=== PATIENT | female | born 1940 | race Caucasian/White ===

== ENCOUNTER 2016-08-03 22:06 | Emergency (ER) | payer MEDICARE, BC ==
--- NOTE | 2016-08-04 00:02 | ER Document Report ---
ED Medical Screen (RME) - General Stated Complaint: ABDOMINAL PAIN Time seen by provider: 23:57 Mode of Arrival: Ambulatory Information source: Patient Notes: 75-year-old female presents to ED for abdominal pain today is no nausea or vomiting or diarrhea. She last bowel movement was yesterday. States she had a "blocked colon "at one time. Patient states she has a history of low blood pressure but her pressure is 174/90 in the emergency room pulse is 76. Recheck on blood pressure was 157/84. Temp was 100.4 when they first at the vital signs now it is 99.4. Pulse ox 96 and pulse 114 I have greeted and performed a rapid initial assessment of this patient. A comprehensive ED assessment and evaluation of the patient, analysis of test results and completion of medical decision making process will be conducted by an additional ED providers. TRAVEL OUTSIDE OF THE [place] IN LAST 30 DAYS: No - Related Data Allergies/Adverse Reactions: ibuprofen [Ibuprofen] Allergy (Verified 09/10/13 14:50) ITCHING naproxen sodium [From Aleve] Allergy (Verified 09/10/13 14:50) ITCHING, PASSES OUT, SHOCK Penicillins Allergy (Verified 09/10/13 14:50) Hives theophylline anhydrous [From Theophyl] Allergy (Verified 09/10/13 14:50) Hives adhesive tape [Adhesive Tape] Adverse Reaction (Mild, Verified 09/10/13 14:50) rash Past Medical History Pulmonary Medical History: Reports: Hx Asthma, Hx COPD, Hx Pneumonia - 2009 Musculoskeltal Medical History: Reports Hx Arthritis - Hands and Spine Psychiatric Medical History: Denies: Hx Depression Past Surgical History: Reports: Hx Appendectomy, Hx Bowel Surgery, Hx Tubal Ligation - Immunizations Hx Diphtheria, Pertussis, Tetanus Vaccination: Yes Physical Exam - Vital signs Vitals: Temp Pulse Resp BP Pulse Ox 100.4 F 56 L 20 174/90 H 85 L 08/03/16 22:59 08/03/16 22:59 08/03/16 22:59 08/03/16 22:59 08/03/16 22:59 Course - Vital Signs Vital signs: Temp Pulse Resp BP Pulse Ox 100.4 F 56 L 20 174/90 H 85 L 08/03/16 22:59 08/03/16 22:59 08/03/16 22:59 08/03/16 22:59 08/03/16 22:59
[2016-08-04 01:10] LABS: HEMATOCRIT 47.3 % (36.0-47.0); HEMOGLOBIN 16.2 g/dL (12.0-15.5); HGB HCT DIFFERENCE 1.3; MEAN CORPUSCULAR HEMOGLOBIN 30.9 pg (27.0-33.4); MEAN CORPUSCULAR HGB CONC 34.2 g/dL (32.0-36.0); MEAN CORPUSCULAR VOLUME 90 fl (80-97); RED BLOOD COUNT 5.24 10^6/uL (3.72-5.28); RED CELL DISTRIBUTION WIDTH 12.9 % (11.5-14.0); WHITE BLOOD COUNT 15.3 10^3/uL (4.0-10.5)
[2016-08-04 01:12] LABS: APPEARANCE,URINE SLIGHTLY-CLOUDY; BILIRUBIN,URINE NEGATIVE (NEGATIVE); GLUCOSE, URINE NEGATIVE (NEGATIVE); KETONES,URINE 80 mg/dL (NEGATIVE); LEUKOCYTE ESTERASE,URINE TRACE (NEGATIVE); NITRITE,URINE NEGATIVE (NEGATIVE); PROTEIN,URINE NEGATIVE (NEGATIVE); URINE SPECIFIC GRAVITY 1.013; UROBILINOGEN,URINE NEGATIVE mg/dL (<2.0)
[2016-08-04 01:32] LABS: BAND NEUTROPHILS % (MANUAL) 3 % (3-5); BASOPHILS % (MANUAL) 0 % (0-2); EOSINOPHILS % (MANUAL) 0 % (0-6); LYMPHOCYTES % (MANUAL) 5 % (13-45); TOTAL CELLS COUNTED 100
[2016-08-04 01:33] LABS: OVALOCYTES 1+; POIKILOCYTOSIS 2+; STOMATOCYTES 1+; TEAR DROP CELLS 1+; TOXIC GRANULATION 1+; TOXIC VACUOLATION PRESENT
[2016-08-04 02:17] LABS: ALANINE AMINOTRANSFERASE 32 U/L (9-52); ALBUMIN 3.6 g/dL (3.5-5.0); ALKALINE PHOSPHATASE 83 U/L (38-126); ANION GAP 6 (5-19); ASPARTATE AMINO TRANSFERASE 29 U/L (14-36); BILIRUBIN,TOTAL 0.9 mg/dL (0.2-1.3); BLOOD UREA NITROGEN 8 mg/dL (7-20); CALCIUM 9.1 mg/dL (8.4-10.2); CARBON DIOXIDE 27 mmol/L (22-30); CHLORIDE 92 mmol/L (98-107); CREATININE RESULT 0.52 mg/dL (0.52-1.25); GLUCOSE 119 mg/dL (75-110); LIPASE 13.4 U/L (23-300); POTASSIUM 4.5 mmol/L (3.6-5.0); TOTAL PROTEIN 6.1 g/dL (6.3-8.2)
[2016-08-04] MEDS ORDERED: NORMAL SALINE 1000 ML 500 ML IV ONE (02:25)
--- NOTE | 2016-08-04 02:28 | ER Document Report ---
ED General - General Chief Complaint: Abdominal Pain >50 Stated Complaint: ABDOMINAL PAIN Mode of Arrival: Ambulatory Notes: Patient is a 75-year-old female presents with complaint of abdominal pain. Some nausea. No vomiting. No fevers. No diarrhea. Last bowel movement was yesterday. She has passed some gas today. She is a history of multiple abdominal surgeries including appendectomy, distract me, and removal of adhesions due to bowel obstruction. No runny nose cough or congestion. No other complaints at this time. TRAVEL OUTSIDE OF THE [place] IN LAST 30 DAYS: No - Related Data Allergies/Adverse Reactions: ibuprofen [Ibuprofen] Allergy (Verified 08/03/16 23:57) ITCHING naproxen sodium [From Aleve] Allergy (Verified 08/03/16 23:57) ITCHING, PASSES OUT, SHOCK Penicillins Allergy (Verified 08/03/16 23:57) Hives theophylline anhydrous [From Theophyl] Allergy (Verified 08/03/16 23:57) Hives adhesive tape [Adhesive Tape] Adverse Reaction (Mild, Verified 08/03/16 23:57) rash Past Medical History - General Information source: Patient - Social History Smoking Status: Former Smoker Chew tobacco use (# tins/day): No Frequency of alcohol use: None Drug Abuse: None Family History: Reviewed & Not Pertinent Patient has suicidal ideation: No Patient has homicidal ideation: No Pulmonary Medical History: Reports: Hx Asthma, Hx COPD, Hx Pneumonia - 2009 Renal/ Medical History: Denies: Hx Peritoneal Dialysis Musculoskeltal Medical History: Reports Hx Arthritis - Hands and Spine Psychiatric Medical History: Denies: Hx Depression Past Surgical History: Reports: Hx Appendectomy, Hx Bowel Surgery, Hx Tubal Ligation - Immunizations Hx Diphtheria, Pertussis, Tetanus Vaccination: Yes Hx Pneumococcal Vaccination: 06/15/10 Review of Systems - Review of Systems Notes: My Normal Review Basic REVIEW OF SYSTEMS: CONSTITUTIONAL : Denies fever, chills, or sweats. Denies recent illness. EENT: Denies eye, ear, throat, or mouth pain or symptoms. Denies nasal or sinus congestion. CARDIOVASCULAR: Denies chest pain. RESPIRATORY: Denies cough, cold, or chest congestion. Denies shortness of breath, difficulty breathing, or wheezing. GASTROINTESTINAL: Abdominal pain GENITOURINARY: Denies difficulty urinating, painful urination, burning, frequency, or blood in urine. MUSCULOSKELETAL: Denies neck or back pain or joint pain or swelling. SKIN: Denies rash or skin lesions. NEUROLOGICAL: Denies altered mental status or loss of consciousness. Denies headache. Denies weakness or paralysis or loss of use of either side. Denies problems with gait or speech. Denies sensory or motor loss. ALL OTHER SYSTEMS REVIEWED AND NEGATIVE. Physical Exam - Vital signs Vitals: Temp Resp BP 100.4 F 20 174/90 H 08/03/16 22:59 08/03/16 22:59 08/03/16 22:59 - Notes Notes: General Appearance: Well nourished, alert, cooperative, no acute distress, moderate obvious discomfort. Vitals: reviewed, See vital signs table. Head: no swelling or tenderness to the head Eyes: PERRL, EOMI, Conjuctiva clear Mouth: No decreasd moisture Neck: Supple, no neck tenderness, No thyromegaly Lungs: No wheezing, No rales, No rhonci, No accessory muscle use, good air exchange bilaterally. Heart: Normal rate, Regular rythm, No murmur, no rub Abdomen: Normal BS, soft, No rigidity, mild to moderate right lower quadrant abdominal tenderness to palpation, No guarding, no rebound, no abdominal masses , no organomegaly Extremities: strength 5/5 in all extremities, good pulses in all extremities, no swelling or tenderness in the extremities, no edema. Skin: warm, dry, appropriate color, no rash Neuro: speech clear, oriented x 3, normal affect, responds appropriately to questions. Course - Vital Signs Vital signs: Temp Pulse Resp BP Pulse Ox 99.5 F 62 20 164/86 H 95 08/04/16 04:05 08/04/16 04:05 08/04/16 04:05 08/04/16 04:05 08/04/16 04:05 - Laboratory Result Diagrams: 08/04/16 00:35 08/04/16 05:51 Laboratory results interpreted by me: 08/04/16 08/04/16 08/04/16 00:35 00:35 01:46 WBC 15.3 H Hgb 16.2 H Hct 47.3 H Seg Neuts % (Manual) 83 H Lymphocytes % (Manual) 5 L Abs Neuts (Manual) 13.2 H Sodium 125.0 L Chloride 92 L Creatinine Glucose 119 H Calcium Total Protein 6.1 L Lipase 13.4 L Urine Ketones 80 H Ur Leukocyte Esterase TRACE H 08/04/16 05:51 WBC Hgb Hct Seg Neuts % (Manual) Lymphocytes % (Manual) Abs Neuts (Manual) Sodium 125.7 L Chloride 95 L Creatinine 0.39 L Glucose 115 H Calcium 7.9 L Total Protein Lipase Urine Ketones Ur Leukocyte Esterase - Transfer of Care Notes: 08/04/16 06:55 The exact cause of the patient's symptoms are unclear. CT scan was negative. Urinalysis is negative. I'm concerned with patient's current state. She is hyponatremic. She's not confused from this. She's awake and alert very much with it and able answer all my questions appropriately. My concern is that she is also become tachycardic and tachypneic. Her lung iqbal are clear. I discussed with her and her that I feel that she should stay in hospital. My concern is that she could becoming septic. I'm concerned her hyponatremia could get worse. Patient refuses to stay. I explained to her that she will probably get more sick and become severely ill which could potentially to . Patient and understand this and she still refuses to stay. I informed patient if she does decide to go home that she must follow up with her doctor or us within the next 1-2 days to be rechecked. I informed her that I strongly encourage her to return to the ER at anytime so that we can reevaluate her and treat her. I informed her that we are not mad at her for leaving and that we just want the right thing done for her and that we strongly wish her to stay. I also reiterated this to the patient a second time after I typed up the discharge paperwork as she requested. Patient still refuses to stay again. We'll place her on Levaquin due to the low-grade fever and onset of difficulty breathing. I do not know if this will s help her because I do not know the exact cause of the fever that she had when she came in and why her breathing is starting to become abnormal and she started to come tachycardic. I again strongly encourage patient to stay. She again refuses. Her agrees that she will come back immediately if her symptoms worsen. Patient is awake and alert and oriented. She's neurologically appropriate. I cannot hold her against her will. I will discharge her against medical advice as she requests. Dictation of this chart was performed using voice recognition software; therefore, there may be some unintended grammatical errors. Discharge - Discharge Clinical Impression: Hyponatremia Abdominal pain Qualifiers: Abdominal location: unspecified location Qualified Code(s): R10.9 - Unspecified abdominal pain Condition: Stable Disposition: AGAINST MEDICAL ADVICE Additional Instructions: The exact cause of your abdominal pain is not clear. Your sodium level is considerably low. You now appear short of breath. I really feel that you should stay in the hospital. It is ultimately your choice and we respect your your right to make the choice that you want to leave against medical office representative. My concern is that your sodium could become even lower which could make you very sick and potentially could cause you to become very confused, very weak, and can sometimes lead to . We strongly encourage your to return to the ER at anytime for reevaluation and for further treatment. Please follow up with your doctor as soon as possible if you do not want to come back to the ER. Please eat salt containing foods. Return to the ER immediately if you have fevers, feel more weak, have vomiting, or feel that you are worsening. Prescriptions: Levofloxacin [Levaquin 750 mg Tablet] 750 mg PO DAILY #10 tablet Referrals: JANEEN CARLOS MD [Primary Care Provider] - (Follow up as soon as possible.)
[2016-08-04 04:06] VITALS: BP 164/86
[2016-08-04 06:27] LABS: ANION GAP 8 (5-19); BLOOD UREA NITROGEN 7 mg/dL (7-20); CALCIUM 7.9 mg/dL (8.4-10.2); CARBON DIOXIDE 23 mmol/L (22-30); CHLORIDE 95 mmol/L (98-107); CREATININE RESULT 0.39 mg/dL (0.52-1.25); GLUCOSE 115 mg/dL (75-110); POTASSIUM 3.8 mmol/L (3.6-5.0); SODIUM 125.7 mmol/L (137-145)
[2016-08-04] MEDS ORDERED: LEVOFLOXACIN 750 MG TABLET PO ONE (06:50)
== END 2016-08-04 07:07 | disposition left against medical advice (07) ==
LOC: ER 22:06
DX: E87.1 Hypo-osmolality and hyponatremia (principal); R10.9 Unspecified abdominal pain; R11.0 Nausea
CPT/HCPCS: 99285; 36415; 83690; 85025; 80048; 80053; 81001; 74022; 74177; A9270

== ENCOUNTER 2016-08-04 07:23 | Observation (INO) | payer MEDICARE, BC ==
--- NOTE | 2016-08-04 07:54 | ER Document Report ---
ED General - General Mode of Arrival: Wheelchair Information source: Patient TRAVEL OUTSIDE OF THE [place] IN LAST 30 DAYS: No - HPI Patient complains to provider of: diarrhea Onset: Just prior to arrival Onset/Duration: Sudden Associated symptoms: Shortness of breath, Weakness Recently seen / treated by doctor: Yes - Dr. Izquierdo 08/04/2016 <ASHLEIGH LEE - Last Filed: 08/04/16 08:09> <ANTHONY EDDY - Last Filed: 08/04/16 12:16> - General Chief Complaint: Diarrhea Stated Complaint: WEAKNESS Notes: Patient is a 75-year-old female presenting to the emergency department after just leaving AGAINST MEDICAL ADVICE. Patient returned because when she got in her car in the parking lot, she began to have watery diarrhea and felt very weak. Patient was seen by Dr. Izquierdo last night for right lower quadrant abdominal pain that began yesterday afternoon. Patient states her abdominal pain has resolved since she had her bout of diarrhea. Dr. Izquierdo attempted to admit the patient because she became tachycardic, tachypneic, and she was hyponatremic with a raised white blood cell count, but the patient refused to stay. Patient states that she regularly has difficulty breathing, and this is not abnormal for her. Patient is not on oxygen at home. (ASHLEIGH LEE) - Related Data Allergies/Adverse Reactions: ibuprofen [Ibuprofen] Allergy (Verified 08/03/16 23:57) ITCHING naproxen sodium [From Aleve] Allergy (Verified 08/03/16 23:57) ITCHING, PASSES OUT, SHOCK Penicillins Allergy (Verified 08/03/16 23:57) Hives theophylline anhydrous [From Theophyl] Allergy (Verified 08/03/16 23:57) Hives adhesive tape [Adhesive Tape] Adverse Reaction (Mild, Verified 08/03/16 23:57) rash Home Medications: Current Home Medications Albuterol Sulfate [Albuterol Sulfate 2.5mg/3 mL] 1 vial IH Q6H 08/04/16 [History ] Albuterol Sulfate [Proair HFA Inhalation Aerosol 8.5 gm MDI] 2 puff IH QID 08/04 [History] Fluticasone/Salmeterol [Advair 250-50 Diskus 28 dose] 1 puff IH Q12 08/04/16 [ History] Multivitamin [Multivitamins] 1 cap PO DAILY 08/04/16 [History] Olopatadine HCl [Pataday] 1 drop OU DAILY 08/04/16 [History] Tiotropium [place] [Spiriva Respimat] 2 puff IH QAM 08/04/16 [History] Past Medical History - General Information source: Patient - Social History Smoking Status: Former Smoker Lives with: Spouse/Significant other Family History: Reviewed & Not Pertinent Pulmonary Medical History: Reports: Hx Asthma, Hx COPD, Hx Pneumonia - 2009 Renal/ Medical History: Denies: Hx Peritoneal Dialysis Musculoskeltal Medical History: Reports Hx Arthritis - Hands and Spine Psychiatric Medical History: Denies: Hx Depression Past Surgical History: Reports: Hx Appendectomy, Hx Bowel Surgery, Hx Tubal Ligation - Immunizations Hx Diphtheria, Pertussis, Tetanus Vaccination: Yes Hx Pneumococcal Vaccination: 06/15/10 <ASHLEIGH LEE - Last Filed: 08/04/16 08:09> Review of Systems - Review of Systems Constitutional: See HPI, Weakness EENT: No symptoms reported Cardiovascular: No symptoms reported Respiratory: See HPI, Short of breath Gastrointestinal: See HPI, Diarrhea Genitourinary: No symptoms reported Female Genitourinary: No symptoms reported Musculoskeletal: No symptoms reported Skin: No symptoms reported Hematologic/Lymphatic: No symptoms reported Neurological/Psychological: No symptoms reported <ASHLEIGH LEE - Last Filed: 08/04/16 08:09> Physical Exam - General General appearance: Alert - HEENT Head: Normocephalic, Atraumatic Eyes: Normal Pupils: PERRL - Respiratory Respiratory status: Pursed lip breathing - Patient states this is normal for her., Tachypnea Chest status: Nontender - Cardiovascular Rhythm: Regular Heart sounds: Normal auscultation Murmur: No - Abdominal Inspection: Normal - Soft Distension: No distension Bowel sounds: Normal Tenderness: Nontender Organomegaly: No organomegaly - Back Back: Normal, Nontender - Extremities General upper extremity: Nontender, Normal color, Normal temperature General lower extremity: Nontender, Normal color, Normal temperature - Neurological Neuro grossly intact: Yes Cognition: Normal Orientation: AAOx4 [place] Coma Scale Eye Opening: Spontaneous [place] Coma Scale Verbal: Oriented [place] Coma Scale Motor: Obeys Commands [place] Coma Scale Total: 15 Speech: Normal - Psychological Associated symptoms: Normal affect, Normal mood - Skin Skin Temperature: Warm Skin Moisture: Dry Skin Color: Normal <JESUSERINASHLEIGH - Last Filed: 08/04/16 08:09> Course - Laboratory Result Diagrams: 08/04/16 07:58 08/04/16 07:58 - EKG Interpretation by Sd EKG shows normal: Sinus rhythm, Intervals, QRS Complexes, ST-T Waves. abnormal : [place] Rate: Tachycardia - 115 [place]/QRS: Right axis deviation When compared to previous EKG there are: No significant change - Consults Dr. Cunningham Time consulted: 11:00 Consulted provider: will come to ER <ANTHONY EDDY - Last Filed: 08/04/16 12:16> - Vital Signs Vital signs: Temp Pulse Resp BP Pulse Ox 97.8 F 105 H 15 129/84 H 94 08/04/16 11:20 08/04/16 11:20 08/04/16 11:20 08/04/16 11:20 08/04/16 11:20 (ANTHONY EDDY) - Laboratory Laboratory results interpreted by me: 08/04/16 08/04/16 08/04/16 07:58 07:58 07:58 WBC 18.3 H Seg Neuts % (Manual) 79 H Band Neutrophils % 10 H D Lymphocytes % (Manual) 3 L Abs Neuts (Manual) 16.3 H Sodium 126.0 L Chloride 91 L Glucose 136 H Lactic Acid Creatine Kinase 195 H Total Protein 6.1 L Urine Ketones Stool for White Cells RARE H 08/04/16 08/04/16 09:18 10:00 WBC Seg Neuts % (Manual) Band Neutrophils % Lymphocytes % (Manual) Abs Neuts (Manual) Sodium Chloride Glucose Lactic Acid 2.4 H Creatine Kinase Total Protein Urine Ketones 20 H Stool for White Cells (ANTHONY EDDY) Discharge <ASHLEIGH LEE - Last Filed: 08/04/16 08:09> - Discharge Admitting Provider: Hospitalist Unit Admitted: Medical Floor <ANTHONY EDDY - Last Filed: 08/04/16 12:16> - Discharge Clinical Impression: Diarrhea Qualifiers: Diarrhea type: unspecified type Qualified Code(s): R19.7 - Diarrhea, unspecified Leukocytosis Qualifiers: Leukocytosis type: bandemia Qualified Code(s): D72.825 - Bandemia COPD (chronic obstructive pulmonary disease) Qualifiers: COPD type: chronic bronchitis Chronic bronchitis type: unspecified Qualified Code(s): J42 - Unspecified chronic bronchitis Condition: Good Disposition: ADMITTED OBSERVATION Scribe Attestation: 08/04/16 11:48 I personally performed the services described in the documentation, reviewed and edited the documentation which was dictated to the scribe in my presence, and it accurately records my words and actions. (ANTHONY EDDY) Scribe Documentation - Scribe Written by Doug:: Ashleigh Lee 08/04/2016 [id number] acting as scribe for :: Franklin <ASHLEIGH LEE - Last Filed: 08/04/16 08:09>
[2016-08-04] MEDS ORDERED: NORMAL SALINE 1000 ML 1,000 ML IV ONE (07:55)
[2016-08-04 08:22] LABS: HEMATOCRIT 46.6 % (36.0-47.0); HEMOGLOBIN 15.5 g/dL (12.0-15.5); HGB HCT DIFFERENCE -0.1; MEAN CORPUSCULAR HEMOGLOBIN 30.4 pg (27.0-33.4); MEAN CORPUSCULAR HGB CONC 33.3 g/dL (32.0-36.0); MEAN CORPUSCULAR VOLUME 91 fl (80-97); RED CELL DISTRIBUTION WIDTH 13.2 % (11.5-14.0); WHITE BLOOD COUNT 18.3 10^3/uL (4.0-10.5)
[2016-08-04 08:40] LABS: ALANINE AMINOTRANSFERASE 29 U/L (9-52); ALBUMIN 3.5 g/dL (3.5-5.0); ALKALINE PHOSPHATASE 77 U/L (38-126); ANION GAP 10 (5-19); ASPARTATE AMINO TRANSFERASE 30 U/L (14-36); BILIRUBIN,TOTAL 1.2 mg/dL (0.2-1.3); BLOOD UREA NITROGEN 7 mg/dL (7-20); CALCIUM 8.8 mg/dL (8.4-10.2); CARBON DIOXIDE 25 mmol/L (22-30); CHLORIDE 91 mmol/L (98-107); CREATINE KINASE 195 U/L (30-135); CREATININE RESULT 0.59 mg/dL (0.52-1.25); GLUCOSE 136 mg/dL (75-110); POTASSIUM 4.3 mmol/L (3.6-5.0); TOTAL PROTEIN 6.1 g/dL (6.3-8.2)
[2016-08-04 08:43] LABS: BAND NEUTROPHILS % (MANUAL) 10 % (3-5); BASOPHILS % (MANUAL) 0 % (0-2); EOSINOPHILS % (MANUAL) 0 % (0-6); LYMPHOCYTES % (MANUAL) 3 % (13-45); TOTAL CELLS COUNTED 100
[2016-08-04 08:44] LABS: RBC MORPHOLOGY COMMENT NORMO-CYTIC/CHROMIC; TOXIC GRANULATION 1+
[2016-08-04 08:53] LABS: CREATINE KINASE MB 2.59 ng/mL (<4.55)
[2016-08-04 08:55] LABS: TROPONIN I < 0.012 ng/mL
[2016-08-04] MEDS ORDERED: METRONIDAZOLE 500 MG/NS RTU 100 ML IV ONE (09:43)
[2016-08-04 10:18] LABS: APPEARANCE,URINE CLEAR; BILIRUBIN,URINE NEGATIVE (NEGATIVE); GLUCOSE, URINE NEGATIVE (NEGATIVE); KETONES,URINE 20 mg/dL (NEGATIVE); LEUKOCYTE ESTERASE,URINE NEGATIVE (NEGATIVE); NITRITE,URINE NEGATIVE (NEGATIVE); PROTEIN,URINE NEGATIVE (NEGATIVE); URINE SPECIFIC GRAVITY 1.014; UROBILINOGEN,URINE NEGATIVE mg/dL (<2.0)
[2016-08-04] MEDS ORDERED: ALBUTEROL SULFATE 0.083% NEB 2.5 MG/3 ML AMPUL NEB PRN (12:00)
[2016-08-04] MEDS ORDERED: NORMAL SALINE 1000 ML 1,000 ML IV PRN (12:00)
[2016-08-04] MEDS ORDERED: ACETAMINOPHEN 325 MG TABLET PO PRN (12:00)
--- NOTE | 2016-08-04 12:29 | PDOC H&P ---
History of Present Illness Admission Date/PCP: 08/04/16 11:49 JANEEN CARLOS MD Patient complains of: Abdominal pain History of Present Illness: AXEL NORMAN is a 75 year old female with a long history of COPD who quit smoking 2 days ago presents with abdominal pain. The patient reports she's had right lower quadrant pain for the last 2 days and presented to emergency room yesterday evening. She had a CT done which showed no obvious abnormalities however given her leukocytosis it was recommended that she come in as an inpatient. Patient refused to come in and went out to her car. She then had explosive diarrhea after having gotten oral contrast for CT scan. Patient presented back to emergency room and agreed for admission. The patient has a history of diverticulitis in the past. She also has had problems with a very narrow caliber twisted colon according to her anaesthetic technician. He had to use a pediatric scope to do her colonoscopy the last time. The patient at the time of my exam reports that her abdominal pain has completely resolved. She denies having any fevers or chills but did have the elevated white blood cell count. She denies any radiation of the pain when she had it and she reports that the pain was relieved after she had her bowel movement. Patient will be admitted as observation for overnight monitoring to make certain her pain has indeed resolved. She is started on Cipro and Flagyl for presumed diverticulitis. Past Medical History Pulmonary Medical History: Reports: Asthma, Chronic Obstructive Pulmonary Disease (COPD), Pneumonia - 2009 Neurological Medical History: Reports: None Endocrine Medical History: Reports: None Renal/ Medical History: Reports: None Malignancy Medical History: Reports: None GI Medical History: Reports: Diverticulitis Musculoskeltal Medical History: Reports: Arthritis - Hands and Spine Skin Medical History: Reports: None Psychiatric Medical History: Reports: General Anxiety Disorder Denies: Depression Traumatic Medical History: Reports: None Hematology: Denies: Anemia, Sickle Cell Disease Infectious Medical History: Reports: None Past Surgical History Past Surgical History: Reports: Appendectomy, Tubal Ligation Denies: Amputation Social History Information Source: Patient Lives with: Spouse/Significant other Smoking Status: Current Every Day Smoker Cigarettes Packs Per Day: 0.5 Frequency of Alcohol Use: Occasional Hx Recreational Drug Use: No Drugs: None Hx Prescription Drug Abuse: No - Advance Directive Resuscitation Status: Do Not Resuscitate Surrogate healthcare decision maker:: Her Family History Family History: Father at age 62 with an aneurysm. Mother at age 82 with coronary artery disease. Parental Family History Reviewed: Yes Children Family History Reviewed: No Sibling(s) Family History Reviewed.: No Medication/Allergy Home Medications: Albuterol Sulfate [Albuterol Sulfate 2.5mg/3 mL] 1 vial IH Q6H 08/04/16 Albuterol Sulfate [Proair HFA Inhalation Aerosol 8.5 gm MDI] 2 puff IH QID 08/04 Fluticasone/Salmeterol [Advair 250-50 Diskus 28 dose] 1 puff IH Q12 08/04/16 Multivitamin [Multivitamins] 1 cap PO DAILY 08/04/16 Olopatadine HCl [Pataday] 1 drop OU DAILY 08/04/16 Tiotropium [place] [Spiriva Respimat] 2 puff IH QAM 08/04/16 Allergies/Adverse Reactions: ibuprofen [Ibuprofen] Allergy (Verified 08/03/16 23:57) ITCHING naproxen sodium [From Aleve] Allergy (Verified 08/03/16 23:57) ITCHING, PASSES OUT, SHOCK Penicillins Allergy (Verified 08/03/16 23:57) Hives theophylline anhydrous [From Theophyl] Allergy (Verified 08/03/16 23:57) Hives adhesive tape [Adhesive Tape] Adverse Reaction (Mild, Verified 08/03/16 23:57) rash Review of Systems Constitutional: ABSENT: chills, fever(s), headache(s), weight gain, weight loss Eyes: ABSENT: visual disturbances Ears: ABSENT: hearing changes Cardiovascular: ABSENT: chest pain, dyspnea on exertion, edema, orthropnea, palpitations Respiratory: ABSENT: cough, hemoptysis Gastrointestinal: PRESENT: as per HPI Genitourinary: ABSENT: dysuria, hematuria Musculoskeletal: ABSENT: joint swelling Integumentary: ABSENT: rash, wounds Neurological: ABSENT: abnormal gait, abnormal speech, confusion, dizziness, focal weakness, syncope Psychiatric: ABSENT: anxiety, depression Endocrine: ABSENT: cold intolerance, heat intolerance, polydipsia, polyuria Hematologic/Lymphatic: ABSENT: easy bleeding, easy bruising Physical Exam Vital Signs: Temp Pulse Resp BP Pulse Ox 97.8 F 105 H 15 129/84 H 94 08/04/16 11:20 08/04/16 11:20 08/04/16 11:20 08/04/16 11:20 08/04/16 11:20 General appearance: PRESENT: no acute distress, thin Head exam: PRESENT: atraumatic, normocephalic Eye exam: PRESENT: conjunctiva pink, EOMI, PERRLA. ABSENT: scleral icterus Ear exam: PRESENT: normal external ear exam Mouth exam: PRESENT: moist, tongue midline Neck exam: ABSENT: carotid bruit, JVD, lymphadenopathy, thyromegaly Respiratory exam: PRESENT: clear to auscultation henri. ABSENT: rales, rhonchi, wheezes Cardiovascular exam: PRESENT: RRR. ABSENT: diastolic murmur, rubs, systolic murmur Pulses: PRESENT: normal dorsalis pedis pul GI/Abdominal exam: PRESENT: normal bowel sounds, soft. ABSENT: distended, guarding, mass, organolmegaly, rebound, tenderness Rectal exam: PRESENT: deferred Extremities exam: ABSENT: calf tenderness, clubbing, pedal edema Neurological exam: PRESENT: alert, awake, oriented to person, oriented to place , oriented to time, oriented to situation, CN II-XII grossly intact. ABSENT: motor sensory deficit Psychiatric exam: PRESENT: appropriate affect, normal mood Skin exam: PRESENT: dry, intact, warm. ABSENT: cyanosis, rash Assessment & Plan - Diagnosis (1) Abdominal pain Qualifiers: Abdominal location: unspecified location Qualified Code(s): R10.9 - Unspecified abdominal pain Is this a current diagnosis for this admission?: YesPlan: Pain most likely secondary to diverticulitis. (2) Diverticulitis Is this a current diagnosis for this admission?: YesPlan: Patient has dry lower quadrant pain that has resolved after a large bowel movement. She does have a history of a narrow stricture:. There may be a component of partial obstruction to this. Patient does not have any evidence for obstruction at this time and the CAT scan showed no evidence for acute inflammation. We'll treat presumptively for diverticulitis with Cipro and Flagyl. If Her white count decreases overnight she can hopefully be discharged home tomorrow. (3) Tobacco dependency Is this a current diagnosis for this admission?: YesPlan: Patient told me that she quit smoking however when asked she quit 2 days ago she started with symptoms. Patient is encouraged to quit smoking (4) Anxiety Is this a current diagnosis for this admission?: Yes (5) Hyponatremia Is this a current diagnosis for this admission?: YesPlan: We'll give IV fluids and monitor. (6) COPD (chronic obstructive pulmonary disease) Qualifiers: COPD type: chronic bronchitis Chronic bronchitis type: unspecified Qualified Code(s): J42 - Unspecified chronic bronchitis Is this a current diagnosis for this admission?: YesPlan: Patient reports that she is at her baseline respiratory status now. - Time Time Spent: 50 to 70 Minutes - Inpatient Certification Medical Necessity: Need for IV Antibiotics - Plan Summary Plan Summary: Patient will be made an observation as I anticipate his require less than two midnight hospital stay
[2016-08-04] MEDS: METRONIDAZOLE 500 MG/NS RTU 100 ML IV SCH ×2 (15:52→22:36)
[2016-08-04] MEDS: CIPROFLOXACIN 400 MG/D5W RTU 400 MG/200 ML RTUPB IV SCH (17:29)
[2016-08-04] MEDS: ALBUTEROL SULFATE HFA (90 MCG/PUFF) 200 PUFF/8.5 GM MDI IH SCH ×2 (18:27→21:28)
--- NOTE | 2016-08-04 20:08 | EKG REPORT ---
SEVERITY:- OTHERWISE NORMAL ECG - SINUS TACHYCARDIA BORDERLINE RIGHT AXIS DEVIATION : Confirmed by: Brandie Erickson 04-Aug-2016 20:07:24
[2016-08-04] MEDS ORDERED: TRAZODONE HCL 50 MG TABLET PO ONE (20:45)
[2016-08-04] MEDS: FAMOTIDINE 20 MG TABLET PO SCH (21:25)
[2016-08-04] MEDS: FLUTICASONE/SALMETEROL DISKUS 250-50 MCG/DOSE IH SCH (21:27)
[2016-08-05] MEDS: METRONIDAZOLE 500 MG/NS RTU 100 ML IV SCH ×2 (03:01→09:29)
[2016-08-05] MEDS: CIPROFLOXACIN 400 MG/D5W RTU 400 MG/200 ML RTUPB IV SCH (05:48)
[2016-08-05 07:07] LABS: HEMATOCRIT 40.5 % (36.0-47.0); HEMOGLOBIN 13.8 g/dL (12.0-15.5); HGB HCT DIFFERENCE 0.9; MEAN CORPUSCULAR HEMOGLOBIN 30.8 pg (27.0-33.4); MEAN CORPUSCULAR HGB CONC 34.2 g/dL (32.0-36.0); MEAN CORPUSCULAR VOLUME 90 fl (80-97); RED CELL DISTRIBUTION WIDTH 13.2 % (11.5-14.0)
[2016-08-05 07:23] LABS: ANION GAP 6 (5-19); BLOOD UREA NITROGEN 8 mg/dL (7-20); CALCIUM 8.5 mg/dL (8.4-10.2); CARBON DIOXIDE 25 mmol/L (22-30); CHLORIDE 102 mmol/L (98-107); CREATININE RESULT 0.42 mg/dL (0.52-1.25); GLUCOSE 125 mg/dL (75-110); POTASSIUM 3.9 mmol/L (3.6-5.0); SODIUM 132.8 mmol/L (137-145)
[2016-08-05] MEDS: FAMOTIDINE 20 MG TABLET PO SCH (09:29)
[2016-08-05] MEDS: ALBUTEROL SULFATE HFA (90 MCG/PUFF) 200 PUFF/8.5 GM MDI IH SCH ×2 (09:30→13:53)
[2016-08-05] MEDS: FLUTICASONE/SALMETEROL DISKUS 250-50 MCG/DOSE IH SCH (09:30)
--- NOTE | 2016-08-05 09:50 | Physician Advisory Note ---
Physician Advisor ProgressNote .: Pursuant to the plan for [facility], I have reviewed the medical record for this patient. Physician Advisor Statement: Possible documentation opportunities if attending agrees: 1. "SIRS, likely due to ____[noninfectious cause], present on arrival" - vs. "[employer] [place] 5Bd possible sepsis due to diverticulitis, POA, ruled out/in" - tachycardia, leukocytosis, high lactate level, ... 2. ? - new dx of "chronic hypoxemic Respiratory Failure needing ___L O2" ? 3. "Acute Hyponatremia, likely due to ____" (?intravascular volume depletion? - need to give cause) 4. Status points in bold below - may be approp to make Inpt today, with documentation of reasons. Feel free to use points below w/which you agree. 5. "underweight with protein-calorie malnutrition [state mild, mod, or severe] with BMI 17.3, ____[?wt loss, ?appetite loss, ]" [if possible, give specifics on intake, wt loss, loss of SQ fat & muscle mass, diminished hand service administrator strength, & clinical importance such as (A) nutritional assessment ordered, (B) modified diet or supplements ordered, (C) additional labs ordered, (D) prolonged wound healing time, (E) delayed infxn clearance] - - - Auditors are strict about the dx of malnutrition - needs to be explicitly spelled out. As always, if concerned about any unstable VS or abnormal labs, please comment on them & note what doing about them, & please document each day the potential clinical problems you are concerned could occur if pt not kept in hospital for tx at this time. Discussion: 75yo female w/ chronic co-morbidities including COPD, asthma, tobacco abuse she reports she quit 2 days ago when sx began, diverticulitis, "very narrow caliber twisted colon" insufficient to allow passage of usual adult scope, who was just seen overnight in ED for RLQ pain & was advised admission due to tachypnea/ tachycardia/leukocytosis/hyponatremia but left AMA (after CT with po contrast), - presented 2/20 AM to ED w/diarrhea & feeling very weak. She reported her pursed lip breathing, difficulty breathing is baseline for her & she doesn't use O2 at home. RLQ pain resolved after the diarrhea. (+) HR 105, RR15, BP 129/84, WBC 18.3 w/Lt shift/bandemia, Na 126, glc 136, fecal leukocytes (+) tho'rare, lactate level 2.4, ur ketones 20, recent CT on was neg for acute findings. BMI 17.3. Attending ordered Status: Elderly pt with underlying severe lung dz & unusually narrow caliber colon came in with RLQ pain that then resolved after developing diarrhea (?due to contrast) . Most concerning = the accompanying vital sign instability & leukocytosis with bandemia, SIRS vs sepsis, severe acute hyponatremia. Appropriately kept as Outpt Obs overnight. After 1 MN this visit so far, WBC down to 11.0 (still not WNL, though), she has developed new thrombocytopenia (which could be a delayed result of initial sepsis, or a new development itself, but is a prominent drop from 210 to 130). Na is up to 132.8 but is still not back to her baseline of mid 130s. She remains persistently tachycardic recurrently tachypneic. Sats as low as 93% on 2L O2 (gives P/F ratio of 243, which is equivalent to a pO2 of 51 - or sat 86 % - on RA), indicative of either acute or chronic hypoxemic resp failure. If on re-assessment of pt today, attending determines, as this reviewer suspects , that this pt is not yet clinically stable enough for safe d/c today but that continued eval/monitoring/tx in inpatient hospital setting medically reasonable & necessary to protect pt's health, safety, & medical condition, please document concerns/issues & consider change to Inpt status. Thanks for your help with documentation accuracy/specificity improvement! Naima Schmitz MD [facility] Physician Advisor, Fellow of Hospital Medicine
[2016-08-05] MEDS ORDERED: (PENDING PHARMACY ID) (Multivitamin [Multivitamins] 1 CAP) PO SCH (10:00)
[2016-08-05] MEDS ORDERED: (PENDING PHARMACY ID) (Tiotropium Bromide [Spiriva Respimat] 2 PUFF) IH SCH (10:00)
[2016-08-05] MEDS ORDERED: MULTIVITAMIN TABLET PO SCH (10:00)
--- NOTE | 2016-08-05 14:11 | PDOC DISCHARGE SUMMARY ---
General - Admit/Disc Date/PCP Admission Date/Primary Care Provider: 08/04/16 12:00 JANEEN CARLOS MD Discharge Date: 08/05/16 - Discharge Diagnosis (1) Diverticulitis Is this a current diagnosis for this admission?: Yes (2) COPD (chronic obstructive pulmonary disease) Is this a current diagnosis for this admission?: Yes (3) Anxiety Is this a current diagnosis for this admission?: Yes - Additional Information Resuscitation Status: Do Not Resuscitate Discharge Diet: Regular Discharge Activity: Activity As Tolerated, Balance Activity w/Rest Home Medications: Albuterol Sulfate [Albuterol Sulfate 2.5mg/3 mL] 1 vial IH Q6H 08/04/16 Albuterol Sulfate [Proair HFA Inhalation Aerosol 8.5 gm MDI] 2 puff IH QID 08/04 Fluticasone/Salmeterol [Advair 250-50 Diskus 28 dose] 1 puff IH Q12 08/04/16 Multivitamin [Multivitamins] 1 cap PO DAILY 08/04/16 Olopatadine HCl [Pataday] 1 drop OU DAILY 08/04/16 Tiotropium Paguate [Spiriva Respimat] 2 puff IH QAM 08/04/16 Ciprofloxacin HCl [Cipro 500 mg Tablet] 500 mg PO BID #18 tablet 08/05/16 Metronidazole [Flagyl 500 mg Tablet] 500 mg PO Q6A #36 tablet 08/05/16 Additional Information: 1. Increase oral fluid intake 2. Follow-up final result of stool and blood culture as outpatient with primary care physician History of Present Illness Patient complains of: Abdominal pain History of Present Illness: AXEL NORMAN is a 75 year old female, with history of COPD, came to the emergency room with abdominal pain where she had a CT of the abdomen and pelvis done yesterday showing no acute abnormality or obstruction but with elevated WBC. The patient was wanting to go home and leave the hospital AGAINST MEDICAL ADVICE however she developed diarrhea in the parking lot and therefore came back to the hospital and referred for admission. For details please refer to history and physical examination performed by the admitting physician. Hospital Course Hospital Course: The patient was admitted to telemetry. The patient was hydrated with intravenous fluids. Ciprofloxacin and Flagyl was started for an empiric diagnosis of possible diverticulitis. WBC was monitored and it has significantly improved. Lactic acid level was mildly elevated initially and it has normalized. The patient improved after 24 hours. Patient denies any abdominal pain nausea or vomiting. Patient likewise denies any discomfort with resolution of diarrhea without any abdominal pain. She was tolerating her oral intake. Patient prefers to go home and wants to continue treatment outpatient jacobs. The rest of the hospital stay was unremarkable. Physical Exam Vital Signs: Temp Pulse Resp BP Pulse Ox 98.5 F 103 H 20 124/64 92 08/05/16 11:14 08/05/16 12:05 08/05/16 12:05 08/05/16 11:14 08/05/16 12:05 Intake & Output 08/04/16 08/05/16 08/06/16 06:59 06:59 06:59 Intake Total 640 Balance 640 Weight 44.4 kg General appearance: PRESENT: no acute distress, cooperative, thin Head exam: PRESENT: normocephalic Eye exam: PRESENT: EOMI Mouth exam: PRESENT: moist, neck supple Neck exam: ABSENT: JVD Respiratory exam: PRESENT: clear to auscultation henri. ABSENT: rhonchi, wheezes Cardiovascular exam: PRESENT: RRR GI/Abdominal exam: PRESENT: hyperactive bowel sounds, soft. ABSENT: distended, tenderness Extremities exam: ABSENT: pedal edema Neurological exam: PRESENT: alert, awake, oriented to person, oriented to place , oriented to time, oriented to situation Skin exam: PRESENT: erythema, warm. ABSENT: dry Results Laboratory Results: 08/05/16 06:58 08/05/16 06:58 08/04/16 08/05/16 08/05/16 13:57 06:58 06:58 WBC 11.0 H RBC 4.50 Hgb 13.8 Hct 40.5 MCV 90 MCH 30.8 MCHC 34.2 RDW 13.2 Plt Count 130 L Sodium 132.8 L Potassium 3.9 Chloride 102 Carbon Dioxide 25 Anion Gap 6 BUN 8 Creatinine 0.42 L Est GFR ( Amer) > 60 Est GFR (Non-Af Amer) > 60 Glucose 125 H Lactic Acid 1.5 Calcium 8.5 Qualifiers PATEINT BEING DISCHARGED WITH ANY OF THE FOLLOWING DIAGNOSIS?: No Plan Discharge Plan: Follow-up with primary care physician in one week. Complete antibiotic treatment for diverticulitis for total of 10 days Time Spent: Less than 30 Minutes
[2016-08-05 14:37] VITALS: BP 131/67
[2016-08-05] MEDS ORDERED: METRONIDAZOLE 500 MG TABLET PO SCH (15:00)
== END 2016-08-05 15:03 | disposition home or self-care (01) ==
LOC: ER 07:23 → UNDOADMOB 11:49 → EH 11:49 → 2N 14:29
PROVIDERS: ADMIT Internal Medicine; ATTEND Internal Medicine
PROC: 3E033GC Introduction of Other Therapeutic Substance into Peripheral Vein, Percutaneous Approach (ICD-10-PCS; principal; 2016-08-04)
DX: K57.92 Diverticulitis of intestine, part unspecified, without perforation or abscess without bleeding (principal); J44.9 Chronic obstructive pulmonary disease, unspecified; F41.9 Anxiety disorder, unspecified; Z66 Do not resuscitate; J45.909 Unspecified asthma, uncomplicated; F17.210 Nicotine dependence, cigarettes, uncomplicated; E87.1 Hypo-osmolality and hyponatremia
CPT/HCPCS: 93005; 99285 ×2; 96365; 36415 ×3; 87040; 87045; 89055; 87205; 82553; 82550; 83690; 85025 ×2; 85027; 80048 ×2; 80053 ×2; 81001 ×2; 84484; 87493 ×2; 83605; 74022; 74177; 93010; G0378 ×3; A9270 ×5; J3490 ×4; J7030; J0744 ×2

== ENCOUNTER → 2016-08-20 | Outpatient (CLI) | payer MEDICARE, BC | LOC: OD 10:21 | PROVIDERS: ATTEND Obstetrics & Gynecology | DX: E87.5 Hyperkalemia (principal) | CPT/HCPCS: 36415; 84132 ==

== ENCOUNTER 2016-09-24 07:54 | Day surgery (SDC) | payer MEDICARE, BC ==
--- NOTE | 2016-09-18 14:43 | HISTORY AND PHYSICAL E ---
History and Physical NAME: AXEL NORMAN : 1940 AGE: 75Y ADMITTED: 09/24/2016 ROOM: CHIEF COMPLAINT: Diverticulosis, history of polyps. HISTORY OF PRESENT ILLNESS: Patient known to me since the year 1999 when she did have colonoscopy showing diverticulosis. The patient did have ultrasound of the abdomen, it showed a cyst in the right lobe of the liver. The chest x-ray is stable. Ultrasound shows a liver cyst. The patient did have hepatic and right renal cysts. The patient's chest x-ray is negative. The patient did have a colonoscopy. Severe abdominal pain, CT scan showing complete mechanical distal small bowel obstruction secondary to adhesions, underwent surgery, Dr. Schneider 02/12/2004. The patient presented at this time regarding weight loss. Another colonoscopy 2004. The patient did have colonoscopy 2004 showing small rectosigmoid polyp, sigmoid diverticulosis. Another colonoscopy done 2012 showing the patient did have 4 mm polyp in the transverse colon, 2 mm polyp ascending colon, and these polyps were adenomatous polyps. Patient referred to us by Dr. Wray, and she does have COPD, some emphysema, pneumonia. Patient does have bronchial asthma, emphysema, bronchitis, weight loss, anorexia, pulmonary infiltrate. PAST MEDICAL HISTORY: 1. History of asthma. 2. Benign rectal polyps. PAST SURGICAL HISTORY: 1. . 2. Appendectomy. 3. Bowel obstruction. MEDICATIONS: 1. Serevent. 2. Pulmicort. 3. Tylenol. 4. Inhalers. SOCIAL HISTORY: She quit smoking. PHYSICAL EXAMINATION: GENERAL: Pleasant, alert, oriented, in no acute distress. VITAL SIGNS: Blood pressure 120/70, pulse 80, respirations 18, temperature is 98. Weight 105. Afebrile. HEAD, EYES, EARS, NOSE, THROAT: Normal. ABDOMEN: Soft. NEUROLOGIC: Negative. CONCLUSION: 1. Diverticulosis. 2. Colon polyps. PLAN: The patient presented at this time for colon screening. Colonoscopy, she is to be done with baby gastroscope, very redundant colon, adhesions, severe diverticulosis. We will try her colon with baby gastroscope. DICTATING PHYSICIAN: SENA OSORIO M.D. [id number] PHY#: [id number] ID: [id number] JOB#: [id number] ACCT: [id number] cc:DIANA WRAY M.D., MAHMOUD M.D. >
[~2016-09-24 07:54] MED LIST: EPINEPHRINE INJ 1 MG/10 ML DISP.SYRIN ONE; FLUMAZENIL INJ 0.5 MG/5 ML VIAL IV ONE; GLUCAGON,HUMAN RECOMB 1 MG INJ ONE; GLYCOPYRROLATE INJ 0.4 MG/2 ML VIAL ONE; LIDOCAINE 2% JELLY 30 ML TUBE ONE; NALOXONE HCL INJ/PF 0.4 MG/1 ML SDV ONE; ONDANSETRON HCL INJ/PF 4 MG/2 ML SDV ONE
[2016-09-24] MEDS: MIDAZOLAM 2 MG/2 ML INJ ONE ×2 (08:21→08:25)
[2016-09-24] MEDS: FENTANYL CITRATE INJ/PF 100 MCG/2 ML AMPUL ONE ×3 (08:24→08:35)
[2016-09-24 09:59] VITALS: BP 139/76
[2016-09-24 10:02] LABS: ABSOLUTE EOSINOPHILS # (AUTO) 0.2 10^3/uL (0.0-0.6); ABSOLUTE LYMPHOCYTES (AUTO) 0.9 10^3/uL (0.5-4.7); ABSOLUTE MONOCYTES (AUTO) 0.5 10^3/uL (0.1-1.4); ABSOLUTE NEUT (AUTO) 6.1 10^3/uL (1.7-8.2); BASOPHILS % (AUTO) 0.3 % (0-2); EOSINOPHILS % (AUTO) 2.1 % (0-6); HEMATOCRIT 45.1 % (36.0-47.0); HEMOGLOBIN 15.3 g/dL (12.0-15.5); HGB HCT DIFFERENCE 0.8; LYMPHOCYTES % (AUTO) 11.7 % (13-45); MEAN CORPUSCULAR HGB CONC 33.8 g/dL (32.0-36.0); MEAN CORPUSCULAR VOLUME 92 fl (80-97); MONOCYTES % (AUTO) 6.6 % (3-13); RED BLOOD COUNT 4.92 10^6/uL (3.72-5.28); RED CELL DISTRIBUTION WIDTH 13.6 % (11.5-14.0); SEGMENTED NEUTROPHILS % (AUTO) 79.3 % (42-78); WHITE BLOOD COUNT 7.7 10^3/uL (4.0-10.5)
[2016-09-24 10:25] LABS: ALANINE AMINOTRANSFERASE 35 U/L (9-52); ALBUMIN 3.9 g/dL (3.5-5.0); ALKALINE PHOSPHATASE 73 U/L (38-126); ANION GAP 7 (5-19); ASPARTATE AMINO TRANSFERASE 25 U/L (14-36); BILIRUBIN,DIRECT 0.2 mg/dL (0.0-0.4); BILIRUBIN,TOTAL 0.7 mg/dL (0.2-1.3); BLOOD UREA NITROGEN 9 mg/dL (7-20); CALCIUM 9.4 mg/dL (8.4-10.2); CARBON DIOXIDE 30 mmol/L (22-30); CHLORIDE 101 mmol/L (98-107); CREATININE RESULT 0.56 mg/dL (0.52-1.25); GLUCOSE 152 mg/dL (75-110); POTASSIUM 4.2 mmol/L (3.6-5.0); SODIUM 137.9 mmol/L (137-145); TOTAL PROTEIN 6.1 g/dL (6.3-8.2)
--- NOTE | 2016-09-24 13:54 | OPERATIVE REPORT E ---
Operative Report NAME: AXEL NORMAN : 1940 AGE: 75Y DATE OF SURGERY: 09/24/2016 ROOM: PREOPERATIVE DIAGNOSES: 1. Diverticulosis. 2. Weight loss. 3. History of polyp. POSTOPERATIVE DIAGNOSIS: Severe diverticulosis, sigmoid descending colon. PROCEDURE: Incomplete colonoscopy to the mid transverse colon. SURGEON: SENA OSORIO M.D. ANESTHESIA: Versed 2 and fentanyl 50 TISSUE REMOVED OR ALTERED: None. Patient has severe COPD. PROCEDURE: Rectal exam shows lax anal sphincter. Sigmoid descending colon diverticulosis. Transverse colon diverticulosis. I was unable to go through the ascending colon because of redundancy of the colon and moderate amount of stool in the transverse colon. I did not see any polyps or malignancy. CONCLUSION: Severe diverticulosis, sigmoid descending colon. Inadequate prep. Colonoscopy to the mid transverse colon. PLAN: We will keep the patient on clear liquids. We will try to do a contrast barium enema tomorrow. DICTATING PHYSICIAN: SNEA OSORIO M.D. [id number] PHY#: [id number] ID: [id number] JOB#: [id number] ACCT: [id number] cc:DIANA WRAY M.D., MAHMOUD M.D. >
--- NOTE | 2016-09-24 14:04 | DISCHARGE SUMMARY E ---
Discharge Summary NAME: AXEL NORMAN : 1940 AGE: 75Y ADMITTED: 09/24/2016 DISCHARGED: 09/24/2016 09/24/2016 FINAL DIAGNOSES: 1. Diverticulosis. 2. Incomplete colonoscopy. HISTORY: The patient is a 75-year-old female who presented with weight loss. She does have history of small adenoma polyps and diverticulosis. The patient did have colonoscopies in the past. Her last colonoscopy was in 2012. She did have colonoscopy in 2012 showing diverticulosis. She did have a cyst on her liver. She did have colonoscopy in 2012 showing 2- to 4-mm polyps in the ascending colon. DISCHARGE PLAN: 1. Clear liquids. 2. Air contrast barium enema. 3. Lab studies. 4. Patient to see us in the office after the results of the BE. If the BE shows definite abnormalities, she may need to have another trial of colonoscopy to be done in the OR with anesthesia. FINAL DIAGNOSES: 1. Diverticulosis. 2. Weight loss. 3. COPD. DICTATING PHYSICIAN: SENA OSORIO M.D. [id number] PHY#: [id number] ID: [id number] JOB#: [id number] ACCT: [id number] cc:DIANA WRAY M.D., MAHMOUD M.D. >
== END 2016-09-24 09:55 | disposition home or self-care (01) ==
LOC: END 07:54
PROVIDERS: ATTEND Specialist
PROC: 0DJD8ZZ Inspection of Lower Intestinal Tract, Via Natural or Artificial Opening Endoscopic (ICD-10-PCS; principal; 2016-09-24 08:00)
DX: K57.30 Diverticulosis of large intestine without perforation or abscess without bleeding (principal); Z86.010 Personal history of colon polyps; R97.0 Elevated carcinoembryonic antigen [CEA]; J44.9 Chronic obstructive pulmonary disease, unspecified; R63.0 Anorexia; K76.89 Other specified diseases of liver; Z79.51 Long term (current) use of inhaled steroids; Z87.891 Personal history of nicotine dependence
CPT/HCPCS: 45378; 36415; 82378; 85025; 80053; J2250; J3010; J1610; J0171; J2310; J2405; J3490

== ENCOUNTER → 2016-09-25 | Outpatient (CLI) | payer MEDICARE, BC | LOC: RAD 09:40 | PROVIDERS: ATTEND Specialist | DX: K57.90 Diverticulosis of intestine, part unspecified, without perforation or abscess without bleeding (principal); R63.4 Abnormal weight loss | CPT/HCPCS: 74280 ==

== ENCOUNTER → 2016-10-13 | Outpatient (CLI) | payer MEDICARE, BC | LOC: RAD 12:44 | PROVIDERS: ATTEND Internal Medicine Critical Care Medicine | DX: R91.8 Other nonspecific abnormal finding of lung field (principal); J44.9 Chronic obstructive pulmonary disease, unspecified | CPT/HCPCS: 71250 ==

== ENCOUNTER → 2017-03-13 | Outpatient (CLI) | payer MEDICARE, BC ==
--- NOTE | 2017-03-13 16:49 | WOMENS IMAGING REPORT ---
EXAM DESCRIPTION: 3D SCREENING MAMMO BILAT COMPLETED DATE/TIME: 03/13/2017 1:38 pm REASON FOR STUDY: SCREENING MAMMO Z12.31 ENCNTR SCREEN MAMMOGRAM FOR MALIGNANT NEOPLASM OF TYREL COMPARISON: Multiple since 2008 TECHNIQUE: Standard craniocaudal and mediolateral oblique views of each breast recorded using digita l acquisition and breast tomosynthesis. LIMITATIONS: None. FINDINGS: RIGHT BREAST MASSES: No suspicious masses. CALCIFICATIONS: No new or suspicious calcifications. ARCHITECTURAL DISTORTION: None. DEVELOPING DENSITY: None. ASYMMETRY: None noted. OTHER: No other significant findings. LEFT BREAST MASSES: No suspicious masses. CALCIFICATIONS: No new or suspicious calcifications. ARCHITECTURAL DISTORTION: At the left breast 12 to 1 o'clock position, about 5 cm from the nipple the re is a questionable area of architectural distortion which requires further evaluation with compress ion magnification views, left breast 90 mediolateral view, and left breast ultrasound DEVELOPING DENSITY: None. ASYMMETRY: None noted. OTHER: No other significant findings. Read with the assistance of CAD. .[facility] - R2 Cenova Version 1.3 .[facility] - R2 Cenova Version 1.3 .[facility] - R2 Cenova Version 2.4 .[facility] - R2 Cenova Version 2.4 .[facility] - R2 Lift Manager Version 9.2 IMPRESSION: No tomosynthesis evidence of malignancy right breast. Left breast questionable architectural distortion 12 to 1 o'clock position for which additional diagn ostic compression magnification mammograms, left breast 90 mediolateral view and left breast ultraso und recommended BREAST DENSITY: c. The breasts are heterogeneously dense, which may obscure small masses. BIRAD: 0 Incomplete: Needs Additional Imaging Evaluation and/or prior Mammograms for Comparison. RECOMMENDATION: RECOMMENDED FOLLOW-UP: Additional left breast magnification mammograms and ultrasoun d The patient will be contacted for additional imaging. COMMENT: The patient has been notified of the results by letter per SA requirements. Additional no tification policies are in place for contacting patient with suspicious or incomplete findings. Quality ID #225: The [employer] recommends an annual screening mammogram for women aged 40 years or over. This facility utilizes a reminder system to ensure that all patients receive reminder letters, and/or direct phone calls for appointments. This includes reminders for routine scr eening mammograms, diagnostic mammograms, or other Breast Imaging Interventions when appropriate. Th is patient will be placed in the appropriate reminder system. The [employer] (ACR) has developed recommendations for screening MRI of the breast s in certain patient populations, to be used in conjunction with mammography. Breast MRI surveillanc e may be appropriate for women with more than 20% lifetime risk of developing breast cancer as deter mined by genetic testing, significant family history of the disease, or history of mantle radiation f or Hodgkins Disease. ACR Practice Guidelines 2008. DBT Technology DBT is a type of tomographic mammography. With conventional mammography, overlapping breast tissue ma y make lesions difficult to detect, even with good compression. DBT uses an x-ray tube that rotates a round the breast, taking images at different angles. These images are then combined to create thin sl ices of the breast that the radiologist can view as a 3D reconstruction. The edPULSE unit can perform full-field digital mammograms (2D imaging); or DBT (3D imaging); or both, in a combination mode that quickly performs both the mammogram and the tomosynthesis scan while the breast is still compressed. PQRS 6045F: Fluoroscopic imaging is not utilized for breast tomosynthesis. TECHNICAL DOCUMENTATION: FINDING NUMBER: (1) ASSESSMENT: (1) JOB ID: [id number] [employer]- All Rights Reserved
== END ==
LOC: WI 13:18
PROVIDERS: ATTEND Obstetrics & Gynecology
DX: Z12.31 Encounter for screening mammogram for malignant neoplasm of breast (principal)
CPT/HCPCS: 77063; G0202; 77067

== ENCOUNTER → 2017-03-27 | Outpatient (CLI) | payer MEDICARE, BC ==
--- NOTE | 2017-03-27 15:38 | WOMENS IMAGING REPORT ---
EXAM DESCRIPTION: LEFT DIAGNOSTIC MAMMO W/CAD; U/S BREAST UNILAT LIMITED COMPLETED DATE/TIME: 03/27/2017 9:45 am; 03/27/2017 10:36 am REASON FOR STUDY: CALCIFICATIONS ARCHITECTURAL DISTORTION; R92.2; LT BREAST R92.2 R92.2 INCONCLUSIV E MAMMOGRAM COMPARISON: Multiple since 2008 TECHNIQUE: Cone compression craniocaudal and mediolateral oblique images of the breast recorded with digital acquisition. Additional left breast 90 mediolateral view. Left breast ultrasound was also performed by both myself as well as the technologist. LIMITATIONS: None. FINDINGS: BREAST: Left MASSES: In the left breast 1 o'clock position, a mammographic mass with architectural distortion is p resent worrisome for malignancy. This correlates with a hypoechoic solid mass 13 mm [facility] at [facility]. CALCIFICATIONS: No new or suspicious calcifications. ARCHITECTURAL DISTORTION: None. DEVELOPING DENSITY: None. ASYMMETRY: None noted. OTHER: No other significant findings. Read with the assistance of CAD. .[facility] - R2 Cenova Version 1.3 .[facility] - R2 Cenova Version 1.3 .[facility] - R2 Cenova Version 2.4 .[facility] [place]2 Cenova Version 2.4 .[facility] - R2 [employer] Version 9.2 Left breast ultrasound: Ultrasound was performed by both myself as well as the technologist. In the left breast 12 to 1 o'cl ock position, a 13 mm nodule is present, with lobular ill-defined borders and some acoustic absorptio n. This correlates with the mammographic mass with architectural distortion, and is highly suspiciou s for malignancy. Ultrasound of the left axilla demonstrates no pathologically enlarged lymph nodes. Ultrasound-guided core biopsy, and post biopsy clip placement with two-view mammogram was discussed w ith the patient, and she would like me to perform the procedure at [facility]. IMPRESSION: Malignant appearing 13 mm solid nodule left breast 12 to 1 o'clock position BREAST DENSITY: d. The breasts are extremely dense, which lowers the sensitivity of mammography. BIRAD: 5 Highly suggestive of malignancy. Appropriate action should be taken. RECOMMENDATION: RECOMMENDED FOLLOW UP: Left breast ultrasound-guided core biopsy, post biopsy clip p lacement, with immediate follow-up two-view mammogram. SPECIFIC INTERVENTION/IMAGING/CONSULTATION RECOMMENDED:As above COMMUNICATION:The ultrasound images were reviewed with the patient, ultrasound-guided breast biopsy w as discussed with the patient and she agrees to the procedure. Please schedule at [facility]. COMMENT: The patient has been notified of the results by letter per MQSA requirements. Additional no tification policies are in place for contacting patient with suspicious or incomplete findings. Quality ID #[id number]: The [employer] recommends an annual screening mammogram for women aged 40 years or over. This facility utilizes a reminder system to ensure that all patients receive reminder letters, and/or direct phone calls for appointments. This includes reminders for routine scr eening mammograms, diagnostic mammograms, or other Breast Imaging Interventions when appropriate. Th is patient will be placed in the appropriate reminder system. The [employer] (ACR) has developed recommendations for screening MRI of the breast s in certain patient populations, to be used in conjunction with mammography. Breast MRI surveillanc e may be appropriate for women with more than 20% lifetime risk of developing breast cancer as deter mined by genetic testing, significant family history of the disease, or history of mantle radiation f or Hodgkins Disease. ACR Practice Guidelines 2008. TECHNICAL DOCUMENTATION: FINDING NUMBER: (1) ASSESSMENT: (1) JOB ID: [id number] [employer]- All Rights Reserved
--- NOTE | 2017-03-27 15:38 | WOMENS IMAGING REPORT ---
EXAM DESCRIPTION: LEFT DIAGNOSTIC MAMMO W/CAD; U/S BREAST UNILAT LIMITED COMPLETED DATE/TIME: 03/27/2017 9:45 am; 03/27/2017 10:36 am REASON FOR STUDY: CALCIFICATIONS ARCHITECTURAL DISTORTION; R92.2; LT BREAST R92.2 R92.2 INCONCLUSIV E MAMMOGRAM COMPARISON: Multiple since 2008 TECHNIQUE: Cone compression craniocaudal and mediolateral oblique images of the breast recorded with digital acquisition. Additional left breast 90 mediolateral view. Left breast ultrasound was also performed by both myself as well as the technologist. LIMITATIONS: None. FINDINGS: BREAST: Left MASSES: In the left breast 1 o'clock position, a mammographic mass with architectural distortion is p resent worrisome for malignancy. This correlates with a hypoechoic solid mass [facility]. CALCIFICATIONS: No new or suspicious calcifications. ARCHITECTURAL DISTORTION: None. DEVELOPING DENSITY: None. ASYMMETRY: None noted. OTHER: No other significant findings. Read with the assistance of CAD. .[facility] - R2 Cenova Version 1.3 .[facility] - R2 Cenova Version 1.3 .[facility] - R2 Cenova Version 2.4 .[facility] [place] - R2 Cenova Version 2.4 .[facility] - R2 Industrial [employer] Specialist Version 9.2 Left breast ultrasound: Ultrasound was performed by both myself as well as the technologist. In the left breast 12 to 1 o'cl ock position, a 13 mm nodule is present, with lobular ill-defined borders and some acoustic absorptio n. This correlates with the mammographic mass with architectural distortion, and is highly suspiciou s for malignancy. Ultrasound of the left axilla demonstrates no pathologically enlarged lymph nodes. Ultrasound-guided core biopsy, and post biopsy clip placement with two-view mammogram was discussed w ith the patient, and she would like me to perform the procedure at [facility]. IMPRESSION: Malignant appearing 13 mm solid nodule left breast 12 to 1 o'clock position BREAST DENSITY: d. The breasts are extremely dense, which lowers the sensitivity of mammography. BIRAD: 5 Highly suggestive of malignancy. Appropriate action should be taken. RECOMMENDATION: RECOMMENDED FOLLOW UP: Left breast ultrasound-guided core biopsy, post biopsy clip p lacement, with immediate follow-up two-view mammogram. SPECIFIC INTERVENTION/IMAGING/CONSULTATION RECOMMENDED:As above COMMUNICATION:The ultrasound images were reviewed with the patient, ultrasound-guided breast biopsy w as discussed with the patient and she agrees to the procedure. Please schedule at [facility]. COMMENT: The patient has been notified of the results by letter per MQSA requirements. Additional no tification policies are in place for contacting patient with suspicious or incomplete findings. Quality ID #[id number]: The [employer] recommends an annual screening mammogram for women aged 40 years or over. This facility utilizes a reminder system to ensure that all patients receive reminder letters, and/or direct phone calls for appointments. This includes reminders for routine scr eening mammograms, diagnostic mammograms, or other Breast Imaging Interventions when appropriate. Th is patient will be placed in the appropriate reminder system. The [employer] (ACR) has developed recommendations for screening MRI of the breast s in certain patient populations, to be used in conjunction with mammography. Breast MRI surveillanc e may be appropriate for women with more than 20% lifetime risk of developing breast cancer as deter mined by genetic testing, significant family history of the disease, or history of mantle radiation f or Hodgkins Disease. ACR Practice Guidelines 2008. TECHNICAL DOCUMENTATION: FINDING NUMBER: (1) ASSESSMENT: (1) JOB ID: [id number] [employer]™- All Rights Reserved
== END ==
LOC: WI 11:03
PROVIDERS: ATTEND Obstetrics & Gynecology
DX: R92.2 Inconclusive mammogram (principal)
CPT/HCPCS: 76642; G0206

== ENCOUNTER → 2017-04-17 | Day surgery (SDC) | payer MEDICARE, BC ==
[~2017-04-17] MED LIST changes: -EPINEPHRINE INJ 1 MG/10 ML DISP.SYRIN ONE; -FLUMAZENIL INJ 0.5 MG/5 ML VIAL IV ONE; -GLUCAGON,HUMAN RECOMB 1 MG INJ ONE; -GLYCOPYRROLATE INJ 0.4 MG/2 ML VIAL ONE; +LIDOCAINE 2% INJ (20 MG/ML) 20 ML MDV ONE; -LIDOCAINE 2% JELLY 30 ML TUBE ONE; -NALOXONE HCL INJ/PF 0.4 MG/1 ML SDV ONE; -ONDANSETRON HCL INJ/PF 4 MG/2 ML SDV ONE
--- NOTE | 2017-04-20 18:47 | WOMENS IMAGING REPORT ---
EXAM DESCRIPTION: U/S BREAST BX; LEFT DIG DX MAMMO NO CHG COMPLETED DATE/TIME: 04/17/2017 12:35 pm; 04/17/2017 11:40 am REASON FOR STUDY: LEFT BREAST LUMP; N63.22 S/P US BX LEFT BREAST FOR CLIP PLACEMENT N63.22 UNSPECIF IED LUMP IN THE LEFT BREAST, UPPER INNER QUAD COMPARISON: Previous mammograms and ultrasound 03/27/2017 TECHNIQUE: The procedure was discussed with the patient and the patient agreed to proceed. The patient was scanned and the area of interest in the 12-1 o'clock position 5 cm from the nipple of the left breast was localized. This correlates with the area of concern on prior imaging studies. T his area was targeted for ultrasound-guided core biopsy. After sterile skin prep and 3 mL local lidocaine 1% for skin and deep tissue anesthesia, a 14 gauge c oaxial core biopsy needle was used to obtain several cores of tissue from the lesion. Under ultrasou nd guidance, a ribbon clip was placed in the areas sampled. There were no immediate post-procedure c omplications. MAMMOGRAM: Post-procedure two view mammogram was acquired in the digital mammogram suite. The clip wa s in the expected location. No significant hematoma. 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 Pathology is concordant. LIMITATIONS: None. FINDINGS: Ultrasound guided breast biopsy as described above. POST PROCEDURE MAMMOGRAMS FOR MARKER PLACEMENT: Yes IMPRESSION: ULTRASOUND-GUIDED CORE BIOPSY OF THE LEFT BREAST YIELDS A DIAGNOSIS OF MALIGNANCY BI-RADS 6 Known biopsy-proven malignancy. Appropriate action should be taken. COMMENT: COMMUNICATION: THIS RESULT WAS CALLED TO THE PATIENT'S AND DISCUSSED WITH DR. CARLOS, 04/20/20 17, 1400 HOURS Patient medication list reviewed: Yes- Quality ID# [id number]:Eligible professional attests to documenting i n the medical record they obtained, updated, or reviewed the patient's current medications. TECHNICAL DOCUMENTATION: JOB ID: [id number] [employer]- All Rights Reserved
== END ==
LOC: WI 10:23
PROVIDERS: ATTEND Obstetrics & Gynecology
PROC: 0HBU3ZX Excision of Left Breast, Percutaneous Approach, Diagnostic (ICD-10-PCS; principal; 2017-04-17)
DX: C50.212 Malignant neoplasm of upper-inner quadrant of left female breast (principal); Z17.0 Estrogen receptor positive status [ER+]
CPT/HCPCS: 88342 ×2; 88341 ×2; 88305 ×2; 19083; J3490

== ENCOUNTER 2017-05-27 08:57 | Day surgery (SDC) | payer MEDICARE, BC ==
[2017-05-15 09:51] LABS: HEMATOCRIT 48.9 % (36.0-47.0); HEMOGLOBIN 16.9 g/dL (12.0-15.5); HGB HCT DIFFERENCE 1.8; MEAN CORPUSCULAR HEMOGLOBIN 31.5 pg (27.0-33.4); MEAN CORPUSCULAR HGB CONC 34.5 g/dL (32.0-36.0); MEAN CORPUSCULAR VOLUME 91 fl (80-97); RED BLOOD COUNT 5.35 10^6/uL (3.72-5.28); RED CELL DISTRIBUTION WIDTH 13.5 % (11.5-14.0); WHITE BLOOD COUNT 4.4 10^3/uL (4.0-10.5)
[2017-05-15 10:22] LABS: ANION GAP 10 (5-19); BLOOD UREA NITROGEN 11 mg/dL (7-20); CARBON DIOXIDE 29 mmol/L (22-30); CHLORIDE 98 mmol/L (98-107); CREATININE RESULT 0.57 mg/dL (0.52-1.25); GLUCOSE 96 mg/dL (75-110); POTASSIUM 4.7 mmol/L (3.6-5.0); SODIUM 137.4 mmol/L (137-145)
--- NOTE | 2017-05-15 13:15 | EKG REPORT ---
SEVERITY:- ABNORMAL ECG - SINUS RHYTHM VENTRICULAR PREMATURE COMPLEX AMERICO, CONSIDER BIATRIAL ABNORMALITIES PROBABLE LEFT VENTRICULAR HYPERTROPHY ANTERIOR ST ELEVATION, PROBABLY DUE TO LVH : Confirmed by: Babar Rodriguez MD 15-May-2017 13:14:16
[~2017-05-27 08:57] MED LIST changes: +CIPROFLOXACIN 400 MG/D5W RTU 400 MG/200 ML RTUPB IV PRN; +DEXAMETHASONE SOD PHOSPHATE INJ 4 MG/1 ML VIAL ONE; +LACTATED RINGERS 1000 ML IV PRN; +LIDOCAINE 0.5% INJ-PF (5 MG/ML) 50 ML SDV SUBCUT PRN; -LIDOCAINE 2% INJ (20 MG/ML) 20 ML MDV ONE; +LIDOCAINE 2% INJ-PF (20 MG/ML) 2 ML AMPUL ONE; +LIDOCAINE 4% TRANSPARENT DRESSING 5 GM KIT TP PRN; +ONDANSETRON HCL INJ/PF 4 MG/2 ML SDV ONE; +SUCCINYLCHOLINE CHLORIDE INJ 200 MG/10 ML VIAL ONE
[2017-05-27] MEDS ORDERED: ALBUTEROL SULFATE 0.083% NEB 2.5 MG/3 ML AMPUL NEB ONE (12:16)
[2017-05-27] MEDS ORDERED: RINGERS SOLUTION,LACTATED 1,000 ML IV PRN ×2 (12:23→15:08)
[2017-05-27] MEDS ORDERED: RINGERS SOLUTION,LACTATED 500 ML IV ONE (12:30)
--- NOTE | 2017-05-27 12:43 | RADIOLOGY REPORT (SQ) ---
EXAM DESCRIPTION: CHEST SINGLE VIEW COMPLETED DATE/TIME: 05/27/2017 12:33 pm REASON FOR STUDY: PREOP COMPARISON: CT 10/13/2016 chest x-ray 11/03/2015 EXAM PARAMETERS: NUMBER OF VIEWS: One view. TECHNIQUE: Single frontal radiographic view of the chest acquired. RADIATION DOSE: NA LIMITATIONS: None. FINDINGS: LUNGS AND PLEURA: The lungs are hyperexpanded. There are no infiltrates or effusions. Th ere is no mass. MEDIASTINUM AND HILAR STRUCTURES: No masses. Contour normal. HEART AND VASCULAR STRUCTURES: Heart size normal. There is tortuosity of the descending aorta. BONES: No acute findings. HARDWARE: None in the chest. OTHER: No other significant finding. IMPRESSION: Chronic lung changes with no acute cardiopulmonary disease. TECHNICAL DOCUMENTATION: JOB ID: [id number] [employer]- All Rights Reserved
[2017-05-27] MEDS ORDERED: FENTANYL CITRATE INJ/PF 100 MCG/2 ML AMPUL ONE ×2 (13:04)
[2017-05-27] MEDS ORDERED: MIDAZOLAM 2 MG/2 ML INJ ONE (13:04)
[2017-05-27] MEDS ORDERED: PROPOFOL INJ 200 MG/20 ML VIAL IV ONE (13:05)
[2017-05-27] MEDS ORDERED: MORPHINE SULFATE 10 MG/ML INJ ONE (13:05)
[2017-05-27] MEDS ORDERED: MICROFIBRILLAR COLLAGEN 1 GM PACK ONE (13:19)
[2017-05-27] MEDS ORDERED: METHYLENE BLUE 50 MG/10 ML AMPULE ONE (13:19)
[2017-05-27] MEDS ORDERED: LIDOCAINE 1%/EPINEPHRINE INJ 20 ML VIAL ONE (13:20)
--- NOTE | 2017-05-27 13:35 | RADIOLOGY REPORT (SQ) ---
EXAM DESCRIPTION: NM LYMPHATICS/LYMPH GLANDS COMPLETED DATE/TIME: 05/27/2017 12:09 pm REASON FOR STUDY: lt breast CA C50.912 MALIGNANT NEOPLASM OF UNSPECIFIED SITE OF LEFT FEMAL COMPARISON: ULTRASOUND-GUIDED BREAST BIOPSY 04/17/2017 RADIONUCLIDE AND DOSE: 542 microcuries TC-99m tilmanocept - Lymphoseek. The route of agent administration: Subcutaneous in the skin. TECHNIQUE: The skin of the left breast was prepped in sterile fashion. The radiopharmaceutical was administered in equally divided doses in the periareolar breast. LIMITATIONS: None. FINDINGS: Images demonstrate activity at the injection site. IMPRESSION: ADMINISTRATION OF RADIOPHARMACEUTICAL FOR SENTINEL LYMPH NODE EVALUATION. TECHNICAL DOCUMENTATION: JOB ID: [id number] [employer]- All Rights Reserved
[2017-05-27] MEDS ORDERED: MEPERIDINE HCL/PF INJ 25 MG/1 ML DISP.SYRIN IV PRN (14:33)
[2017-05-27] MEDS ORDERED: MORPHINE SULFATE 10 MG/ML INJ IV PRN ×2 (14:33→15:08)
[2017-05-27] MEDS ORDERED: FENTANYL CITRATE INJ/PF 100 MCG/2 ML AMPUL IV PRN (14:33)
[2017-05-27] MEDS ORDERED: DIPHENHYDRAMINE HCL 50 MG/ML VIAL IV PRN (14:33)
[2017-05-27] MEDS ORDERED: PROMETHAZINE HCL INJ 25 MG/1 ML VIAL IV PRN (14:33)
--- NOTE | 2017-05-27 15:07 | Operative Report ---
Operative Report DATE OF SURGERY: 05/27/17 PREOPERATIVE DIAGNOSIS: Invasive ductal breast carcinoma left breast POSTOPERATIVE DIAGNOSIS: Same OPERATION: 1. [place] lymph node biopsy 2 left axilla. 2. Left mastectomy with drain placement SURGEON: HUY WHITE COLLEGE OR UNIVERSITY REGISTRAR: JASON JULIEN ANESTHESIA: GA TISSUE REMOVED OR ALTERED: [place] lymph nodes left axilla 2; left breast COMPLICATIONS: None ESTIMATED BLOOD LOSS: Minimal INTRAOPERATIVE FINDINGS: See below PROCEDURE: The patient was seen in the preop holding area after undergoing lymphoscintigraphy of the left axilla. Using the neoprobe at bedside, the patient had increased uptake in the low left axilla. Subsequently took the patient to the operating room where she underwent general anesthesia without difficulty. Left arm was abducted, and the left breast exposed prep with alcohol and using a 25-gauge needle approximately 1-1/2 cc of full-strength methylene blue was injected into the left breast intradermally at the 2 o'clock position. Left breast was massaged in the left breast chest wall and axilla wall prepped and draped in sterile fashion. Surgical plan and surgical timeout were conducted. Markings were made on the skin for a standard left mastectomy. Of note the tumor was at the 12 o'clock position of the left breast approximately 5-6 cm from the nipple. Therefore a wide elliptical incision was made over the breast, and superior and inferior skin flaps were raised of the appropriate thickness. Rest was taken directly off the pectoralis major muscle. This was an extremely small breast due to the patient's cachexia. The breast was taken inferiorly off of the serratus anterior muscle and in the tail of Ramirez region was mobilized as well. At this point we conducted the sentinel lymph node biopsy. 2 sentinel lymph nodes were identified the first but not blue low axilla level 1 with an in vivo count of 4380 and an ex vivo count of 2393. A second lymph node likely a combination of 2 lymph nodes was subsequently identified also Level One low axilla with an in vivo count of 1496 and an ex vivo count of 13,000 992. Background counts were negligible and the sentinel node portion of the procedure was felt to be executed. The breast was marked with a short suture in the superior position and a long suture in the lateral position. The specimen was sent for permanent analysis as where the sentinel lymph nodes. We returned to the mastectomy wound, skin flaps elevated a little bit further, large Anthony drain placed in the inferior mammary fold secured to the skin with 2 -0 Prolene suture and the wound approximated with multiple 2-0 and 3-0 Vicryl sutures. Skin was approximated with Dermabond glue. Patient tolerated procedure well, extubated and taken recovery in stable condition., The physician sales operations assistant, Ms. Be, provided assistance during this case by: Assisting , retracting tissue, instillation of local anesthesia and closure of skin incisions.
[2017-05-27] MEDS ORDERED: ONDANSETRON HCL INJ/PF 4 MG/2 ML SDV IV PRN ×3 (15:08→15:19)
[2017-05-27] MEDS ORDERED: KETOROLAC TROMETHAMINE 10 MG TABLET PO PRN (15:09)
[2017-05-27] MEDS ORDERED: OXYCODONE-ACETAMINOPHEN 5-325 MG TABLET PO PRN ×2 (15:13→15:19)
[2017-05-27] MEDS ORDERED: DEXTROSE 5%-LACTATED RINGERS 1,000 ML IV PRN (15:13)
[2017-05-27] MEDS ORDERED: NALOXONE HCL INJ/PF 0.4 MG/1 ML SDV ONE (15:30)
[2017-05-27] MEDS ORDERED: ACETAMINOPHEN 100 ML IV ONE (16:03)
[2017-05-27] MEDS ORDERED: OXYCODONE-ACETAMINOPHEN 5-325 MG TABLET ONE (16:39)
[2017-05-27] MEDS: ACETAMINOPHEN INJ/PF 1000 MG/100 ML SDV IV SCH (18:37)
[2017-05-27] MEDS: DOCUSATE SODIUM 100 MG CAPSULE PO SCH (18:38)
[2017-05-28] MEDS: ACETAMINOPHEN INJ/PF 1000 MG/100 ML SDV IV SCH ×2 (00:02→05:28)
[2017-05-28 09:15] VITALS: BP 117/61
[2017-05-28] MEDS ORDERED: MAG HYDROX/AL HYDROX/SIMETH SUSP 30 ML UDCUP PO ONE (09:30)
--- NOTE | 2017-05-28 10:25 | DISCHARGE SUMMARY E ---
Discharge Summary NAME: AXEL NORMAN : 1940 AGE: 76Y ADMITTED: 05/27/2017 DISCHARGED: 05/28/2017 REASON FOR ADMISSION: Base of left breast carcinoma. SUMMARY OF HOSPITALIZATION: The patient is a 76-year-old white female with a history of invasive ductal carcinoma, left breast. She is brought to ambulatory surgery for same-day surgery. On the afternoon of 05/27/2017, she underwent left mastectomy with sentinel node biopsy and drain placement by Dr. Danielle. She tolerated the procedure well. Postoperatively, she did well, had no complications, and by the following morning, was ready for discharge home. FINAL DIAGNOSIS: Invasive left breast carcinoma status post left mastectomy with sentinel node biopsy, left axilla, and drain placement by Dr. Danielle. DISPOSITION: The patient will be discharged home in the care of her family. Follow up with Dr. Danielle, [facility], in 1 week. Shower, empty drain, and take her preoperative medications as tolerated. Prescription for Percocet provided. DICTATING PHYSICIAN: HUY DANIELLE M.D. [id number] PHY#: [id number] ID: [id number] JOB#: [id number] ACCT: [id number] cc:HUY DANIELLE M.D. >
[2017-05-28] MEDS: DOCUSATE SODIUM 100 MG CAPSULE PO SCH (10:31)
== END 2017-05-28 10:51 | disposition home or self-care (01) ==
LOC: OROUT 08:57 → 5 17:23 → OROUT 05-28 10:51
PROVIDERS: ATTEND Surgery
PROC: 07B60ZX Excision of Left Axillary Lymphatic, Open Approach, Diagnostic (ICD-10-PCS; 2017-05-27)
PROC: 0HTU0ZZ Resection of Left Breast, Open Approach (ICD-10-PCS; principal; 2017-05-27 13:00)
DX: C50.812 Malignant neoplasm of overlapping sites of left female breast (principal); J44.9 Chronic obstructive pulmonary disease, unspecified; Z87.891 Personal history of nicotine dependence; Z88.6 Allergy status to analgesic agent; Z79.51 Long term (current) use of inhaled steroids; Z99.81 Dependence on supplemental oxygen
CPT/HCPCS: 93005; 36415; 85027; 80048; 88342 ×2; 88307 ×2; 71010; 78195; 93010; 94640; 19307; A9520; J2250; J1100; A9270 ×3; J3010; J2270; J2310; J3490 ×2; J0330; J2405; J2704; J0744; J0131 ×2; Q9968; 1610

== ENCOUNTER → 2017-06-29 | Outpatient (CLI) | payer MEDICARE, BC ==
--- NOTE | 2017-06-29 13:29 | WOMENS IMAGING REPORT ---
EXAM DESCRIPTION: BONE DENSITY HIP/SPINE COMPLETED DATE/TIME: 06/29/2017 9:50 am REASON FOR STUDY: AGE-RELATED OSTEOPROSIS; M81.0 M81.0 AGE-RELATED OSTEOPOROSIS W/O CURRENT PATHOLO SAL[facility] COMPARISON: 02/04/2011 TECHNIQUE: Dual-Energy X-ray Absorptiometry (DEXA) of the AP Spine and Hip. LIMITATIONS: None. FINDINGS: LUMBAR SPINE: The bone mineral density (BMD) measured from L1-L4 in the AP projection correlates with a T-score of 0.7, which is normal as defined by the World Health Organization. HIP: The bone mineral density (BMD) measured in the left hip correlates with a T-score of -1.8, previously -1.6, which is osteopenia as defined by the World Health Organization. IMPRESSION: 1. LUMBAR SPINE: NORMAL. 2. HIP: OSTEOPENIA. COMMENT: The World Health Organization defines low BMD as follows: T-score: Normal: Greater than -1.0 Osteopenia: Between -1.0 and -2.5 Osteoporosis: Less than -2.5 without fractures Established osteoporosis: Less than -2.5 with fractures In general, you may wish to consider: Diagnosis Treatment Follow-up DEXA Normal BMD Prevention 2-3 years Osteopenia Prevention/Therapy 1-2 years Osteoporosis Therapy Yearly TECHNICAL DOCUMENTATION: JOB ID: [id number]- All Rights Reserved
== END ==
LOC: WI 09:31
PROVIDERS: ATTEND Internal Medicine Hematology & Oncology
DX: M81.0 Age-related osteoporosis without current pathological fracture (principal)
CPT/HCPCS: 77080

== ENCOUNTER 2017-10-23 07:44 | Inpatient (IN) | payer MEDICARE, BC ==
[2017-10-23 08:13] LABS: ABSOLUTE LYMPHOCYTES (AUTO) 1.7 10^3/uL (0.5-4.7); ABSOLUTE MONOCYTES (AUTO) 0.6 10^3/uL (0.1-1.4); ABSOLUTE NEUT (AUTO) 3.7 10^3/uL (1.7-8.2); BASOPHILS % (AUTO) 0.2 % (0-2); EOSINOPHILS % (AUTO) 0.8 % (0-6); HEMATOCRIT 46.1 % (36.0-47.0); HEMOGLOBIN 15.8 g/dL (12.0-15.5); MEAN CORPUSCULAR HEMOGLOBIN 31.1 pg (27.0-33.4); MEAN CORPUSCULAR HGB CONC 34.3 g/dL (32.0-36.0); MEAN CORPUSCULAR VOLUME 91 fl (80-97); MONOCYTES % (AUTO) 9.8 % (3-13); PLATELET COUNT 220 10^3/uL (150-450); RED BLOOD COUNT 5.08 10^6/uL (3.72-5.28); RED CELL DISTRIBUTION WIDTH 13.9 % (11.5-14.0); SEGMENTED NEUTROPHILS % (AUTO) 61.2 % (42-78); TOTAL CELLS COUNTED % (AUTO) 100 %
--- NOTE | 2017-10-23 08:18 | ER Document Report ---
ED General - General Stated Complaint: DIFFICULTY BREATHING Time Seen by Provider: 10/23/17 08:02 TRAVEL OUTSIDE OF THE [place] IN LAST 30 DAYS: No - HPI Notes: Patient is a 76-year-old female with a history of COPD, not on oxygen at home, and breast cancer in remission who presents to the ED complaining of shortness of breath and trouble breathing that began about 4 hours ago. Patient was evaluated in September and was found to have a pneumothorax on her right lung and chest tube was placed at that time. Patient states that she has otherwise been eating and drinking without difficulties. She has been urinating normally and having normal bowel movements. She denies any other recent illness. She does not have any leg pains, hormone use, recent prolonged distance travel, recent immobilization, previous DVT/PE. She has no other significant cardiac history. Denies any headache, fever, neck pain, URI, sore throat, chest pain, palpitations, syncope, cough, abdominal pain, nausea/vomiting/diarrhea, urinary retention, dysuria, hematuria, or rash. - Related Data Allergies/Adverse Reactions: ibuprofen [Ibuprofen] Allergy (Verified 05/27/17 09:20) ITCHING naproxen sodium [From Aleve] Allergy (Verified 05/27/17 09:20) ITCHING, PASSES OUT, SHOCK Penicillins Allergy (Verified 05/27/17 09:20) Hives theophylline anhydrous [From Theophyl] Allergy (Verified 05/27/17 09:20) Hives adhesive tape [Adhesive Tape] Adverse Reaction (Mild, Verified 05/27/17 09:20) rash, tears skin Past Medical History - Social History Smoking Status: Current Every Day Smoker Family History: Reviewed & Not Pertinent - Past Medical History Cardiac Medical History: Denies: Hx Coronary Artery Disease, Hx Heart Attack, Hx Hypertension Pulmonary Medical History: Reports: Hx Asthma, Hx COPD, Hx Pneumonia - 2009 Denies: Hx Bronchitis Neurological Medical History: Denies: Hx Cerebrovascular Accident, Hx Seizures Renal/ Medical History: Denies: Hx Peritoneal Dialysis GI Medical History: Reports: Hx Diverticulitis Musculoskeltal Medical History: Reports Hx Arthritis Psychiatric Medical History: Denies: Hx Depression Past Surgical History: Reports: Hx Appendectomy, Hx Bowel Surgery, Hx Mastectomy , Hx Tubal Ligation. Denies: Hx Hysterectomy - Immunizations Hx Diphtheria, Pertussis, Tetanus Vaccination: Yes Hx Pneumococcal Vaccination: 06/15/10 Review of Systems - Review of Systems -: Yes All other systems reviewed and negative Physical Exam - Vital signs Vitals: Resp BP Pulse Ox 24 H 166/107 H 96 10/23/17 07:55 10/23/17 07:55 10/23/17 07:55 - Notes Notes: PHYSICAL EXAMINATION: GENERAL: Well-appearing, well-nourished and in mild-moderate respiratory distress. HEAD: Atraumatic, normocephalic. EYES: Pupils equal round and reactive to light, extraocular movements intact, sclera anicteric, conjunctiva are normal. ENT: Nares patent and without discharge. oropharynx clear without exudates. No tonsilar hypertrophy or erythema. Moist mucous membranes. NECK: Normal range of motion, supple without lymphadenopathy LUNGS: dec breath sounds b/l more so on the right. using accessory muscles. HEART: Regular rate and rhythm without murmurs, rubs, gallops. ABDOMEN: Soft, nontender, nondistended abdomen. No guarding, no rebound. No masses appreciated. Normal bowel sounds present. No CVA tenderness bilaterally. Musculoskeletal: FROM to passive/active. Strength 5+/5. Denise neg b/l. Extremities: No cyanosis, clubbing, or edema b/l. Peripheral pulses 2+. Capillary refill less than 3 seconds. NEUROLOGICAL: Normal speech, normal gait. Normal sensory, motor exams PSYCH: Normal mood, normal affect. SKIN: Warm, Dry, normal turgor, no rashes or lesions noted. Course - Re-evaluation Re-evalutation: 10/23/17 08:17 EMS arrived on scene and provided her with Solu-Medrol, 2 breathing treatments, and 2 g of magnesium. She was originally not going to come to the hospital, but when they ambulated her her oxygen saturation dropped and she started feeling symptoms again so they brought her in for evaluation. Patient is currently 97% on 4 L nasal cannula and HR of 105. RR 20. 10/23/17 09:30 Spont Pneumo on CXR Consulted with general soler who will come place a chest tube Pt moved to Trauma 1 10/23/17 10:56 Dr. Ortiz placed chest tube. O2 now 99% on 4L NC RR 17, HR [address] Ventura accepted admit. - Vital Signs Vital signs: Temp Pulse Resp BP Pulse Ox 24 H 152/91 H 97 10/23/17 09:45 10/23/17 09:45 10/23/17 09:45 - Laboratory Result Diagrams: 10/23/17 08:02 10/23/17 08:02 Laboratory results interpreted by me: 10/23/17 10/23/17 08:02 08:02 Hgb 15.8 H Creatinine 0.46 L Glucose 128 H Discharge - Discharge Clinical Impression: Spontaneous pneumothorax Condition: Fair Disposition: ADMITTED INPATIENT Admitting Provider: Hospitalist - Dr. Ventura Unit Admitted: [facility]
[2017-10-23 08:38] LABS: ALANINE AMINOTRANSFERASE 31 U/L (9-52); ALKALINE PHOSPHATASE 74 U/L (38-126); ANION GAP 10 (5-19); ASPARTATE AMINO TRANSFERASE 26 U/L (14-36); BILIRUBIN,DIRECT 0.3 mg/dL (0.0-0.4); BILIRUBIN,TOTAL 0.6 mg/dL (0.2-1.3); BLOOD UREA NITROGEN 9 mg/dL (7-20); CALCIUM 9.1 mg/dL (8.4-10.2); CARBON DIOXIDE 28 mmol/L (22-30); CHLORIDE 102 mmol/L (98-107); CREATINE KINASE 107 U/L (30-135); GLUCOSE 128 mg/dL (75-110); POTASSIUM 4.3 mmol/L (3.6-5.0); SODIUM 139.5 mmol/L (137-145); TOTAL PROTEIN 6.4 g/dL (6.3-8.2)
--- NOTE | 2017-10-23 08:45 | RADIOLOGY REPORT (SQ) ---
EXAM DESCRIPTION: CHEST SINGLE VIEW COMPLETED DATE/TIME: 10/23/2017 8:17 am REASON FOR STUDY: dyspnea COMPARISON: 09/23/2017 EXAM PARAMETERS: NUMBER OF VIEWS: One view. TECHNIQUE: Single frontal radiographic view of the chest acquired. RADIATION DOSE: NA LIMITATIONS: None. FINDINGS: LUNGS AND PLEURA: Right pneumothorax estimated 50%. MEDIASTINUM AND HILAR STRUCTURES: No mediastinal shift. HEART AND VASCULAR STRUCTURES: Heart normal in size. Normal vasculature. BONES: No acute findings. HARDWARE: None in the chest. OTHER: No other significant finding. IMPRESSION: Spontaneous right pneumothorax. TECHNICAL DOCUMENTATION: JOB ID: [id number] [employer]- All Rights Reserved Reading location - IP/workstation name: Unknown
[2017-10-23 08:54] LABS: CREATINE KINASE MB 2.58 ng/mL (<4.55); TROPONIN I < 0.012 ng/mL
[2017-10-23] MEDS ORDERED: FENTANYL CITRATE INJ/PF 100 MCG/2 ML AMPUL IV ONE (10:03)
[2017-10-23] MEDS ORDERED: MIDAZOLAM 2 MG/2 ML INJ IV ONE (10:03)
[2017-10-23] MEDS ORDERED: LIDOCAINE 1% INJ-PF (10 MG/ML) 30 ML SDV ONE (10:10)
[2017-10-23] MEDS ORDERED: ALBUTEROL SULFATE 0.083% NEB 2.5 MG/3 ML AMPUL NEB PRN (13:32)
[2017-10-23] MEDS ORDERED: OLOPATADINE HCL 0.1% OPH SOLN 5 ML OU PRN (13:32)
[2017-10-23] MEDS ORDERED: MORPHINE SULFATE 10 MG/ML INJ ONE (13:42)
[2017-10-23] MEDS: MORPHINE SULFATE 10 MG/ML INJ IV PRN ×3 (13:43→23:21)
--- NOTE | 2017-10-23 13:44 | EKG REPORT ---
SEVERITY:- ABNORMAL ECG - SINUS TACHYCARDIA BIATRIAL ABNORMALITIES BORDERLINE RIGHT AXIS DEVIATION CONSIDER LEFT VENTRICULAR HYPERTROPHY : Confirmed by: Babar Rodirguez MD 23-Oct-2017 13:43:26
[2017-10-23] MEDS ORDERED: ACETAMINOPHEN 325 MG TABLET PO PRN (14:54)
--- NOTE | 2017-10-23 15:26 | PDOC H&P ---
History of Present Illness Admission Date/PCP: 10/23/17 11:17 JANEEN CARLOS MD Patient complains of: Short of breath History of Present Illness: AXEL NORMAN is a 76 year old female with a history of spontaneous pneumothorax discharged 09/23. Apparently she came into the ER short of breath and was found to have a pneumothorax. A chest tube was placed by surgery and they have written orders for management. We were asked to admit for her medical issues. When I saw her she was sedate and unable to provide any history. What history I have comes from her and the chart. Past Medical History Cardiac Medical History: Denies: Coronary Artery Disease, Myocardial Infarction, Hypertension Pulmonary Medical History: Reports: Asthma, Chronic Obstructive Pulmonary Disease (COPD), Pneumonia - 2010, Other - Recent pneumothorax with chest tube Denies: Bronchitis Neurological Medical History: Denies: Seizures GI Medical History: Reports: Diverticulitis Musculoskeltal Medical History: Reports: Arthritis Psychiatric Medical History: Denies: Depression Hematology: Denies: Anemia, Sickle Cell Disease Past Surgical History Past Surgical History: Reports: Appendectomy, Mastectomy, Tubal Ligation Denies: Amputation, Hysterectomy Social History Information Source: Relative, [facility] Lives with: Family Smoking Status: Current Every Day Smoker Frequency of Alcohol Use: Occasional Hx Recreational Drug Use: No Drugs: None Hx Prescription Drug Abuse: No - Advance Directive Resuscitation Status: Full Code Surrogate healthcare decision maker:: Diego Family History Family History: CAD - Other, Malignancy - Sister with breast cancer Parental Family History Reviewed: Yes Children Family History Reviewed: No Sibling(s) Family History Reviewed.: Yes Medication/Allergy Home Medications: Albuterol Sulfate [Proair HFA] 1 puff IH Q4HP PRN 09/21/17 Albuterol Sulfate [Ventolin 0.083% Neb 2.5 mg/3 mL Ampul] 3 ml NEB RTQ4HP PRN Anastrozole [Arimidex 1 mg Tablet] 1 mg PO DAILY 09/21/17 Calcium Carbonate [Calcium] 600 mg PO DAILY 09/21/17 Cholecalciferol (Vitamin D3) [Vitamin D3 400 Unit Tablet] 400 unit PO DAILY 03/02 Denosumab [Prolia 60 mg/ml Syr 1 ml] 60 mg PO .[id number] 09/21/17 Fluticasone/Salmeterol [Advair 250-50 Diskus 28 dose] 1 puff IH Q12 09/21/17 Montelukast Sodium [Singulair 10 mg Tablet] 10 mg PO QPM 09/21/17 Multivitamin [Multiple Vitamins] 1 tab PO DAILY 09/21/17 Olopatadine HCl [Patanol] 1 drop OU Q12HP PRN 09/21/17 Tiotropium [place] [Spiriva Respimat] 2 puff IH QAM 09/21/17 Allergies/Adverse Reactions: ibuprofen [Ibuprofen] Allergy (Verified 05/27/17 09:20) ITCHING naproxen sodium [From Aleve] Allergy (Verified 05/27/17 09:20) ITCHING, PASSES OUT, SHOCK Penicillins Allergy (Verified 05/27/17 09:20) Hives theophylline anhydrous [From Theophyl] Allergy (Verified 05/27/17 09:20) Hives adhesive tape [Adhesive Tape] Adverse Reaction (Mild, Verified 05/27/17 09:20) rash, tears skin Review of Systems ROS unobtainable: Due to mental status Physical Exam Vital Signs: Temp Pulse Resp BP Pulse Ox 97 18 110/75 98 10/23/17 14:10 10/23/17 14:10 10/23/17 11:03 10/23/17 14:10 Intake & Output 10/22/17 10/23/17 10/24/17 05:59 05:59 05:59 Weight 93 lb 4.089 oz General appearance: PRESENT: no acute distress, other - Sedate, cachectic Respiratory exam: PRESENT: clear to auscultation henri, decreased breath sounds, prolonged expiratory phas Cardiovascular exam: PRESENT: RRR GI/Abdominal exam: PRESENT: soft Extremities exam: ABSENT: other - No edema Neurological exam: PRESENT: other - Moves all 4 extremities Psychiatric exam: PRESENT: other - Sedate Skin exam: PRESENT: warm Results Impressions: Chest X-Ray 10/23/17 08:04 IMPRESSION: Spontaneous right pneumothorax. Assessment & Plan - Diagnosis (1) Spontaneous pneumothorax Is this a current diagnosis for this admission?: Yes Plan: Chest tube management per surgery. I will consult pulmonology for an opinion on whether she needs to be pleurodesed (2) Acute respiratory failure with hypoxia Is this a current diagnosis for this admission?: Yes (3) COPD (chronic obstructive pulmonary disease) Qualifiers: COPD type: chronic bronchitis Chronic bronchitis type: unspecified Qualified Code(s): J42 - Unspecified chronic bronchitis Is this a current diagnosis for this admission?: Yes Plan: Continue nebulizers and pulmonary toilet. I do not see any need for steroids or antibiotics now. (4) Anxiety Is this a current diagnosis for this admission?: Yes Plan: Symptomatic treatment as needed (5) Tobacco dependency Is this a current diagnosis for this admission?: Yes Plan: Nicotine replacement (6) Malnutrition related to chronic disease Is this a current diagnosis for this admission?: Yes
[2017-10-23] MEDS: OXYCODONE-ACETAMINOPHEN 5-325 MG TABLET PO PRN (15:31)
--- NOTE | 2017-10-23 15:32 | RADIOLOGY REPORT (SQ) ---
EXAM DESCRIPTION: CHEST SINGLE VIEW COMPLETED DATE/TIME: 10/23/2017 2:55 pm REASON FOR STUDY: s/p chest tube placement for PTX COMPARISON: 10/23/2017. FINDINGS: AP portable upright single-view chest timed approximately 1448 hr. Hyperinflated. Right chest tube has been placed and extends to the apex. The right lung is generall y reinflated with significant pneumothorax no longer identified. Suspect persistent atelectatic lung in the medial right base. IMPRESSION: Status post chest tube placement with re-expansion of the right lung. Some medial right lung base volume loss likely persists. COPD. TECHNICAL DOCUMENTATION: JOB ID: [id number] Reading location - IP/workstation name: [email or web address]
--- NOTE | 2017-10-23 15:52 | PDOC H&P ---
History of Present Illness Admission Date/PCP: 10/23/17 11:17 JANEEN CARLOS MD Patient complains of: Shortness of breath and cough History of Present Illness: AXEL NORMAN is a 76 year old female with a one-day history of worsening shortness of breath and cough. The patient recently underwent tube thoracostomy for spontaneous pneumothorax 1 month ago. The patient reports that her current symptoms feel similar to her previous pneumothorax. She reports shortness of breath, cough, chest pain in her right lateral/posterior chest. She denies fevers or chills. Nothing makes her shortness of breath better. She is unable to talk in full sentences due to her dyspnea. Past Medical History Cardiac Medical History: Denies: Coronary Artery Disease, Myocardial Infarction, Hypertension Pulmonary Medical History: Reports: Asthma, Chronic Obstructive Pulmonary Disease (COPD), Pneumonia - 2009 Denies: Bronchitis Neurological Medical History: Denies: Seizures GI Medical History: Reports: Diverticulitis Musculoskeltal Medical History: Reports: Arthritis Psychiatric Medical History: Denies: Depression Hematology: Denies: Anemia, Sickle Cell Disease Past Surgical History Past Surgical History: Reports: Appendectomy, Mastectomy, Tubal Ligation Denies: Amputation, Hysterectomy Social History Smoking Status: Former Smoker Frequency of Alcohol Use: Occasional Hx Recreational Drug Use: No Drugs: None Hx Prescription Drug Abuse: No Family History Family History: Reviewed & Not Pertinent Parental Family History Reviewed: Yes Children Family History Reviewed: Yes Sibling(s) Family History Reviewed.: Yes Medication/Allergy Home Medications: Albuterol Sulfate [Proair HFA] 1 puff IH Q4HP PRN 09/21/17 Albuterol Sulfate [Ventolin 0.083% Neb 2.5 mg/3 mL Ampul] 3 ml NEB RTQ4HP PRN Anastrozole [Arimidex 1 mg Tablet] 1 mg PO DAILY 09/21/17 Calcium Carbonate [Calcium] 600 mg PO DAILY 09/21/17 Cholecalciferol (Vitamin D3) [Vitamin D3 400 Unit Tablet] 400 unit PO DAILY 03/02 Denosumab [Prolia 60 mg/ml Syr 1 ml] 60 mg PO .[id number] 09/21/17 Fluticasone/Salmeterol [Advair 250-50 Diskus 28 dose] 1 puff IH Q12 09/21/17 Montelukast Sodium [Singulair 10 mg Tablet] 10 mg PO QPM 09/21/17 Multivitamin [Multiple Vitamins] 1 tab PO DAILY 09/21/17 Olopatadine HCl [Patanol] 1 drop OU Q12HP PRN 09/21/17 Tiotropium [place] [Spiriva Respimat] 2 puff IH QAM 09/21/17 Allergies/Adverse Reactions: ibuprofen [Ibuprofen] Allergy (Verified 05/27/17 09:20) ITCHING naproxen sodium [From Aleve] Allergy (Verified 05/27/17 09:20) ITCHING, PASSES OUT, SHOCK Penicillins Allergy (Verified 05/27/17 09:20) Hives theophylline anhydrous [From Theophyl] Allergy (Verified 05/27/17:20) Hives adhesive tape [Adhesive Tape] Adverse Reaction (Mild, Verified 05/27/17 09:20) rash, tears skin Review of Systems Constitutional: ABSENT: chills, fever(s), headache(s) Eyes: ABSENT: visual disturbances Ears: ABSENT: hearing changes Nose, Mouth, and Throat: ABSENT: sore throat Cardiovascular: PRESENT: chest pain, dyspnea on exertion Respiratory: PRESENT: cough, dyspnea. ABSENT: hemoptysis Gastrointestinal: ABSENT: abdominal pain, bloating, dysphagia, heartburn, hematemesis, hematochezia, melena, nausea, vomiting Genitourinary: ABSENT: dysuria Integumentary: ABSENT: lesions, pruritus, rash Neurological: ABSENT: abnormal movements, abnormal speech, confusion, memory loss Psychiatric: ABSENT: anxiety, depression, hallucinations Endocrine: ABSENT: cold intolerance, heat intolerance Hematologic/Lymphatic: ABSENT: easy bleeding, easy bruising, lymphadenopathy Physical Exam Vital Signs: Temp Pulse Resp BP Pulse Ox 97 18 110/75 98 10/23/17 14:10 10/23/17 14:10 10/23/17 11:03 10/23/17 14:10 Intake & Output 10/22/17 10/23/17 10/24/17 06:59 06:59 06:59 Weight 42.3 kg General appearance: PRESENT: mild distress - Respiratory Head exam: PRESENT: atraumatic, normocephalic Eye exam: PRESENT: EOMI, PERRLA. ABSENT: conjunctival injection, scleral icterus Mouth exam: PRESENT: moist, neck supple Teeth exam: ABSENT: poor dentation Neck exam: ABSENT: lymphadenopathy, meningismus, tenderness, thyromegaly, tracheal deviation Respiratory exam: PRESENT: accessory muscle use, decreased breath sounds - Right side, tachypnea Cardiovascular exam: PRESENT: tachycardia Vascular exam: PRESENT: normal capillary refill. ABSENT: pallor GI/Abdominal exam: PRESENT: normal bowel sounds, soft. ABSENT: distended, guarding, hernia, rigid, tenderness Rectal exam: PRESENT: deferred Extremities exam: ABSENT: tenderness Musculoskeletal exam: ABSENT: tenderness Neurological exam: PRESENT: alert, awake, oriented to person, oriented to place , oriented to time Psychiatric exam: PRESENT: anxious - Mildly. ABSENT: depressed Skin exam: ABSENT: cyanosis, erythema, jaundice Results Impressions: Chest X-Ray 10/23/17 08:04 IMPRESSION: Spontaneous right pneumothorax. 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 Last visit, she required tube thoracostomy for resolution. I have again recommended tube thoracostomy to reexpand the lung and cure her tachypnea and tachycardia. If this is successful, it is reasonable to forego surgical intervention. In the event that her pneumothorax does not completely resolve, surgery would be certainly indicated. I have recommended she consider surgery due to the recurrent nature of this pneumothorax. The patient is unsure if she is interested in surgical intervention. I will discuss this possibility again with her tomorrow. I have personally reviewed her initial chest x-ray showing approximately 50% pneumothorax. I have also reviewed her lab work and previous hospital records.
--- NOTE | 2017-10-23 15:57 | Operative Report ---
Nonrecallable Operative Report DATE OF SURGERY: 10/23/17 PREOPERATIVE DIAGNOSIS: Large right-sided pneumothorax POSTOPERATIVE DIAGNOSIS: Same as above OPERATION: Right tube thoracostomy SURGEON: MICHELLE NAJERA ANESTHESIA: Moderate Sedation - With local TISSUE REMOVED OR ALTERED: None COMPLICATIONS: None apparent ESTIMATED BLOOD LOSS: Minimal PROCEDURE: Drains/implants: 24 [place] chest tube to the right side. After informed consent was obtained, the patient was laid in the supine position in the emergency department. 4 mg of Versed and 100 mcg of fentanyl were administered. Moderate sedation was achieved. 1% lidocaine was infiltrated into the chest wall on the right side. This was done in the mid axillary line. Blunt dissection was used to reach a rib at approximately the fourth interspace. A Sultana clamp was used to bluntly enter the chest. A large lee of air was noted. No fluid was found within the chest. A finger sweep was performed noting no loculations. A 24 Swedish chest tube was inserted and directed posteriorly and superiorly. The chest tube was sutured to the chest wall using 0 silk suture 2. A dressing was fashioned, and the procedure was concluded. The chest tube was attached to 20 cm of water suction. All sponge, instrument, and needle counts were correct 2. Condition: Fair.
[2017-10-23] MEDS ORDERED: NICOTINE 21 MG/24 HR PATCH.TD24 TD ONE (16:00)
[2017-10-23] MEDS ORDERED: ENOXAPARIN SODIUM INJ 40 MG/0.4 ML DISP.SYRIN SUBCUT ONE (16:00)
[2017-10-23] MEDS: IPRATROPIUM/ALBUTEROL 0.5-2.5 MG/3 ML AMPUL NEB SCH ×2 (16:24→20:04)
[2017-10-23] MEDS: MONTELUKAST SODIUM 10 MG TABLET PO SCH (18:20)
[2017-10-23] MEDS: IPRATROPIUM/ALBUTEROL 0.5-2.5 MG/3 ML AMPUL NEB PRN (20:05)
[2017-10-23] MEDS: FAMOTIDINE 20 MG TABLET PO SCH (21:55)
[2017-10-23] MEDS ORDERED: FLUTICASONE/SALMETEROL DISKUS 250-50 MCG/DOSE IH ONE (22:50)
[2017-10-23] MEDS: FLUTICASONE/SALMETEROL DISKUS 250-50 MCG/DOSE IH SCH (23:07)
[2017-10-24] MEDS: OXYCODONE-ACETAMINOPHEN 5-325 MG TABLET PO PRN ×4 (01:43→22:38)
[2017-10-24] MEDS: MORPHINE SULFATE 10 MG/ML INJ IV PRN ×3 (03:33→17:04)
[2017-10-24] MEDS ORDERED: (PENDING PHARMACY ID) (Tiotropium Bromide [Spiriva Respimat] 2 PUFF) IH SCH (08:00)
--- NOTE | 2017-10-24 08:10 | RADIOLOGY REPORT (SQ) ---
EXAM DESCRIPTION: CHEST SINGLE VIEW COMPLETED DATE/TIME: 10/24/2017 7:41 am REASON FOR STUDY: ptx COMPARISON: 10/23/2017 EXAM PARAMETERS: NUMBER OF VIEWS: One view. TECHNIQUE: Single frontal radiographic view of the chest acquired. RADIATION DOSE: NA LIMITATIONS: No pneumothorax. Indwelling right chest tube. Left lung clear. FINDINGS: LUNGS AND PLEURA: No opacities, masses or pneumothorax. No pleural effusion. MEDIASTINUM AND HILAR STRUCTURES: No masses. Contour normal. HEART AND VASCULAR STRUCTURES: Heart normal in size. Normal vasculature. BONES: No acute findings. HARDWARE: None in the chest. OTHER: No other significant finding. IMPRESSION: No recurrent right pneumothorax status post right chest tube placement. TECHNICAL DOCUMENTATION: JOB ID: [id number] [employer]- All Rights Reserved Reading location - IP/workstation name: [email or web address]
[2017-10-24] MEDS: IPRATROPIUM/ALBUTEROL 0.5-2.5 MG/3 ML AMPUL NEB SCH ×4 (08:17→19:49)
[2017-10-24] MEDS: TIOTROPIUM BROMIDE DPI 5 CAP/KIT (18 MCG/CAP) IH SCH (08:18)
[2017-10-24] MEDS ORDERED: (PENDING PHARMACY ID) (Calcium Carbonate [Calcium] 600 MG) PO SCH (10:00)
[2017-10-24] MEDS: NICOTINE 21 MG/24 HR PATCH.TD24 TD SCH (10:01)
[2017-10-24] MEDS: FLUTICASONE/SALMETEROL DISKUS 250-50 MCG/DOSE IH SCH ×2 (10:01→22:33)
[2017-10-24] MEDS: ANASTROZOLE 1 MG TABLET PO SCH (10:02)
[2017-10-24] MEDS: FAMOTIDINE 20 MG TABLET PO SCH ×2 (10:02→22:33)
[2017-10-24] MEDS: ENOXAPARIN SODIUM INJ 40 MG/0.4 ML DISP.SYRIN SUBCUT SCH (10:03)
[2017-10-24] MEDS: CHOLECALCIFEROL (D3) 400 UNIT TABLET PO SCH (10:03)
[2017-10-24] MEDS: MULTIVITAMIN TABLET PO SCH (10:04)
[2017-10-24] MEDS: CALCIUM CARBONATE 500 MG TABLET PO SCH (10:04)
[2017-10-24] MEDS ORDERED: LORAZEPAM 1 MG TABLET PO PRN (11:11)
--- NOTE | 2017-10-24 11:40 | PDOC PROGRESS REPORT ---
Subjective Progress Note for:: 10/24/17 Subjective:: She would like something for her nerves and to help her sleep. States she needs to be on a normal salt diet. Reason For Visit: PNEUMOTHORAX Physical Exam Vital Signs: Temp Pulse Resp BP Pulse Ox 97.9 F 90 18 120/87 H 97 10/24/17 07:43 10/24/17 08:19 10/24/17 08:19 10/24/17 07:43 10/24/17 08:19 Intake & Output 10/23/17 10/24/17 10/25/17 05:59 05:59 05:59 Intake Total 708 10 Balance 708 10 Weight 100 lb 4.965 oz General appearance: PRESENT: no acute distress, other - Cachectic Respiratory exam: PRESENT: clear to auscultation henri, decreased breath sounds, prolonged expiratory phas Cardiovascular exam: PRESENT: RRR GI/Abdominal exam: PRESENT: soft Extremities exam: ABSENT: other - No edema Neurological exam: PRESENT: alert Psychiatric exam: PRESENT: anxious, appropriate affect Skin exam: PRESENT: warm Results Impressions: Chest X-Ray 10/24/17 06:00 IMPRESSION: No recurrent right pneumothorax status post right chest tube placement. Assessment & Plan - Diagnosis (1) Spontaneous pneumothorax Is this a current diagnosis for this admission?: Yes Plan: Chest tube management per surgery. I will consult pulmonology for an opinion on whether she needs to be pleurodesed (2) Acute respiratory failure with hypoxia Is this a current diagnosis for this admission?: Yes (3) COPD (chronic obstructive pulmonary disease) Qualifiers: COPD type: chronic bronchitis Chronic bronchitis type: unspecified Qualified Code(s): J42 - Unspecified chronic bronchitis Is this a current diagnosis for this admission?: Yes Plan: Still smokes. Continue nebulizers and pulmonary toilet. I do not see any need for steroids or antibiotics now. (4) Anxiety Is this a current diagnosis for this admission?: Yes Plan: After discussion with the patient and her I will start some Effexor and continue symptomatic treatment as needed (5) Tobacco dependency Is this a current diagnosis for this admission?: Yes Plan: Nicotine replacement (6) Malnutrition related to chronic disease Is this a current diagnosis for this admission?: Yes Plan: Pulmonary cachexia. Unable to consume enough calories to keep up with her metabolic demand.
[2017-10-24] MEDS ORDERED: VENLAFAXINE HCL 75 MG CAP.SR.24H PO ONE (12:00)
--- NOTE | 2017-10-24 12:39 | PDOC PROGRESS REPORT ---
Subjective Progress Note for:: 10/24/17 Subjective:: This is a 76-year-old female with a recurrent right spontaneous pneumothorax. The patient underwent chest tube insertion yesterday. The patient does complain of pain in the right chest, due to the tube. Her breathing is nonlabored. She does not feel short of breath. She denies fevers, chills, fatigue, malaise, orthostasis, dizziness, blurry vision. Reason For Visit: PNEUMOTHORAX Physical Exam Vital Signs: Temp Pulse Resp BP Pulse Ox 97.9 F 93 18 120/87 H 94 10/24/17 07:43 10/24/17 11:57 10/24/17 11:57 10/24/17 07:43 10/24/17 11:57 Intake & Output 10/23/17 10/24/17 10/25/17 06:59 06:59 06:59 Intake Total 718 400 Output Total 1 Balance 718 399 Weight 45.5 kg General appearance: PRESENT: no acute distress Head exam: PRESENT: atraumatic, normocephalic Eye exam: PRESENT: EOMI, PERRLA. ABSENT: conjunctival injection, scleral icterus Teeth exam: ABSENT: poor dentation Neck exam: ABSENT: lymphadenopathy, meningismus, tenderness, thyromegaly, tracheal deviation Respiratory exam: PRESENT: crackles, other - Right tube thoracostomy in place to 20 cm of water suction. Small air leak present. Minimal serosanguinous drainage. Pulses: PRESENT: normal radial pulses Vascular exam: PRESENT: normal capillary refill. ABSENT: pallor GI/Abdominal exam: PRESENT: normal bowel sounds, soft. ABSENT: distended, hernia, tenderness Rectal exam: PRESENT: deferred Extremities exam: ABSENT: joint swelling Musculoskeletal exam: ABSENT: tenderness Neurological exam: PRESENT: alert, awake, oriented to person, oriented to place , oriented to time, oriented to situation, CN II-XII grossly intact. ABSENT: motor sensory deficit Psychiatric exam: ABSENT: agitated, anxious, depressed Skin exam: ABSENT: cyanosis, erythema, jaundice Results Impressions: Chest X-Ray 10/24/17 06:00 IMPRESSION: No recurrent right pneumothorax status post right chest tube placement. Assessment & Plan - Diagnosis (1) Spontaneous pneumothorax Is this a current diagnosis for this admission?: Yes - Plan Summary Plan Summary: This is a 76-year-old female with a recurrent spontaneous pneumothorax. She is status post right tube thoracostomy. I have reviewed her chest x-ray images personally. Her lung has reexpanded well. Her breathing is nonlabored. I have again discussed the possibility of surgical therapy for her recurrent spontaneous pneumothorax (in the form of VATS). The patient is still reluctant to undergo the procedure. I have offered her transfer to [facility] to see a thoracic surgeon, but she wishes to think on this matter further. There is a small air leak today in the Pleur-evac, although it is much improved from yesterday. Continue suction to the chest tube today. I will reevaluate for her air leak again tomorrow. Will follow.
[2017-10-24] MEDS: MONTELUKAST SODIUM 10 MG TABLET PO SCH (17:04)
[2017-10-25] MEDS: ONDANSETRON HCL INJ/PF 4 MG/2 ML SDV IV PRN ×2 (03:51→10:31)
[2017-10-25] MEDS: MORPHINE SULFATE 10 MG/ML INJ IV PRN (05:24)
[2017-10-25] MEDS: OXYCODONE-ACETAMINOPHEN 5-325 MG TABLET PO PRN ×3 (06:30→21:57)
[2017-10-25] MEDS: IPRATROPIUM/ALBUTEROL 0.5-2.5 MG/3 ML AMPUL NEB SCH ×4 (08:10→20:04)
--- NOTE | 2017-10-25 08:31 | RADIOLOGY REPORT (SQ) ---
EXAM DESCRIPTION: CHEST SINGLE VIEW COMPLETED DATE/TIME: 10/25/2017 8:18 am REASON FOR STUDY: ptx COMPARISON: 10/24/2017 EXAM PARAMETERS: NUMBER OF VIEWS: One view. TECHNIQUE: Single frontal radiographic view of the chest acquired. RADIATION DOSE: NA LIMITATIONS: None. FINDINGS: LUNGS AND PLEURA: No new opacities, masses or pneumothorax. No pleural effusion. MEDIASTINUM AND HILAR STRUCTURES: Stable in size and contour. HEART AND VASCULAR STRUCTURES: Heart stable in size. Normal vasculature. BONES: No acute findings. HARDWARE: Right-sided chest tube. OTHER: No other significant finding. IMPRESSION: STABLE APPEARANCE OF THE CHEST WITH RIGHT-SIDED CHEST TUBE IN PLACE. NO DEFINITE RESIDU AL/ RECURRENT PNEUMOTHORAX. TECHNICAL DOCUMENTATION: JOB ID: [id number] [employer]- All Rights Reserved Reading location - IP/workstation name: [email or web address]
[2017-10-25] MEDS ORDERED: VENLAFAXINE HCL 75 MG CAP.SR.24H PO SCH ×2 (10:00→13:03)
[2017-10-25] MEDS: CHOLECALCIFEROL (D3) 400 UNIT TABLET PO SCH (10:30)
[2017-10-25] MEDS: MULTIVITAMIN TABLET PO SCH (10:31)
[2017-10-25] MEDS: CALCIUM CARBONATE 500 MG TABLET PO SCH (10:31)
[2017-10-25] MEDS: FAMOTIDINE 20 MG TABLET PO SCH ×2 (10:31→21:58)
[2017-10-25] MEDS: TIOTROPIUM BROMIDE DPI 5 CAP/KIT (18 MCG/CAP) IH SCH (10:32)
[2017-10-25] MEDS: ANASTROZOLE 1 MG TABLET PO SCH (10:32)
[2017-10-25] MEDS: FLUTICASONE/SALMETEROL DISKUS 250-50 MCG/DOSE IH SCH ×2 (10:39→21:58)
[2017-10-25] MEDS: NICOTINE 21 MG/24 HR PATCH.TD24 TD SCH (10:51)
[2017-10-25] MEDS: ENOXAPARIN SODIUM INJ 40 MG/0.4 ML DISP.SYRIN SUBCUT SCH (10:51)
--- NOTE | 2017-10-25 13:08 | PDOC PROGRESS REPORT ---
Subjective Progress Note for:: 10/25/17 Subjective:: Having considerable pain today at the chest tube site. Has had some nausea and vomiting possibly related to pain medication, though unclear. Reason For Visit: PNEUMOTHORAX Physical Exam Vital Signs: Temp Pulse Resp BP Pulse Ox 97.8 F 99 12 132/81 H 99 10/25/17 11:41 10/25/17 11:41 10/25/17 11:41 10/25/17 11:41 10/25/17 11:41 Intake & Output 10/24/17 10/25/17 10/26/17 05:59 05:59 05:59 Intake Total 708 1362 10 Output Total 1 25 Balance 708 1361 -15 Weight 100 lb 4.965 oz 96 lb 12.527 oz General appearance: PRESENT: mild distress, other - Cachectic Respiratory exam: PRESENT: clear to auscultation henri, other - Chest tube in place Cardiovascular exam: PRESENT: RRR GI/Abdominal exam: PRESENT: soft Extremities exam: ABSENT: +1 edema Neurological exam: PRESENT: awake Psychiatric exam: PRESENT: appropriate affect Skin exam: PRESENT: warm Results Impressions: Chest X-Ray 10/25/17 06:00 IMPRESSION: STABLE APPEARANCE OF THE CHEST WITH RIGHT-SIDED CHEST TUBE IN PLACE. NO DEFINITE RESIDUAL/ RECURRENT PNEUMOTHORAX. Assessment & Plan - Diagnosis (1) Spontaneous pneumothorax Is this a current diagnosis for this admission?: Yes Plan: Chest tube management per surgery. (2) Acute respiratory failure with hypoxia Is this a current diagnosis for this admission?: Yes (3) COPD (chronic obstructive pulmonary disease) Qualifiers: COPD type: chronic bronchitis Chronic bronchitis type: unspecified Qualified Code(s): J42 - Unspecified chronic bronchitis Is this a current diagnosis for this admission?: Yes Plan: Still smokes. Continue nebulizers and pulmonary toilet. I do not see any need for steroids or antibiotics now. (4) Anxiety Is this a current diagnosis for this admission?: Yes Plan: Since her nausea could be related to Effexor, her to decrease dose tomorrow to see if that improves her symptoms and continue symptomatic treatment as needed (5) Tobacco dependency Is this a current diagnosis for this admission?: Yes Plan: Nicotine replacement (6) Malnutrition related to chronic disease Is this a current diagnosis for this admission?: Yes Plan: Pulmonary cachexia. Unable to consume enough calories to keep up with her metabolic demand.
[2017-10-25] MEDS ORDERED: HYDROMORPHONE HCL INJ/PF 2 MG/ML AMPULE IV PRN ×2 (13:48→13:58)
--- NOTE | 2017-10-25 14:14 | PDOC PROGRESS REPORT ---
Subjective Subjective:: This is a 76-year-old female with a recurrent right spontaneous pneumothorax. The patient underwent chest tube insertion on 10/23/17. The patient does complain of pain in the right chest, due to the tube. Her breathing is nonlabored. She does not feel short of breath. She denies fevers, chills, fatigue, blurry vision. She reports that she is not feeling well today. She attributes it to the "anxiety" medication that she took earlier today. She has had nausea and malaise since early this morning. Reason For Visit: PNEUMOTHORAX Physical Exam Vital Signs: Temp Pulse Resp BP Pulse Ox 97.8 F 99 12 132/81 H 99 10/25/17 11:41 10/25/17 11:41 10/25/17 11:41 10/25/17 11:41 10/25/17 11:41 Intake & Output 10/24/17 10/25/17 10/26/17 06:59 06:59 06:59 Intake Total 718 1362 Output Total 26 Balance 718 1336 Weight 45.5 kg 43.9 kg General appearance: PRESENT: no acute distress Head exam: PRESENT: atraumatic, normocephalic Eye exam: PRESENT: EOMI, PERRLA. ABSENT: scleral icterus Mouth exam: PRESENT: neck supple Neck exam: ABSENT: tenderness, thyromegaly, tracheal deviation Respiratory exam: PRESENT: chest wall tenderness - right side, rales Cardiovascular exam: PRESENT: RRR Pulses: PRESENT: normal radial pulses Vascular exam: PRESENT: normal capillary refill. ABSENT: pallor GI/Abdominal exam: PRESENT: normal bowel sounds, soft. ABSENT: distended, tenderness Rectal exam: PRESENT: deferred Extremities exam: ABSENT: tenderness Musculoskeletal exam: ABSENT: tenderness Neurological exam: PRESENT: CN II-XII grossly intact, other - sleepy, but arouses easily Psychiatric exam: PRESENT: flat affect Skin exam: ABSENT: cyanosis, erythema, jaundice Results Impressions: Chest X-Ray 10/25/17 06:00 IMPRESSION: STABLE APPEARANCE OF THE CHEST WITH RIGHT-SIDED CHEST TUBE IN PLACE. NO DEFINITE RESIDUAL/ RECURRENT PNEUMOTHORAX. Assessment & Plan - Diagnosis (1) Spontaneous pneumothorax Is this a current diagnosis for this admission?: Yes - Plan Summary Plan Summary: This is a 76-year-old female with a recurrent spontaneous pneumothorax. She still exhibits an air leak today on exam. Her chest x-ray does not show any persistent pneumothorax, confirming that the chest tube is functioning adequately. If her air leak does not resolve soon, she may require transfer to a higher level of care for VATS surgery. This has been discussed with the patient and her at length. Continue current treatment for now. I will again discuss the possibility of transfer with the patient and her tomorrow.
[2017-10-25] MEDS: MONTELUKAST SODIUM 10 MG TABLET PO SCH (19:02)
[2017-10-25] MEDS ORDERED: DILTIAZEM HCL INJ 25 MG/5 ML VIAL ONE (22:34)
[2017-10-25] MEDS ORDERED: DILTIAZEM HCL INJ 25 MG/5 ML VIAL IV ONE (22:45)
[2017-10-25] MEDS ORDERED: DILTIAZEM HCL 60 MG TABLET PO ONE (23:00)
[2017-10-25] MEDS ORDERED: DIGOXIN INJ 0.5 MG/2 ML AMPULE IV ONE (23:56)
[2017-10-26] MEDS: IPRATROPIUM/ALBUTEROL 0.5-2.5 MG/3 ML AMPUL NEB PRN (06:01)
[2017-10-26] MEDS: DILTIAZEM HCL 60 MG TABLET PO SCH ×2 (06:25→14:05)
--- NOTE | 2017-10-26 06:58 | RADIOLOGY REPORT (SQ) ---
EXAM DESCRIPTION: XR CHEST 1 VIEW CLINICAL HISTORY: 76 years Female, chest tube COMPARISON: One day prior. NUMBER OF VIEWS/TECHNIQUE: 1/AP FINDINGS: Prominent interstitium, normal cardiac silhouette, atherosclerosis, right-sided chest tube. No pneumothorax. No acute bone defect. IMPRESSION: No significant change.
[2017-10-26] MEDS: IPRATROPIUM/ALBUTEROL 0.5-2.5 MG/3 ML AMPUL NEB SCH ×4 (08:10→19:56)
[2017-10-26 08:58] LABS: ALBUMIN 3.6 g/dL (3.5-5.0); ANION GAP 7 (5-19); BLOOD UREA NITROGEN 12 mg/dL (7-20); CALCIUM 9.3 mg/dL (8.4-10.2); CARBON DIOXIDE 34 mmol/L (22-30); CHLORIDE 88 mmol/L (98-107); GLUCOSE 106 mg/dL (75-110); PHOSPHORUS 3.4 mg/dL (2.5-4.5); POTASSIUM 4.9 mmol/L (3.6-5.0); SODIUM 129.4 mmol/L (137-145)
--- NOTE | 2017-10-26 09:17 | PDOC PROGRESS REPORT ---
Subjective Progress Note for:: 10/26/17 Subjective:: Patient somewhat disoriented last night; has had anxiolytics. Patient is in A. fib with controlled ventricular response. Taking Cardizem p.o. Reason For Visit: PNEUMOTHORAX Physical Exam Vital Signs: Temp Pulse Resp BP Pulse Ox 98.2 F 101 H 24 H 147/92 H 96 10/26/17 03:19 10/26/17 08:10 10/26/17 08:10 10/26/17 03:19 10/26/17 08:26 Intake & Output 10/25/17 10/26/17 10/27/17 06:59 06:59 06:59 Intake Total 1362 15 Output Total 26 18 Balance 1336 -3 Weight 43.9 kg 42.2 kg General appearance: PRESENT: mild distress Respiratory exam: PRESENT: other - Intermittent air leak; moving air bilaterally ; chest tube hooked to suction Results Laboratory Results: 10/26/17 08:10 10/26/17 08:10 Sodium 129.4 L Potassium 4.9 Chloride 88 L Carbon Dioxide 34 H Anion Gap 7 BUN 12 Creatinine 0.46 L Est GFR ( Amer) > 60 Est GFR (Non-Af Amer) > 60 Glucose 106 Calcium 9.3 Phosphorus 3.4 Magnesium 1.7 Albumin 3.6 10/26/17 08:10 NT-Pro-B Natriuret Pep 3540 H Impressions: Chest X-Ray 10/26/17 00:00 IMPRESSION: No significant change. Assessment & Plan - Diagnosis (1) Acute exacerbation of chronic obstructive pulmonary disease (COPD) Is this a current diagnosis for this admission?: Yes Plan: Hospital day 4 for patient with recurrent right pneumothorax, status post thoracostomy to placement with persisting air leak; severe COPD respiratory function stable but tenuous. Atrial fibrillation rate controlled with p.o. medication Recommendations: 1. Patient should undergo VATS procedure; I have spoken with Dr. Stevie Thomas, director of noncardiac thoracic surgery at [facility] is agreed to accept the patient in transfer; paperwork being completed this morning. I did speak to the patient about the plan although not sure she completely understands the details. 2. I spoke with Dr. Haris Ventura, primary care physician about the plans as well. - Time Time Spent with patient: 15-24 minutes Smoking Cessation Education: over 10 minutes
[2017-10-26] MEDS: ENOXAPARIN SODIUM INJ 40 MG/0.4 ML DISP.SYRIN SUBCUT SCH (09:47)
[2017-10-26] MEDS: CALCIUM CARBONATE 500 MG TABLET PO SCH (09:49)
[2017-10-26] MEDS: NICOTINE 21 MG/24 HR PATCH.TD24 TD SCH (09:49)
[2017-10-26] MEDS: FAMOTIDINE 20 MG TABLET PO SCH (09:49)
[2017-10-26] MEDS: MULTIVITAMIN TABLET PO SCH (09:49)
[2017-10-26] MEDS: ANASTROZOLE 1 MG TABLET PO SCH (09:52)
[2017-10-26] MEDS: CHOLECALCIFEROL (D3) 400 UNIT TABLET PO SCH (09:53)
[2017-10-26] MEDS: TIOTROPIUM BROMIDE DPI 5 CAP/KIT (18 MCG/CAP) IH SCH (09:53)
[2017-10-26] MEDS: FLUTICASONE/SALMETEROL DISKUS 250-50 MCG/DOSE IH SCH (09:55)
[2017-10-26] MEDS ORDERED: VENLAFAXINE HCL 37.5 MG CAP.SR.24H PO SCH (10:00)
[2017-10-26 10:35] LABS: ARTERIAL BLOOD BASE EXCESS 2.9 mmol/L; ARTERIAL BLOOD H2CO3 1.41 mmol/L (1.05-1.35); ARTERIAL BLOOD HCO3 28.4 mmol/L (20-26); ARTERIAL BLOOD O2 SATURATION 90.5 % (94-98); ARTERIAL BLOOD PCO2 46.9 mmHg (35-45); ARTERIAL BLOOD PO2 59.2 mmHg (80-100); ARTERIAL BLOOD TOTAL CO2 29.8 mmol/L (21-25)
[2017-10-26 10:36] LABS: ARTERIAL BLOOD FIO2 2L
--- NOTE | 2017-10-26 13:10 | PDOC TRANSFER SUMMARY ---
General Admission Date/PCP: 10/23/17 11:17 JANEEN CARLOS MD Admission Date: 10/23/17 Transfer Date: 10/26/17 Accepting Facility: [facility] Accepting Physician: Dr. Stevie Thomas Resuscitation Status: Full Code - Transfer Diagnosis (1) Spontaneous pneumothorax Is this a current diagnosis for this admission?: Yes Diagnosis Summary: Chest tube was placed in the emergency department surgery. That has been continued. Her second spontaneous pneumothorax in as many weeks. Her surgeon and I both think the best solution here is for her to get a pleurodesis preferably a VATS. Her surgeon has spoken to thoracic surgery at [facility] who agreed to accept her in transfer. (2) Acute respiratory failure with hypoxia Is this a current diagnosis for this admission?: Yes Diagnosis Summary: She has required minimal supplemental oxygen. (3) COPD (chronic obstructive pulmonary disease) Is this a current diagnosis for this admission?: Yes Diagnosis Summary: Relatively stable under the circumstances. Home medications were continued (4) Anxiety Is this a current diagnosis for this admission?: Yes Diagnosis Summary: She has been getting treatment with anxiolytics as well as pain medication. She is fairly confused with waxing and waning course presently. We are trying to balance her pain, anxiety, and sanity. (5) Tobacco dependency Is this a current diagnosis for this admission?: Yes Diagnosis Summary: Still smokes (6) Malnutrition related to chronic disease Is this a current diagnosis for this admission?: Yes Diagnosis Summary: Pulmonary cachexia - Transfer Medications Home Medications: Albuterol Sulfate [Proair HFA] 1 puff IH Q4HP PRN 09/21/17 Albuterol Sulfate [Ventolin 0.083% Neb 2.5 mg/3 mL Ampul] 3 ml NEB RTQ4HP PRN Anastrozole [Arimidex 1 mg Tablet] 1 mg PO DAILY 09/21/17 Calcium Carbonate [Calcium] 600 mg PO DAILY 09/21/17 Cholecalciferol (Vitamin D3) [Vitamin D3 400 Unit Tablet] 400 unit PO DAILY 03/02 Denosumab [Prolia 60 mg/ml Syr 1 ml] 60 mg PO .[id number] 09/21/17 Fluticasone/Salmeterol [Advair 250-50 Diskus 28 dose] 1 puff IH Q12 09/21/17 Montelukast Sodium [Singulair 10 mg Tablet] 10 mg PO QPM 09/21/17 Multivitamin [Multiple Vitamins] 1 tab PO DAILY 09/21/17 Olopatadine HCl [Patanol] 1 drop OU Q12HP PRN 09/21/17 Tiotropium [place] [Spiriva Respimat] 2 puff IH QAM 09/21/17 Transfer Medications: Current Medications Acetaminophen (Tylenol 325 Mg Tablet) 650 mg PO Q4HP PRN PRN Reason: pain 1-2 Stop: 11/22/17 14:53 Albuterol (Ventolin 0.083% Neb 2.5 Mg/3 Ml Ampul) 2.5 mg NEB RTQ4HP PRN PRN Reason: SHORTNESS OF BREATH Stop: 11/22/17 13:31 Albuterol/Ipratropium (Duoneb 3 Ml Ampul) 3 ml NEB [id number] SUDEEP Stop: 11/22/17 15:59 Last Admin: 10/26/17 12:16 Dose: 3 ml Albuterol/Ipratropium (Duoneb 3 Ml Ampul) 3 ml NEB RTQ4HP PRN PRN Reason: SHORTNESS OF BREATH Stop: 11/22/17 14:53 Last Admin: 10/26/17 06:01 Dose: 3 ml Anastrozole (Arimidex 1 Mg Tablet) 1 mg PO DAILY [facility] Stop: 11/23/17 09:59 Last Admin: 10/26/17 09:52 Dose: 1 mg Calcium Carbonate (Os-Aren 500 Mg Tablet (Oyster-Shell)) 500 mg PO DAILY SUDEEP Stop: 11/23/17 09:59 Last Admin: 10/26/17 09:49 Dose: 500 mg Cholecalciferol (Vitamin D3 400 Unit Tablet) 400 unit PO DAILY SUDEEP Stop: 11/23/17 09:59 Last Admin: 10/26/17 09:53 Dose: 400 unit Diltiazem HCl (Cardizem 60 Mg Tablet) 60 mg PO Q8 SUDEEP Stop: 11/25/17 05:59 Last Admin: 10/26/17 06:25 Dose: 60 mg Enoxaparin Sodium (Lovenox Inj 40 Mg/0.4 Ml Disp.Syrin) 40 mg SUBCUT DAILY SUDEEP Stop: 11/23/17 09:59 Last Admin: 10/26/17 09:47 Dose: 40 mg Famotidine (Pepcid 20 Mg Tablet) 20 mg PO Q12 SUDEEP Stop: 11/22/17 21:59 Last Admin: 10/26/17 09:49 Dose: 20 mg Hydromorphone HCl (Dilaudid Inj/Pf 2 Mg/Ml Ampule) 0.5 mg IV Q4HP PRN PRN Reason: SEVERE PAIN Stop: 11/01/17 13:47 Lorazepam (Ativan 1 Mg Tablet) 1 mg PO Q6HP PRN PRN Reason: ANXIETY/AGITATION Stop: 10/31/17 11:10 Last Admin: 10/24/17 22:32 Dose: 1 mg Montelukast Sodium (Singulair 10 Mg Tablet) 10 mg PO QPM SUDEEP Stop: 11/22/17 17:59 Last Admin: 10/25/17 19:02 Dose: 10 mg Multivitamins (Tab-A-Yolanda (Multiple Vitamin) Tablet) 1 tab PO DAILY SUDEEP Stop: 11/23/17 09:59 Last Admin: 10/26/17 09:49 Dose: 1 tab Nicotine (Nicoderm 21 Mg/24 Hr Transderm Patch) 1 each TD DAILY SUDEEP Stop: 11/23/17 09:59 Last Admin: 10/26/17 09:49 Dose: 1 each Olopatadine HCl (Patanol 0.1% Oph Soln 5 Ml) 1 drop OU Q12HP PRN PRN Reason: FOR ALLERGIES Stop: 11/22/17 13:31 Ondansetron HCl (Zofran Inj/Pf 4 Mg/2 Ml Sdv) 4 mg IV Q4HP PRN PRN Reason: FOR NAUSEA/VOMITING Stop: 11/22/17 13:31 Last Admin: 10/25/17 10:31 Dose: 4 mg Oxycodone/Acetaminophen (Percocet 5-325 Mg Tablet) 1 tab PO Q4HP PRN PRN Reason: pain 3-5 Stop: 10/30/17 14:53 Last Admin: 10/25/17 21:57 Dose: 1 tab Fluticasone/Salmeterol (Advair 250-50 Diskus 14 Dose/Diskus) 1 inh IH Q12 SUDEEP Stop: 11/22/17 21:59 Last Admin: 10/26/17 09:55 Dose: 1 inh Sodium Chloride (Saline Flush 2.5 Ml Monoject Prefil Syrin) 2.5 ml IV Q8 SUDEEP Stop: 11/22/17 13:59 Last Admin: 10/26/17 06:25 Dose: 2.5 ml Tiotropium [place] (Spiriva Handihaler 5 Cap/Kit (18 Mcg/Cap)) 1 cap IH QAM [facility] Stop: 11/23/17 07:59 Last Admin: 10/26/17 09:53 Dose: 1 cap - Allergies Allergies/Adverse Reactions: ibuprofen [Ibuprofen] Allergy (Verified 05/27/17 09:20) ITCHING naproxen sodium [From Aleve] Allergy (Verified 05/27/17 09:20) ITCHING, PASSES OUT, SHOCK Penicillins Allergy (Verified 05/27/17 09:20) Hives theophylline anhydrous [From Theophyl] Allergy (Verified 05/27/17 09:20) Hives adhesive tape [Adhesive Tape] Adverse Reaction (Mild, Verified 05/27/17 09:20) rash, tears skin - Diet/Activity Discharge Diet: As Tolerated Discharge Activity: Bedrest Hospital Course Hospital Course: AXEL NORMAN is a 76 year old female with a one-day history of worsening shortness of breath and cough. The patient recently underwent tube thoracostomy for spontaneous pneumothorax 1 month ago. The patient reports that her current symptoms feel similar to her previous pneumothorax. She reports shortness of breath, cough, chest pain in her right lateral/posterior chest. She denies fevers or chills. Nothing makes her shortness of breath better. She is unable to talk in full sentences due to her dyspnea. She had a chest tube placed in the emergency department. She was admitted to an intermediate care bed, chest tube was continued to a pleural VAC. She has had considerable pain and panic attacks that we have been treating with narcotics and anxiolytics. This is resulted in considerable confusion and occasional agitation. We are continuing to try to optimize. Physical Exam Vital Signs: Temp Pulse Resp BP Pulse Ox 98.7 F 101 H 24 H 136/77 H 96 10/26/17 08:00 10/26/17 08:10 10/26/17 08:10 10/26/17 08:00 10/26/17 08:26 Intake & Output 10/25/17 10/26/17 10/27/17 05:59 05:59 05:59 Intake Total 1362 15 10 Output Total 1 43 Balance 1361 -28 10 Weight 96 lb 12.527 oz 93 lb 0.561 oz General appearance: PRESENT: no acute distress, other - Sedate but easily arousable. ABSENT: well-nourished Respiratory exam: PRESENT: clear to auscultation henri, other - Chest tube in place connected to Pleur-evac Cardiovascular exam: PRESENT: RRR GI/Abdominal exam: PRESENT: soft Neurological exam: PRESENT: other - Mildly sedated. Moving all 4 extremities Skin exam: PRESENT: warm Results Laboratory Results: 10/26/17 08:10 10/26/17 10/26/17 08:10 10:15 Carbonic Acid 1.41 H HCO3/H2CO3 Ratio 20:1 ABG pH 7.40 ABG pCO2 46.9 H ABG pO2 59.2 L ABG HCO3 28.4 H ABG O2 Saturation 90.5 L ABG Base Excess 2.9 FiO2 2L Sodium 129.4 L Potassium 4.9 Chloride 88 L Carbon Dioxide 34 H Anion Gap 7 BUN 12 Creatinine 0.46 L Est GFR ( Amer) > 60 Est GFR (Non-Af Amer) > 60 Glucose 106 Calcium 9.3 Phosphorus 3.4 Magnesium 1.7 Albumin 3.6 10/26/17 08:10 NT-Pro-B Natriuret Pep 3540 H Impressions: Chest X-Ray 10/26/17 00:00 IMPRESSION: No significant change. Plan Time Spent: Greater than 30 Minutes
--- NOTE | 2017-10-26 14:10 | RADIOLOGY REPORT (SQ) ---
EXAM DESCRIPTION: CT CHEST WITHOUT COMPLETED DATE/TIME: 10/26/2017 1:19 pm REASON FOR STUDY: recurrent pneumothorax COMPARISON: CT chest 10/13/2016, 06/27/2013 Multiple chest films from 09/21/2017 through 10/27/2017 TECHNIQUE: CT scan performed of the chest without intravenous contrast. Images reviewed with lung, soft tissue and bone windows. Reconstructed coronal and sagittal MPR images reviewed. All images st ored on PACS. All CT scanners at this facility use dose modulation, iterative reconstruction, and/or weight based d osing when appropriate to reduce radiation dose to as low as reasonably achievable (ALARA). [facility]: Dose Right [facility]: CareDose [facility]: Dose Right [facility]: Teradose 4D [facility]: [employer] RADIATION DOSE: 5 mGy. LIMITATIONS: No technical limitations. FINDINGS: LUNGS AND PLEURA: On the right side, a large bore chest tube is present, with the tip at t he apex right hemithorax. There is trace residual apical, medial, and basilar pneumothorax. No pleu ral effusion. No mediastinal shift. There is consolidation at both lower lobes, atelectasis versus pneumonia. There is a stable bulla or bleb in the medial right lower lobe along the as ago esophageal recess axi al image 68. This measures about 3.5 cm in size. No worrisome pulmonary nodules. HILAR AND MEDIASTINAL STRUCTURES: No identified masses or abnormal nodes. No obvious aneurysm. HEART AND VASCULAR STRUCTURES: No aneurysm. No pericardial effusion. Prominent main pulmonary arter y likely from pulmonary hypertension. Calcified aortic valve and coronary arteries UPPER ABDOMEN: No significant findings. Limited exam. THYROID AND OTHER SOFT TISSUES: Heterogeneous thyroid unchanged BONES: Advanced degenerative disc changes at L1-2 HARDWARE: None in the chest. OTHER: No other significant findings. IMPRESSION: Large for right chest tube present in good positioning. Minimal residual right pneumoth orax. Bulla or bleb along the medial right lower lobe, at along the as ago esophageal recess region Bilateral lower lobe dependent consolidation likely atelectasis. Pneumonia could not be excluded. TECHNICAL DOCUMENTATION: JOB ID: [id number] Quality ID # [id number]: Final reports with documentation of one or more dose reduction techniques (e.g., Au tomated exposure control, adjustment of the mA and/or kV according to patient size, use of iterative reconstruction technique) 2010 [employer]- All Rights Reserved Reading location - IP/workstation name: [email or web address]
--- NOTE | 2017-10-26 14:36 | PDOC CONSULTATION ---
Consultation Consult Date: 10/23/17 Attending physician:: KIMBERLY FRANKEL Consult reason:: r pneumothorax History of Present Illness Admission Date/PCP: 10/23/17 11:17 JANEEN CARLOS MD History of Present Illness: AXEL NORMAN is a 76 year old female 120 py hx has 2 R pneumothorax awoke,SOB, since patient has had prior pneumthorax she was sure that this process was a re- occurence of her R sided pnemothorax;no fever,chills,nausea, Past Medical History Cardiac Medical History: Denies: Coronary Artery Disease, Myocardial Infarction, Hypertension Pulmonary Medical History: Reports: Asthma, Chronic Obstructive Pulmonary Disease (COPD), Pneumonia - 2009, Other - Recent pneumothorax with chest tube Denies: Bronchitis Neurological Medical History: Denies: Seizures GI Medical History: Reports: Diverticulitis Musculoskeltal Medical History: Reports: Arthritis Psychiatric Medical History: Denies: Depression Hematology: Denies: Anemia, Sickle Cell Disease Past Surgical History Past Surgical History: Reports: Appendectomy, Mastectomy, Tubal Ligation Denies: Amputation, Hysterectomy Social History Lives with: Family Smoking Status: Former Smoker Cigarettes Packs Per Day: 2 Number of Years Smokin Last Time Smoked: 1 months Passive smoke exposure as: Both Frequency of Alcohol Use: Occasional Hx Recreational Drug Use: No Drugs: None Hx Prescription Drug Abuse: No Do you have pets?: Yes Have you had any respiratory illnesses as a child?: No Have you been exposed to any sick contacts recently?: No Have you had any recent respiratory illnesses?: No Have you travelled outside of [place] in the past 12 months?: No - Advance Directive Resuscitation Status: Full Code Family History Family History: CAD, COPD, Hypertension Parental Family History Reviewed: Yes Children Family History Reviewed: Yes Sibling(s) Family History Reviewed.: Yes Medication/Allergy Home Medications: Albuterol Sulfate [Proair HFA] 1 puff IH Q4HP PRN 09/21/17 Albuterol Sulfate [Ventolin 0.083% Neb 2.5 mg/3 mL Ampul] 3 ml NEB RTQ4HP PRN Anastrozole [Arimidex 1 mg Tablet] 1 mg PO DAILY 09/21/17 Calcium Carbonate [Calcium] 600 mg PO DAILY 09/21/17 Cholecalciferol (Vitamin D3) [Vitamin D3 400 Unit Tablet] 400 unit PO DAILY 03/02 Denosumab [Prolia 60 mg/ml Syr 1 ml] 60 mg PO .[id number] 09/21/17 Fluticasone/Salmeterol [Advair 250-50 Diskus 28 dose] 1 puff IH Q12 09/21/17 Montelukast Sodium [Singulair 10 mg Tablet] 10 mg PO QPM 09/21/17 Multivitamin [Multiple Vitamins] 1 tab PO DAILY 09/21/17 Olopatadine HCl [Patanol] 1 drop OU Q12HP PRN 09/21/17 Tiotropium [place] [Spiriva Respimat] 2 puff IH QAM 09/21/17 Allergies/Adverse Reactions: ibuprofen [Ibuprofen] Allergy (Verified 05/27/17 09:20) ITCHING naproxen sodium [From Aleve] Allergy (Verified 05/27/17 09:20) ITCHING, PASSES OUT, SHOCK Penicillins Allergy (Verified 05/27/17 09:20) Hives theophylline anhydrous [From Theophyl] Allergy (Verified 05/27/17 09:20) Hives adhesive tape [Adhesive Tape] Adverse Reaction (Mild, Verified 05/27/17 09:20) rash, tears skin Review of Systems Constitutional: PRESENT: fatigue, weakness. ABSENT: chills, fever(s), night sweats Eyes: ABSENT: visual disturbances Ears: ABSENT: hearing changes Nose, Mouth, and Throat: ABSENT: mouth pain, sore throat Cardiovascular: PRESENT: dyspnea on exertion. ABSENT: orthropnea, palpitations Respiratory: PRESENT: cough, dyspnea. ABSENT: hemoptysis Gastrointestinal: ABSENT: abdominal pain, bloating, coffee ground emesis, diarrhea, dysphagia, heartburn, hematemesis, hematochezia, melena Genitourinary: ABSENT: dysuria, hematuria Musculoskeletal: ABSENT: deformity, joint swelling Neurological: ABSENT: abnormal gait, abnormal movements, abnormal speech, confusion, convulsions, focal weakness, frequent falls, lack of coordination, memory loss, numbness Psychiatric: ABSENT: hallucinations, homidical ideation, suicidal ideation Endocrine: ABSENT: cold intolerance, heat intolerance, polydipsia, polyuria Hematologic/Lymphatic: PRESENT: easy bruising Physical Exam Vital Signs: Temp Pulse Resp BP Pulse Ox 97.9 F 93 18 120/87 H 94 10/24/17 07:43 10/24/17 11:57 10/24/17 11:57 10/24/17 07:43 10/24/17 11:57 Intake & Output 10/23/17 10/24/17 10/25/17 06:59 06:59 06:59 Intake Total 718 Balance 718 Weight 45.5 kg General appearance: PRESENT: no acute distress, cooperative, disheveled, thin Head exam: PRESENT: atraumatic, normocephalic Eye exam: PRESENT: conjunctiva pale, EOMI. ABSENT: nystagmus, periorbital swelling, scleral icterus Mouth exam: PRESENT: dry mucosa, neck supple, tongue midline Teeth exam: PRESENT: poor dentation Neck exam: ABSENT: carotid bruit, JVD, lymphadenopathy, thyromegaly, tracheal deviation, tracheostomy Respiratory exam: PRESENT: decreased breath sounds, prolonged expiratory phas, rhonchi, unlabored, wheezes. ABSENT: retraction, stridor, tachypnea Cardiovascular exam: PRESENT: RRR, +S1, +S2 Pulses: PRESENT: normal radial pulses GI/Abdominal exam: PRESENT: diminished bowel sounds, soft Extremities exam: ABSENT: calf tenderness, clubbing, joint swelling Musculoskeletal exam: PRESENT: ambulatory. ABSENT: deformity, dislocation Neurological exam: PRESENT: alert, awake Psychiatric exam: PRESENT: normal mood Skin exam: PRESENT: dry, warm Results Impressions: Chest X-Ray 10/24/17 06:00 IMPRESSION: No recurrent right pneumothorax status post right chest tube placement. Assessment & Plan - Diagnosis (1) COPD (chronic obstructive pulmonary disease) Qualifiers: COPD type: chronic bronchitis Chronic bronchitis type: unspecified Qualified Code(s): J42 - Unspecified chronic bronchitis Is this a current diagnosis for this admission?: Yes Plan: Generic Name Dose Route Start Last Admin Trade Name Freq PRN Reason Stop Dose Admin Fluticasone/Salmeterol 1 inh 10/23/17 22:00 10/25/17 10:39 Advair 250-50 Diskus 14 Dose/Diskus IH 11/22/17 21:59 1 inh Q12 SUDEEP Albuterol/Ipratropium 3 ml 10/23/17 14:54 10/23/17 20:05 Duoneb 3 Ml Ampul NEB 11/22/17 14:53 3 ml RTQ4HP PRN SHORTNESS OF BREATH Tiotropium [place] 1 cap 10/24/17 08:00 10/25/17 10:32 Spiriva Handihaler 5 Cap/Kit (18 Mcg/Cap) IH 11/23/17 07:59 1 cap QAM SUDEEP Albuterol 2.5 mg 10/23/17 13:32 Ventolin 0.083% Neb 2.5 Mg/3 Ml Ampul NEB 11/22/17 13:31 RTQ4HP PRN SHORTNESS OF BREATH Albuterol/Ipratropium 3 ml 10/23/17 16:00 10/25/17 08:10 Duoneb 3 Ml Ampul NEB 11/22/17 15:59 3 ml [id number] SUDEEP (2) Spontaneous pneumothorax Is this a current diagnosis for this admission?: Yes Plan: 2nd pneumothorax,Will require CT scan,Will eventually need to see thoracic surgery to oversew blebs resulting in pneumothoraces question as to transfer to thoracic surgery or to wait patient is healed and thoracostomy tube has been removed
[2017-10-26] MEDS ORDERED: SODIUM CHLORIDE 1 GM TABLET PO SCH (18:00)
[2017-10-26] MEDS: MONTELUKAST SODIUM 10 MG TABLET PO SCH (18:32)
[2017-10-26] MEDS ORDERED: ALPRAZOLAM 0.25 MG TABLET PO ONE (19:00)
[2017-10-26 19:04] VITALS: BP 116/60
== END 2017-10-26 20:24 | disposition short-term general hospital (02) | DRG 199 ==
LOC: ER 07:44 → EH 11:17 → 3S 13:03
PROVIDERS: ADMIT Internal Medicine; ATTEND Internal Medicine
PROC: 0W9900Z Drainage of Right Pleural Cavity with Drainage Device, Open Approach (ICD-10-PCS; principal; 2017-10-23)
PROC: 3E0F73Z Introduction of Anti-inflammatory into Respiratory Tract, Via Natural or Artificial Opening (ICD-10-PCS; 2017-10-23)
DX: J93.83 Other pneumothorax (principal); J96.01 Acute respiratory failure with hypoxia; R64 Cachexia; Z68.1 Body mass index [BMI] 19.9 or less, adult; J44.9 Chronic obstructive pulmonary disease, unspecified; F41.9 Anxiety disorder, unspecified; M19.90 Unspecified osteoarthritis, unspecified site; I48.91 Unspecified atrial fibrillation; Z85.3 Personal history of malignant neoplasm of breast; Z79.899 Other long term (current) drug therapy; Z88.6 Allergy status to analgesic agent; Z88.0 Allergy status to penicillin; Z88.8 Allergy status to other drugs, medicaments and biological substances; Z90.10 Acquired absence of unspecified breast and nipple; Z87.891 Personal history of nicotine dependence; Z82.49 Family history of ischemic heart disease and other diseases of the circulatory system; Z83.6 Family history of other diseases of the respiratory system; Z80.3 Family history of malignant neoplasm of breast
CPT/HCPCS: 36415; 71045; 71250; 80053; 80069; 82550; 82553; 82803; 83735; 83880; 84484; 85025; 93005; 93010; 94640; 96374; 99285; J1160; J1650; J2250; J2270; J2405; J3010; J3490; J7620

== ENCOUNTER → 2018-03-15 | Outpatient (CLI) | payer MEDICARE, BC ==
--- NOTE | 2018-03-18 11:05 | WOMENS IMAGING REPORT ---
EXAM DESCRIPTION: 3D DX MAMMO RIGHT UNILAT; U/S BREAST UNILAT LIMITED COMPLETED DATE/TIME: 03/15/2018 11:50 am; 03/15/2018 1:10 pm REASON FOR STUDY: N63.13 RIGHT PHYSICIAN PALP LOQ; HX BREAST CANCER Z12.31 ENCNTR SCREEN MAMMOGRAM FOR MALIGNANT NEOPLASM OF TYREL COMPARISON: Multiple since 2008 TECHNIQUE: Standard craniocaudal, 90 mediolateral and mediolateral oblique images of the breast rec orded using digital acquisition and breast tomosynthesis. Right breast ultrasound was also performed. LIMITATIONS: None. FINDINGS: BREAST: Right MASSES: No suspicious masses. CALCIFICATIONS: No new or suspicious calcifications. ARCHITECTURAL DISTORTION: None. DEVELOPING DENSITY: None. ASYMMETRY: None noted. OTHER: No other significant findings. Read with the assistance of CAD. .[facility] - R2 Cenova Version 1.3 .[facility] - R2 Cenova Version 1.3 .[facility] - R2 Cenova Version 2.4 .[facility] [place] - R2 Cenova Version 2.4 .[facility] - R2 Surgery Center Administrator Version 9.2 Right breast ultrasound: Patient indicates a palpable abnormality in the right breast lower outer quadrant. Ultrasound of the lower outer quadrant right breast demonstrates no discrete cystic or solid lesions. No dilated duct s. No worrisome acoustic absorption. IMPRESSION: No mammographic or sonographic evidence for malignancy right breast. BREAST DENSITY: d. The breasts are extremely dense, which lowers the sensitivity of mammography. BIRAD: 1 Negative. RECOMMENDATION: RECOMMENDED FOLLOW UP: Please continue yearly tomosynthesis in March 2019 SPECIFIC INTERVENTION/IMAGING/CONSULTATION RECOMMENDED:No additional intervention/ imaging/consultati on needed at this time. COMMUNICATION:The negative/benign results were communicated to the patient. COMMENT: The patient has been notified of the results by letter per SA requirements. Additional no tification policies are in place for contacting patient with suspicious or incomplete findings. Quality ID #[id number]: The [employer] recommends an annual screening mammogram for women aged 40 years or over. This facility utilizes a reminder system to ensure that all patients receive reminder letters, and/or direct phone calls for appointments. This includes reminders for routine scr eening mammograms, diagnostic mammograms, or other Breast Imaging Interventions when appropriate. Th is patient will be placed in the appropriate reminder system. The [employer] (ACR) has developed recommendations for screening MRI of the breast s in certain patient populations, to be used in conjunction with mammography. Breast MRI surveillanc e may be appropriate for women with more than 20% lifetime risk of developing breast cancer as deter mined by genetic testing, significant family history of the disease, or history of mantle radiation f or Hodgkins Disease. ACR Practice Guidelines 2008. DBT Technology DBT is a type of tomographic mammography. With conventional mammography, overlapping breast tissue ma y make lesions difficult to detect, even with good compression. DBT uses an x-ray tube that rotates a round the breast, taking images at different angles. These images are then combined to create thin sl ices of the breast that the radiologist can view as a 3D reconstruction. The Qubulus unit can perform full-field digital mammograms (2D imaging); or DBT (3D imaging); or both, in a combination mode that quickly performs both the mammogram and the tomosynthesis scan while the breast is still compressed. RS 6045F: Fluoroscopic imaging is not utilized for breast tomosynthesis. TECHNICAL DOCUMENTATION: FINDING NUMBER: (1) ASSESSMENT: (1) JOB ID: [id number] [employer]- All Rights Reserved Reading location - IP/workstation name: [email or web address]
--- NOTE | 2018-03-18 11:05 | WOMENS IMAGING REPORT ---
EXAM DESCRIPTION: 3D DX MAMMO RIGHT UNILAT; U/S BREAST UNILAT LIMITED COMPLETED DATE/TIME: 03/15/2018 11:50 am; 03/15/2018 1:10 pm REASON FOR STUDY: N63.13 RIGHT PHYSICIAN PALP LOQ; HX BREAST CANCER Z12.31 ENCNTR SCREEN MAMMOGRAM FOR MALIGNANT NEOPLASM OF TYREL COMPARISON: Multiple since 2008 TECHNIQUE: Standard craniocaudal, 90 mediolateral and mediolateral oblique images of the breast rec orded using digital acquisition and breast tomosynthesis. Right breast ultrasound was also performed. LIMITATIONS: None. FINDINGS: BREAST: Right MASSES: No suspicious masses. CALCIFICATIONS: No new or suspicious calcifications. ARCHITECTURAL DISTORTION: None. DEVELOPING DENSITY: None. ASYMMETRY: None noted. OTHER: No other significant findings. Read with the assistance of CAD. .[facility] - R2 Cenova Version 1.3 .[facility] Imaging - R2 Cenova Version 1.3 .[facility] - R2 Cenova Version 2.4 .[facility] [place]2 Cenova Version 2.4 .[facility] - R2 Clerical Proofreader Version 9.2 Right breast ultrasound: Patient indicates a palpable abnormality in the right breast lower outer quadrant. Ultrasound of the lower outer quadrant right breast demonstrates no discrete cystic or solid lesions. No dilated duct s. No worrisome acoustic absorption. IMPRESSION: No mammographic or sonographic evidence for malignancy right breast. BREAST DENSITY: d. The breasts are extremely dense, which lowers the sensitivity of mammography. BIRAD: 1 Negative. RECOMMENDATION: RECOMMENDED FOLLOW UP: Please continue yearly tomosynthesis in March 2019 SPECIFIC INTERVENTION/IMAGING/CONSULTATION RECOMMENDED:No additional intervention/ imaging/consultati on needed at this time. COMMUNICATION:The negative/benign results were communicated to the patient. COMMENT: The patient has been notified of the results by letter per SA requirements. Additional no tification policies are in place for contacting patient with suspicious or incomplete findings. Quality ID #[id number]: The [employer] recommends an annual screening mammogram for women aged 40 years or over. This facility utilizes a reminder system to ensure that all patients receive reminder letters, and/or direct phone calls for appointments. This includes reminders for routine scr eening mammograms, diagnostic mammograms, or other Breast Imaging Interventions when appropriate. Th is patient will be placed in the appropriate reminder system. The [employer] (ACR) has developed recommendations for screening MRI of the breast s in certain patient populations, to be used in conjunction with mammography. Breast MRI surveillanc e may be appropriate for women with more than 20% lifetime risk of developing breast cancer as deter mined by genetic testing, significant family history of the disease, or history of mantle radiation f or Hodgkins Disease. ACR Practice Guidelines 2008. DBT Technology DBT is a type of tomographic mammography. With conventional mammography, overlapping breast tissue ma y make lesions difficult to detect, even with good compression. DBT uses an x-ray tube that rotates a round the breast, taking images at different angles. These images are then combined to create thin sl ices of the breast that the radiologist can view as a 3D reconstruction. The Upplication unit can perform full-field digital mammograms (2D imaging); or DBT (3D imaging); or both, in a combination mode that quickly performs both the mammogram and the tomosynthesis scan while the breast is still compressed. RS 6045F: Fluoroscopic imaging is not utilized for breast tomosynthesis. TECHNICAL DOCUMENTATION: FINDING NUMBER: (1) ASSESSMENT: (1) JOB ID: [id number] [employer]- All Rights Reserved Reading location - IP/workstation name: [email or web address]
== END ==
LOC: WI 11:11
PROVIDERS: ATTEND Internal Medicine Hematology & Oncology
DX: N63.13 Unspecified lump in the right breast, lower outer quadrant (principal)
CPT/HCPCS: 76642; 77065; G0279

== ENCOUNTER → 2019-03-15 | Outpatient (CLI) | payer MEDICARE, BC ==
--- NOTE | 2019-03-15 13:30 | WOMENS IMAGING REPORT ---
EXAM DESCRIPTION: 3D DX MAMMO RIGHT UNILAT COMPLETED DATE/TIME: 03/15/2019 10:45 am REASON FOR STUDY: N63.0 UNSPECIFIED LUMP IN UNSPECIFIED BREAST N63.0 UNSPECIFIED LUMP IN UNSPECIFIE D BREAST COMPARISON: Digital tomosynthesis diagnostic right breast mammogram dated 03/15/2018, digital bilater al screening mammogram dated 03/06/2016 and 02/13/2015. EXAM PARAMETERS: Standard craniocaudal and mediolateral oblique images of the breast recorded using digital acquisition and breast tomosynthesis. Read with the assistance of CAD. .[facility] - [place] Sanitation Manager Version 9.2 LIMITATIONS: None. FINDINGS: BREAST LATERALITY: RIGHT MASSES: No suspicious masses. CALCIFICATIONS: No new or suspicious calcifications. ARCHITECTURAL DISTORTION: None. DEVELOPING DENSITY: None. ASYMMETRY: None noted. OTHER: No other significant findings. RIGHT AXILLA: TECHNIQUE: Static and dynamic grayscale images acquired of the right axilla in the specific areas of clinical/mammographic concern. Selected color Doppler images recorded. ELASTOGRAPHY PERFORMED: No. LIMITATIONS: None. FINDINGS: MASS: No mass identified. There are lymph nodes identified with the two largest measuring 1.0 x 1.7 x 0.3 cm and 1.1 x 0.3 x 0.8 cm which contain a hilus of fat, likely on a benign reactive basis. ELASTOGRAPHY CHARACTERISTICS: Not applicable. OTHER: No other significant finding. IMPRESSION: 1. Stable examination. No mammographic evidence of malignancy. BREAST DENSITY: c. The breast is heterogeneously dense, which may obscure small masses. BIRAD: ASSESSMENT: 2 Benign findings. RECOMMENDATION: 1. Clinical correlation and patient advised to follow-up with her provider. 2. Routine screening mammogram. COMMUNICATION:The negative/benign results were communicated to the patient. COMMENT: The patient has been notified of the results by letter per MQSA requirements. Additional no tification policies are in place for contacting patient with suspicious or incomplete findings. Quality ID #[id number]: The [employer] recommends an annual screening mammogram for women aged 40 years or over. This facility utilizes a reminder system to ensure that all patients receive reminder letters, and/or direct phone calls for appointments. This includes reminders for routine scr eening mammograms, diagnostic mammograms, or other Breast Imaging Interventions when appropriate. Th is patient will be placed in the appropriate reminder system. TECHNICAL DOCUMENTATION: FINDING NUMBER: (1) ASSESSMENT: (1) JOB ID: [id number]- All Rights Reserved Reading location - IP/workstation name: [email or web address]
--- NOTE | 2019-03-15 16:33 | WOMENS IMAGING REPORT ---
EXAM DESCRIPTION: U/S BREAST UNILAT LIMITED COMPLETE DATE/TIME: 03/15/2019 11:05 am REASON FOR STUDY: RT BREAST LUMP N63.0 UNSPECIFIED LUMP IN UNSPECIFIED BREAST Palpable abnormality right axilla FINDINGS: Please see combined report for performance of procedure and radiologic supervision and int erpretation. IMPRESSION: Please see combined report for performance of procedure and radiologic supervision and i nterpretation. COMPARISON Mammograms since 2017 Reading location - IP/workstation name: [email or web address]
== END ==
LOC: WI 10:20
PROVIDERS: ATTEND Physician Assistant Medical
DX: N63.0 Unspecified lump in unspecified breast (principal)
CPT/HCPCS: 76642; 77065; G0279

== ENCOUNTER → 2019-05-09 | Outpatient (CLI) | payer MEDICARE, BC ==
--- NOTE | 2019-05-09 14:33 | RADIOLOGY REPORT (SQ) ---
EXAM DESCRIPTION: CT CHEST WITHOUT COMPLETED DATE/TIME: 05/09/2019 2:08 pm REASON FOR STUDY: OTHER NONSPECIFIC ABNORMAL FINDING OF LUNG FIELD (R91.8), COPD (J44.9) R91.8 OTHE R NONSPECIFIC ABNORMAL FINDING OF LUNG FIELD J44.9 CHRONIC OBSTRUCTIVE PULMONARY DISEASE, UNSPECIFIE D Z85.3 PERSONAL HISTORY OF MALIGNANT NEOPLASM OF BREAST COMPARISON: CT chest 06/27/2013, 10/13/2016, 10/26/2017 TECHNIQUE: CT scan performed of the chest without intravenous contrast. Images reviewed with lung, soft tissue and bone windows. Reconstructed coronal and sagittal MPR images reviewed. All images st ored on PACS. All CT scanners at this facility use dose modulation, iterative reconstruction, and/or weight based d osing when appropriate to reduce radiation dose to as low as reasonably achievable (ALARA). [facility]: Dose Right [facility]: CareDose [facility]: Dose Right [facility]: Teradose 4D [facility]: Smart Technologies RADIATION DOSE: CT Rad equipment meets quality standard of care and radiation dose reduction techniq ues were employed. CTDIvol: 2.8 mGy. DLP: 126 mGy-cm. mGy. LIMITATIONS: No technical limitations. FINDINGS: LUNGS AND PLEURA: Lungs are hyperinflated and hyperlucent from obstructive disease. There is a row of lung parenchymal funmi along the medial right lung apex. An 8 x 4 cm bulla or bleb is present in the medial right lung base, along the azygoesophageal recess axial image 64 and coronal image 55. This is similar compared to multiple previous studies No acute infiltrates. No pleural effusion. Minimal scarring or atelectasis just above the right hem idiaphragm axial image 104. HILAR AND MEDIASTINAL STRUCTURES: No identified masses or abnormal nodes. No obvious aneurysm. HEART AND VASCULAR STRUCTURES: No aneurysm. No pericardial effusion. Heavily calcified coronary art eries. Calcified aortic valve. UPPER ABDOMEN: No significant findings. Limited exam. THYROID AND OTHER SOFT TISSUES: No masses. No adenopathy. BONES: No acute fracture. Lower thoracic/ upper lumbar disc space loss of height with vacuum phenome non HARDWARE: None in the chest. OTHER: No other significant findings. IMPRESSION: Obstructive lung disease. Surgical clips along the medial right lung apex. Persistent bulla or bleb along the medial right lung 8 x 4 cm in size TECHNICAL DOCUMENTATION: JOB ID: [id number] Quality ID # [id number]: Final reports with documentation of one or more dose reduction techniques (e.g., Au tomated exposure control, adjustment of the mA and/or kV according to patient size, use of iterative reconstruction technique) 2010 [employer]- All Rights Reserved Reading location - IP/workstation name: [email or web address]
== END ==
LOC: RAD 13:35
PROVIDERS: ATTEND Internal Medicine Critical Care Medicine
DX: R91.8 Other nonspecific abnormal finding of lung field (principal); J44.9 Chronic obstructive pulmonary disease, unspecified; Z85.3 Personal history of malignant neoplasm of breast
CPT/HCPCS: 71250

== ENCOUNTER 2019-05-12 13:42 | Emergency (ER) | payer MEDICARE, BC ==
--- NOTE | 2019-05-12 14:05 | ER Document Report ---
ED Medical Screen (RME) - General Chief Complaint: Breathing Difficulty Stated Complaint: DIFFICULTY BREATHING Time Seen by Provider: 05/12/19 14:00 Primary Care Provider: DIANA WRAY MD [Primary Care Provider] - Follow up as needed Mode of Arrival: Ambulatory Information source: Patient Notes: 78-year-old female pain presented to ED for severe hypoxia. She states she has a machine that she wears at home and it was not working last night and she is supposed to have 3 spare oxygen tanks at home and she did not have any oxygen left in any of the tanks. She came into the emergency room and her O2 sat was 70. I have placed her on O2 3 L and she has been on that for about 10 minutes and she is up to 93% I have greeted and performed a rapid initial assessment of this patient. A comprehensive ED assessment and evaluation of the patient, analysis of test results and completion of medical decision making process will be conducted by an additional ED providers. TRAVEL OUTSIDE OF THE [place] IN LAST 30 DAYS: No - Related Data Allergies/Adverse Reactions: ibuprofen [Ibuprofen] Allergy (Verified 05/27/17 09:20) ITCHING naproxen sodium [From Aleve] Allergy (Verified 05/27/17 09:20) ITCHING, PASSES OUT, SHOCK Penicillins Allergy (Verified 05/27/17 09:20) Hives theophylline anhydrous [From Theophyl] Allergy (Verified 05/27/17 09:20) Hives adhesive tape [Adhesive Tape] Adverse Reaction (Mild, Verified 05/27/17 09:20) rash, tears skin Past Medical History - Past Medical History Cardiac Medical History: Denies: Hx Coronary Artery Disease, Hx Heart Attack, Hx Hypertension Pulmonary Medical History: Reports: Hx Asthma, Hx COPD, Hx Pneumonia - 2009 Denies: Hx Bronchitis Neurological Medical History: Denies: Hx Cerebrovascular Accident, Hx Seizures Renal/ Medical History: Denies: Hx Peritoneal Dialysis GI Medical History: Reports: Hx Diverticulitis Musculoskeltal Medical History: Reports Hx Arthritis Psychiatric Medical History: Denies: Hx Depression Infectious Medical History: Past Surgical History: Reports: Hx Appendectomy, Hx Bowel Surgery, Hx Mastectomy, Hx Tubal Ligation. Denies: Hx Hysterectomy - Immunizations Hx Diphtheria, Pertussis, Tetanus Vaccination: Yes Doctor's Discharge - Discharge Referrals: DESUYO,DIANA, MD [Primary Care Provider] - Follow up as needed
--- NOTE | 2019-05-12 14:51 | ER Document Report ---
ED General - General Chief Complaint: Shortness Of Breath Stated Complaint: DIFFICULTY BREATHING Time Seen by Provider: 05/12/19 14:00 Primary Care Provider: DIANA WRAY MD [ACTIVE STAFF] - Follow up as needed Mode of Arrival: Ambulatory TRAVEL OUTSIDE OF THE [place] IN LAST 30 DAYS: No - Related Data Allergies/Adverse Reactions: ibuprofen [Ibuprofen] Allergy (Verified 05/27/17 09:20) ITCHING naproxen sodium [From Aleve] Allergy (Verified 05/27/17 09:20) ITCHING, PASSES OUT, SHOCK Penicillins Allergy (Verified 05/27/17 09:20) Hives theophylline anhydrous [From Theophyl] Allergy (Verified 05/27/17 09:20) Hives adhesive tape [Adhesive Tape] Adverse Reaction (Mild, Verified 05/27/17 09:20) rash, tears skin Past Medical History - General Information source: Patient - Social History Smoking Status: Former Smoker Chew tobacco use (# tins/day): No Frequency of alcohol use: wine daily Drug Abuse: None Family History: CAD, COPD, Hypertension Patient has suicidal ideation: No Patient has homicidal ideation: No - Past Medical History Cardiac Medical History: Denies: Hx Coronary Artery Disease, Hx Heart Attack, Hx Hypertension Pulmonary Medical History: Reports: Hx Asthma, Hx COPD, Hx Pneumonia - 2009 Denies: Hx Bronchitis Neurological Medical History: Denies: Hx Cerebrovascular Accident, Hx Seizures Renal/ Medical History: Denies: Hx Peritoneal Dialysis GI Medical History: Reports: Hx Diverticulitis Musculoskeletal Medical History: Reports Hx Arthritis Psychiatric Medical History: Denies: Hx Depression Infectious Medical History: Past Surgical History: Reports: Hx Appendectomy, Hx Bowel Surgery, Hx Mastectomy, Hx Tubal Ligation. Denies: Hx Hysterectomy - Immunizations Hx Diphtheria, Pertussis, Tetanus Vaccination: Yes Hx Pneumococcal Vaccination: 06/15/10 Physical Exam - Vital signs Vitals: Temp Pulse Resp BP Pulse Ox 97.8 F 98 29 H 118/75 70 L 05/12/19 13:46 05/12/19 13:46 05/12/19 13:46 05/12/19 13:46 05/12/19 13:46 - Notes Notes: Presents emergency department planing of shortness of breath for 1 day. She wears oxygen at night. Her machine broke yesterday morning. They contacted the company and they were unable to repair over the phone and recommended the patient use her oxygen bottles. She has been using her oxygen bottles yesterday just to be on the safe side intermittently. She does report that her sats were running 88 to 93% when she took the oxygen off . She presents today because she ran out of oxygen started having some increasing shortness of breath. Despite using her inhalers denies any fevers or cough associated with this and no chest pain nausea or vomiting. On arrival in the emergency department O2 sats reporte dly at 70 went up to 94 on 2 L. She reports that her sats normally run around 88-90 on room air she denies any shortness of breath now Past medical history significant for COPD no diabetes or hypertension Social history smoked but quit 3 weeks ago. Occasional alcohol Review of systems pertinent positives and negatives in HPI otherwise all the systems were reviewed and acutely negative PHYSICIAN EXAM -vital signs are noted triage note and note from triage reviewed GENERAL: Well-appearing, well-nourished and in ___no acute distress_and looks very comfortable_ HEAD: Atraumatic, normocephalic. EYES: Pupils equal round and reactive to light, extraocular movements intact, sclera anicteric, conjunctiva are normal. ENT: nares patent, oropharynx clear without exudates. Moist mucous membranes. NECK: supple without lymphadenopathy LUNGS: Breath sounds decreased throughout she is kyphotic there is no wheezes or respiratory distress HEART: Regular rate and rhythm without murmurs ABDOMEN: Soft, nontender, normoactive bowel sounds. EXTREMITIES: No deformity, no edema. NEUROLOGICAL: No focal neurological deficits. Moves all extremities spontaneously and on command. PSYCH: Normal mood, normal affect. SKIN: Warm, Dry, normal turgor, no rashes or lesions noted. BACK-nontender in the midline Course - Re-evaluation Re-evalutation: 05/12/19 15:51 ED patient is remained stable O2 with sats running 92-93 lungs remain clear she feels better and wants to go home and he says they were contacted by the company in the company will drop off oxygen bottles for her and family will deliver the bottle here Medical decision making patient presents with shortness of breath after running out of her oxygen. Says she uses it intermittently during the day but the family doctor had actually recommended she use it all the time. She has no complaints of shortness of breath right now feels better and wants to go home [employer] has arranged for her to get oxygen at home Dictation was done using voice recognition software. There may be some grammatical errors which are unintentional - Vital Signs Vital signs: Temp Pulse Resp BP Pulse Ox 97.8 F 98 24 H 118/75 94 05/12/19 13:46 05/12/19 13:46 05/12/19 13:55 05/12/19 13:46 05/12/19 13:55 - Diagnostic Test Radiology reviewed: Reports reviewed Discharge - Discharge Clinical Impression: Acute exacerbation of chronic obstructive pulmonary disease (COPD) Disposition: HOME, SELF-CARE Additional Instructions: Return if you get worse or unable to follow-up with your family doctor Please review the discharge instructions. They will tell you about your illness/injury, the normal course and symptoms you need to return to the e mergency department for Use your oxygen all the time Follow-up with your family doctor in 2 to 3 days Referrals: DIANA WRAY MD [ACTIVE STAFF] - Follow up as needed
--- NOTE | 2019-05-12 15:13 | RADIOLOGY REPORT (SQ) ---
EXAM DESCRIPTION: CHEST 2 VIEWS COMPLETED DATE/TIME: 05/12/2019 3:03 pm REASON FOR STUDY: Shortness of breath COMPARISON: CT chest 05/09/2019, 10/26/2017 Chest films 10/26/2017, 11/03/2015 EXAM PARAMETERS: NUMBER OF VIEWS: two views TECHNIQUE: Digital Frontal and Lateral radiographic views of the chest acquired. RADIATION DOSE: NA LIMITATIONS: none FINDINGS: LUNGS AND PLEURA: Lungs are hyperinflated and hyperlucent. No acute infiltrates. No pleural effusion or pneumothorax. MEDIASTINUM AND HILAR STRUCTURES: Stable appearance HEART AND VASCULAR STRUCTURES: No cardiomegaly. Prominent central pulmonary arteries. Tortuous unco iled thoracic aorta BONES: No acute findings. HARDWARE: None in the chest. OTHER: No other significant finding. IMPRESSION: Hyperinflation and hyperlucency from obstructive disease. No acute infiltrates. TECHNICAL DOCUMENTATION: JOB ID: [id number] [employer]- All Rights Reserved Reading location - IP/workstation name: [email or web address]
[2019-05-12 17:18] VITALS: BP 147/93
== END 2019-05-12 17:20 | disposition home or self-care (01) ==
LOC: ER 13:42
DX: J44.9 Chronic obstructive pulmonary disease, unspecified (principal); R06.02 Shortness of breath; Z87.891 Personal history of nicotine dependence
CPT/HCPCS: 71046; 99284

== ENCOUNTER 2019-06-29 11:53 | Inpatient (IN) | payer MEDICARE, BC ==
[2019-06-29] MEDS ORDERED: IPRATROPIUM/ALBUTEROL 0.5-2.5 MG/3 ML AMPUL NEB ONE (12:11)
[2019-06-29] MEDS ORDERED: RINGERS SOLUTION,LACTATED 800 ML IV ONE (12:13)
--- NOTE | 2019-06-29 12:15 | ER Document Report ---
ED Medical Screen (RME) - General Chief Complaint: Dizziness Stated Complaint: DIZZY/DEHYDRATED/BLOOD PRESSURE PROBLEM Time Seen by Provider: 06/29/19 12:05 Primary Care Provider: JE LEHMAN FNP-C [Primary Care Provider] - Follow up as needed Mode of Arrival: Wheelchair Information source: Patient Notes: Patient presents complaining of abdominal pain with exertional shortness of breath. Patient reports having a cough for the past several months. Patient was sent here from her primary doctor's office after they found her to be hypotensive with blood pressure 80s over 50s. Patient denies any fever nausea or vomiting. Patient denies any diarrhea. Patient states that food has no taste therefore she does not like to eat or drink. hx: COPD, anxiety, previous , bowel resection I have greeted and performed a rapid initial assessment of this patient. A comprehensive ED assessment and evaluation of the patient, analysis of test results and completion of the medical decision making process will be conducted by additional ED providers. TRAVEL OUTSIDE OF THE [place] IN LAST 30 DAYS: No - Related Data Allergies/Adverse Reactions: ibuprofen [Ibuprofen] Allergy (Verified 06/29/19 12:05) ITCHING naproxen sodium [From Aleve] Allergy (Verified 06/29/19 12:05) ITCHING, PASSES OUT, SHOCK Penicillins Allergy (Verified 06/29/19 12:05) Hives theophylline anhydrous [From Theophyl] Allergy (Verified 06/29/19 12:05) Hives adhesive tape [Adhesive Tape] Adverse Reaction (Mild, Verified 06/29/19 12:05) rash, tears skin Past Medical History - Past Medical History Cardiac Medical History: Denies: Hx Coronary Artery Disease, Hx Heart Attack, Hx Hypertension Pulmonary Medical History: Reports: Hx Asthma, Hx COPD, Hx Pneumonia - 2009 Denies: Hx Bronchitis Neurological Medical History: Denies: Hx Cerebrovascular Accident, Hx Seizures Renal/ Medical History: Denies: Hx Peritoneal Dialysis GI Medical History: Reports: Hx Diverticulitis Musculoskeltal Medical History: Reports Hx Arthritis Psychiatric Medical History: Denies: Hx Depression Infectious Medical History: Past Surgical History: Reports: Hx Appendectomy, Hx Bowel Surgery, Hx Mastectomy, Hx Tubal Ligation. Denies: Hx Hysterectomy - Immunizations Hx Diphtheria, Pertussis, Tetanus Vaccination: Yes Physical Exam - Vital signs Vitals: Temp Pulse Resp BP Pulse Ox 97.6 F 65 20 135/95 H 86 L 06/29/19 12:07 06/29/19 12:07 06/29/19 12:07 06/29/19 12:07 06/29/19 12:07 - General General appearance: Alert Notes: Lower abdominal tenderness, wheezing bilaterally Course - Vital Signs Vital signs: Temp Pulse Resp BP Pulse Ox 97.6 F 65 20 135/95 H 86 L 06/29/19 12:07 06/29/19 12:07 06/29/19 12:07 06/29/19 12:07 06/29/19 12:07 Doctor's Discharge - Discharge Referrals: JE LEHMAN FNP-C [Primary Care Provider] - Follow up as needed
[2019-06-29] MEDS ORDERED: DILTIAZEM HCL INJ 25 MG/5 ML VIAL IV ONE (12:38)
[2019-06-29] MEDS ORDERED: DILTIAZEM HCL/D5W 125 MG/125 ML RTUINJ IV PRN ×2 (12:38→17:20)
--- NOTE | 2019-06-29 13:13 | RADIOLOGY REPORT (SQ) ---
EXAM DESCRIPTION: ACUTE ABDOMEN SERIES COMPLETED DATE/TIME: 06/29/2019 1:01 pm REASON FOR STUDY: cough, abd pain, sob COMPARISON: 08/04/2016 NUMBER OF VIEWS: Three views. TECHNIQUE: Frontal chest, supine abdomen and upright/decubitus abdomen radiographic images acquired. LIMITATIONS: None. FINDINGS: CHEST: Chronic interstitial changes in the lung bases. FREE AIR: None. No abnormal gas collections. BOWEL GAS PATTERN: Nonobstructive pattern. No dilated loops or air fluid levels. CALCIFICATIONS: No suspicious calcifications. HARDWARE: None in the abdomen. SOFT TISSUES: No gross mass or suggestion of organomegaly. BONES: No acute fracture. No worrisome bone lesions. OTHER: No other significant finding. IMPRESSION: Chronic lung changes. Nonspecific abdomen. TECHNICAL DOCUMENTATION: JOB ID: [id number]- All Rights Reserved Reading location - IP/workstation name: [email or web address]
[2019-06-29 13:20] LABS: ABSOLUTE LYMPHOCYTES (AUTO) 0.5 10^3/uL (0.5-4.7); ABSOLUTE MONOCYTES (AUTO) 1.3 10^3/uL (0.1-1.4); ABSOLUTE NEUT (AUTO) 7.8 10^3/uL (1.7-8.2); BASOPHILS % (AUTO) 0.3 % (0-2); EOSINOPHILS % (AUTO) 0.1 % (0-6); HEMATOCRIT 44.1 % (36.0-47.0); HEMOGLOBIN 14.9 g/dL (12.0-15.5); LYMPHOCYTES % (AUTO) 5.5 % (13-45); MEAN CORPUSCULAR HEMOGLOBIN 30.5 pg (27.0-33.4); MEAN CORPUSCULAR HGB CONC 33.8 g/dL (32.0-36.0); MEAN CORPUSCULAR VOLUME 90 fl (80-97); MONOCYTES % (AUTO) 13.6 % (3-13); PLATELET COUNT 265 10^3/uL (150-450); RED CELL DISTRIBUTION WIDTH 13.9 % (11.5-14.0); SEGMENTED NEUTROPHILS % (AUTO) 80.5 % (42-78); TOTAL CELLS COUNTED % (AUTO) 100 %; WHITE BLOOD COUNT 9.7 10^3/uL (4.0-10.5)
[2019-06-29 13:41] LABS: ALBUMIN 3.6 g/dL (3.5-5.0); ALKALINE PHOSPHATASE 99 U/L (38-126); ANION GAP 8 (5-19); ASPARTATE AMINO TRANSFERASE 39 U/L (14-36); BILIRUBIN,DIRECT 0.5 mg/dL (0.0-0.4); BILIRUBIN,TOTAL 1.1 mg/dL (0.2-1.3); BLOOD UREA NITROGEN 18 mg/dL (7-20); CALCIUM 9.3 mg/dL (8.4-10.2); CARBON DIOXIDE 37 mmol/L (22-30); CHLORIDE 89 mmol/L (98-107); GLUCOSE 108 mg/dL (75-110); POTASSIUM 4.8 mmol/L (3.6-5.0); TOTAL PROTEIN 6.6 g/dL (6.3-8.2)
[2019-06-29 13:42] LABS: ALCOHOL < 10 mg/dL (NONE DETECTED)
[2019-06-29] MEDS ORDERED: NORMAL SALINE 1000 ML 1,000 ML IV ONE (14:24)
--- NOTE | 2019-06-29 14:50 | ER Document Report ---
ED General - General Chief Complaint: Dizziness Stated Complaint: DIZZY/DEHYDRATED/BLOOD PRESSURE PROBLEM Time Seen by Provider: 06/29/19 12:05 Primary Care Provider: JE LEHMAN FNP-C [Primary Care Provider] - Follow up as needed Mode of Arrival: Wheelchair TRAVEL OUTSIDE OF THE [place] IN LAST 30 DAYS: No - HPI Notes: Mrs. Palmer is an 78-year-old female with a chief complaint of loss of appetite and weakness/dizziness. She has a longstanding history of severe COPD with chronic oxygen dependency 3 L/min. She quit smoking within the last month and says as a result of this she has lost all taste for food and has not been eating and drinking well. She reports drinking 1 glass of wine daily. She was seen by her primary care physician Dr. Evelio Mike today and was noted to have orthostatic hypotension dropping to 80/60 with standing. She was sent to the ED. Upon arrival here we note that the patient is in atrial fib and she says she is not aware that she is ever had this previously. She denies any chest pain or syncope. She has had no nausea vomiting. She says her breathing feels "about the same as usual". She is adamantly opposed to hospitalization. Her who accompanies her is however of the opinion that he cannot care for her at home and has encouraged her to remain for hospitalization. - Related Data Allergies/Adverse Reactions: ibuprofen [Ibuprofen] Allergy (Verified 06/29/19 12:05) ITCHING naproxen sodium [From Aleve] Allergy (Verified 06/29/19 12:05) ITCHING, PASSES OUT, SHOCK Penicillins Allergy (Verified 06/29/19 12:05) Hives theophylline anhydrous [From Theophyl] Allergy (Verified 06/29/19 12:05) Hives adhesive tape [Adhesive Tape] Adverse Reaction (Mild, Verified 06/29/19 12:05) rash, tears skin Past Medical History - General Information source: Patient, Relative - Social History Smoking Status: Former Smoker Frequency of alcohol use: Social Drug Abuse: None Lives with: Family Family History: COPD, Hypertension Patient has suicidal ideation: No Patient has homicidal ideation: No - Past Medical History Cardiac Medical History: Denies: Hx Coronary Artery Disease, Hx Heart Attack, Hx Hypertension Pulmonary Medical History: Reports: Hx Asthma, Hx COPD, Hx Pneumonia - 2009 Denies: Hx Bronchitis Neurological Medical History: Denies: Hx Cerebrovascular Accident, Hx Seizures Renal/ Medical History: Denies: Hx Peritoneal Dialysis GI Medical History: Reports: Hx Diverticulitis Musculoskeletal Medical History: Reports Hx Arthritis Psychiatric Medical History: Denies: Hx Depression Infectious Medical History: Past Surgical History: Reports: Hx Appendectomy, Hx Bowel Surgery, Hx Mastectomy, Hx Tubal Ligation. Denies: Hx Hysterectomy - Immunizations Hx Diphtheria, Pertussis, Tetanus Vaccination: Yes Hx Pneumococcal Vaccination: 06/15/10 Review of Systems - Review of Systems Notes: Constitutional: Negative for fever. HENT: Negative for sore throat. Eyes: Negative for visual changes. Cardiovascular: Negative for chest pain. Respiratory: Negative for shortness of breath. Gastrointestinal: Negative for abdominal pain, vomiting or diarrhea. Genitourinary: Negative for dysuria. Musculoskeletal: Negative for back pain. Skin: Negative for rash. Neurological: Negative for headaches, focal weakness or numbness. 10 point ROS negative except as marked above and in HPI. Physical Exam - Vital signs Vitals: Temp Pulse Resp BP Pulse Ox 97.6 F 65 20 135/95 H 86 L 06/29/19 12:07 06/29/19 12:07 06/29/19 12:07 06/29/19 12:07 06/29/19 12:07 - Notes Notes: GENERAL: Frail elderly female who exhibits advanced pulmonary cachexia. SKIN: Good turgor no rashes. Chronic ecchymoses of all extremities. HEAD: Bitemporal wasting. Atraumatic. EYES: PERRLA. EOMI. Conjunctivae and sclerae clear. EARS: CANALS AND TMS CLEAR. NOSE: CLEAR. MOUTH: Moist mucosa. Good dentition. No stridor or edema. No drooling. NECK: Supple. No masses or thyromegaly. No adenopathy. Carotids 2+ without bruits. No JVD. BACK: Mild dorsal kyphosis. Symmetrical without tenderness. CHEST: Respirations unlabored. Breath sounds distant, clear and symmetrical. HEART: Tachycardic irregularly irregular rhythm. No murmur gallop or rub. ABDOMEN: Soft nontender without masses, organomegaly or rebound. Bowel sounds normally active. No bruits. GENITALIA: Deferred. EXTREMITIES: No edema. Advanced degenerative changes of interphalangeal joints of both hands. No calf tenderness. Cap refill less than 1.5 seconds. Dorsalis pedis and posterior tibial pulses 3+ and symmetrical. NEUROLOGICAL: GCS 15. Alert and oriented x3. Fluent speech. Cranial nerves II through XII intact. Sensorimotor and cerebellar normal. Normal tone. PSYCHIATRIC: Appropriate affect. Course - Vital Signs Vital signs: Temp Pulse Resp BP Pulse Ox 97.6 F 65 28 H 134/82 H 100 06/29/19 12:07 06/29/19 12:07 06/29/19 14:01 06/29/19 14:01 06/29/19 14:01 - Laboratory Result Diagrams: 06/29/19 12:55 06/29/19 12:55 Laboratory results interpreted by me: 06/29/19 06/29/19 12:55 12:55 Lymph % (Auto) 5.5 L Ogle % (Auto) 13.6 H Seg Neutrophils % 80.5 H Sodium 134.3 L Chloride 89 L Carbon Dioxide 37 H Creatinine 0.45 L Direct Bilirubin 0.5 H AST 39 H Discharge - Discharge Clinical Impression: Atrial fibrillation with rapid ventricular response, Dehydration COPD (chronic obstructive pulmonary disease) Qualifiers: COPD type: unspecified COPD Qualified Code(s): J44.9 - Chronic obstructive pulmonary disease, unspecified Disposition: ADMITTED INPATIENT Admitting Provider: Ana Cristina (Hospitalist) Unit Admitted: IMCU Referrals: JE LEHMAN FNP-C [Primary Care Provider] - Follow up as needed
[2019-06-29] MEDS ORDERED: OLOPATADINE HCL 0.1% OPH SOLN 5 ML OU PRN (17:21)
[2019-06-29] MEDS ORDERED: IPRATROPIUM/ALBUTEROL 0.5-2.5 MG/3 ML AMPUL NEB PRN (17:22)
[2019-06-29] MEDS ORDERED: NORMAL SALINE 1000 ML 1,000 ML IV PRN (17:25)
[2019-06-29] MEDS ORDERED: MONTELUKAST SODIUM 10 MG TABLET PO SCH (18:00)
--- NOTE | 2019-06-29 18:23 | PDOC H&P ---
History of Present Illness Admission Date/PCP: 06/29/19 15:49 ALEXANDRU MASON-Darcy Patient complains of: poor appetite History of Present Illness: AXEL NORMAN is a 78 year old female with a past medical history of chronic hypoxemic respiratory failure, COPD on 3 L of home O2, history of spontaneous pneumothorax, and anxiety who was sent to the ER by her PCP. Patient and has been she has been having poor appetite in the past few weeks. She says she has not been really eating a lot of drinking a lot. She reported mild vague abdominal discomfort. She was seen by her PCP today and she was told she little dehydrated. She had an orthostatic vital signs done on the PCPs clinic and she was found to be orthostatic. She denies syncope, chest pain or shortness of breath. In the ER, she was noted to be in A. fib with RVR with the highest heart rate in the 120. She denies prior history of A. fib but her says that she had an episode of A. fib before and was seen by a breakfast and room attendant at [place], [place] and was told she does not need any medications or intervention for it. Patient initially refused to be admitted ad after some time reluctantly agreed to her 's bidding to be admitted tonight. Past Medical History Cardiac Medical History: Denies: Coronary Artery Disease, Myocardial Infarction, Hypertension Pulmonary Medical History: Reports: Asthma, Chronic Obstructive Pulmonary Disease (COPD), Pneumonia - 2009 Denies: Bronchitis Neurological Medical History: Denies: Seizures GI Medical History: Reports: Diverticulitis Musculoskeltal Medical History: Reports: Arthritis Psychiatric Medical History: Denies: Depression Hematology: Denies: Anemia, Sickle Cell Disease Past Surgical History Past Surgical History: Reports: Appendectomy, Mastectomy, Tubal Ligation Denies: Amputation, Hysterectomy Social History Lives with: Family Smoking Status: Former Smoker Frequency of Alcohol Use: Occasional Hx Recreational Drug Use: No Drugs: None Hx Prescription Drug Abuse: No Family History Family History: COPD, Hypertension Parental Family History Reviewed: Yes - no premature CAD Children Family History Reviewed: No Sibling(s) Family History Reviewed.: No Medication/Allergy Home Medications: Albuterol Sulfate [Proventil 0.5% Neb 2.5 mg/0.5 ml Vial.neb] 2.5 mg NEB RTBID 06/29/19 Anastrozole [Arimidex 1 mg Tablet] 1 mg PO QAM 06/29/19 Calcium Carbonate/Vitamin D3 [Calcium 500-Vit D3 600 Caplet] 1 each PO DAILY 06/29/19 Clonazepam [Klonopin] 0.5 mg PO QHS 06/29/19 Epinephrine [Epipen 2-Nikolas] 0.3 mg IM ASDIR PRN 06/29/19 Fluticasone/Salmeterol [Advair 250-50 Diskus 14 Dose/Diskus] 1 puff IH Q12 06/29/19 Gabapentin [Neurontin 300 mg Capsule] 300 mg PO Q12 06/29/19 Montelukast Sodium [Singulair 10 mg Tablet] 10 mg PO DAILY 06/29/19 Multivitamin [Daily Multiple Vitamin] 1 each PO DAILY 06/29/19 Olopatadine HCl [Patanol 0.1% Oph Soln 5 Ml Bottle] 1 drop OU DAILYP PRN 06/29/19 Sertraline HCl [Zoloft] 25 mg PO DAILY 06/29/19 Tiotropium [place] [Spiriva Respimat] 2 puff IH QAM 06/29/19 Varenicline Tartrate [Chantix 1 Mg Tablet] 1 mg PO BID 06/29/19 Allergies/Adverse Reactions: ibuprofen [Ibuprofen] Allergy (Verified 06/29/19 12:05) ITCHING naproxen sodium [From Aleve] Allergy (Verified 06/29/19 12:05) ITCHING, PASSES OUT, SHOCK Penicillins Allergy (Verified 06/29/19 12:05) Hives theophylline anhydrous [From Theophyl] Allergy (Verified 06/29/19 12:05) Hives adhesive tape [Adhesive Tape] Adverse Reaction (Mild, Verified 06/29/19 12:05) rash, tears skin Review of Systems All systems: reviewed and no additional remarkable complaints except as stated - as mentioned in HPI Physical Exam Vital Signs: Temp Pulse Resp BP Pulse Ox 97.6 F 65 18 115/77 99 06/29/19 12:07 06/29/19 12:07 06/29/19 16:31 06/29/19 16:31 06/29/19 16:31 Intake & Output 06/28/19 06/29/19 06/30/19 06:59 06:59 06:59 Intake Total 800 Balance 800 Weight 85 lb General appearance: PRESENT: no acute distress, well-developed, well-nourished Head exam: PRESENT: atraumatic, normocephalic Eye exam: PRESENT: conjunctiva pink, EOMI, PERRLA. ABSENT: scleral icterus Ear exam: PRESENT: normal external ear exam Mouth exam: PRESENT: moist, tongue midline Neck exam: ABSENT: carotid bruit, JVD, lymphadenopathy, thyromegaly Respiratory exam: PRESENT: clear to auscultation henri. ABSENT: rales, rhonchi, wheezes Cardiovascular exam: PRESENT: irregular rhythm, tachycardia Pulses: PRESENT: normal dorsalis pedis pul GI/Abdominal exam: PRESENT: normal bowel sounds, soft. ABSENT: distended, guarding, mass, organolmegaly, rebound, tenderness Rectal exam: PRESENT: deferred Extremities exam: PRESENT: full ROM. ABSENT: calf tenderness, clubbing, pedal edema Neurological exam: PRESENT: alert, awake, oriented to person, oriented to place, oriented to time, oriented to situation, CN II-XII grossly intact. ABSENT: motor sensory deficit Results Laboratory Results: 06/29/19 12:55 06/29/19 12:55 06/29/19 06/29/19 06/29/19 12:55 12:55 12:55 WBC 9.7 RBC 4.90 Hgb 14.9 Hct 44.1 MCV 90 MCH 30.5 MCHC 33.8 RDW 13.9 Plt Count 265 Seg Neutrophils % 80.5 H Sodium 134.3 L Potassium 4.8 Chloride 89 L Carbon Dioxide 37 H Anion Gap 8 BUN 18 Creatinine 0.45 L Est GFR ( Amer) > 60 Glucose 108 Calcium 9.3 Magnesium 2.2 Total Bilirubin 1.1 AST 39 H Alkaline Phosphatase 99 Total Protein 6.6 Albumin 3.6 TSH 1.15 06/29/19 12:55 Troponin I < 0.012 Impressions: Acute Abdomen Series 06/29/19 12:12 IMPRESSION: Chronic lung changes. Nonspecific abdomen. Assessment and Plan - Diagnosis (1) Atrial fibrillation with rapid ventricular response Is this a current diagnosis for this admission?: Yes Plan: Currently on Cardizem. Heart rate has been controlled in the high 90s to low 100s. TSH normal. Will check a d-dimer as well. We discussed in length the possible causes of A. fib and options of treatment. Discussed anticoagulation including risk and benefits but patient is undecided at the moment about initiating anticoagulation. (2) Dehydration Is this a current diagnosis for this admission?: Yes Plan: She received a liter of IV fluid bolus. We will continue IV fluids. (3) COPD (chronic obstructive pulmonary disease) Qualifiers: COPD type: unspecified COPD Qualified Code(s): J44.9 - Chronic obstructive pulmonary disease, unspecified Is this a current diagnosis for this admission?: Yes Plan: Not in exacerbation. (4) Anxiety Is this a current diagnosis for this admission?: Yes - Time Time Spent with patient: 25-34 minutes
[2019-06-29 18:27] LABS: APPEARANCE,URINE CLEAR; BILIRUBIN,URINE NEGATIVE (NEGATIVE); COLOR,URINE AMBER; GLUCOSE, URINE 150 mg/dL (NEGATIVE); KETONES,URINE 20 mg/dL (NEGATIVE); LEUKOCYTE ESTERASE,URINE NEGATIVE (NEGATIVE); NITRITE,URINE NEGATIVE (NEGATIVE); PROTEIN,URINE 30 mg/dL (NEGATIVE); URINE SPECIFIC GRAVITY 1.026
--- NOTE | 2019-06-29 19:13 | PDOC CONSULTATION ---
Consultation Consult Date: 06/29/19 Provider Consulted: KONG NEEYL Consult reason:: Atrial fibrillation History of Present Illness Admission Date/PCP: 06/29/19 15:49 HAZEL MASON Patient complains of: Dizziness History of Present Illness: AXEL NORMAN is a 78 year old female with medical history significant for recurrent pneumothorax. She has had chest tube placement in the past. She also has anxiety issues. Lately she appears to have lost considerable amount of weight and looks quite thin. She presented with atrial fibrillation rapid ventricular response. In my conversation with the patient and she has had episodes of atrial fibrillation previously. At least all of these episodes happened when she was undergoing surgical procedures. 1 happened during a VATS procedure in [place]. She has never been cardioverted. There is no report of systemic hypertension, congestive heart failure, prior stroke or diabetes mellitus. There is no report of peripheral vascular disease Patient has smoked cigarettes in the remote past. Presently does not smoke cigarettes. No familial illnesses. Past Medical History Cardiac Medical History: Denies: Coronary Artery Disease, Myocardial Infarction, Hypertension Pulmonary Medical History: Reports: Asthma, Chronic Obstructive Pulmonary Disease (COPD), Pneumonia - 2009 Denies: Bronchitis Neurological Medical History: Denies: Seizures GI Medical History: Reports: Diverticulitis Musculoskeltal Medical History: Reports: Arthritis Psychiatric Medical History: Denies: Depression Hematology: Denies: Anemia, Sickle Cell Disease Past Surgical History Past Surgical History: Reports: Appendectomy, Mastectomy, Tubal Ligation Denies: Amputation, Hysterectomy Social History Lives with: Family Smoking Status: Former Smoker Frequency of Alcohol Use: Occasional Hx Recreational Drug Use: No Drugs: None Hx Prescription Drug Abuse: No Family History Family History: COPD, Hypertension Parental Family History Reviewed: No Children Family History Reviewed: NA Sibling(s) Family History Reviewed.: NA Medication/Allergy Home Medications: Albuterol Sulfate [Proventil 0.5% Neb 2.5 mg/0.5 ml Vial.neb] 2.5 mg NEB RTBID 06/29/19 Anastrozole [Arimidex 1 mg Tablet] 1 mg PO QAM 06/29/19 Calcium Carbonate/Vitamin D3 [Calcium 500-Vit D3 600 Caplet] 1 each PO DAILY 06/29/19 Clonazepam [Klonopin] 0.5 mg PO QHS 06/29/19 Epinephrine [Epipen 2-Nikolas] 0.3 mg IM ASDIR PRN 06/29/19 Fluticasone/Salmeterol [Advair 250-50 Diskus 14 Dose/Diskus] 1 puff IH Q12 06/29/19 Gabapentin [Neurontin 300 mg Capsule] 300 mg PO Q12 06/29/19 Montelukast Sodium [Singulair 10 mg Tablet] 10 mg PO DAILY 06/29/19 Multivitamin [Daily Multiple Vitamin] 1 each PO DAILY 06/29/19 Olopatadine HCl [Patanol 0.1% Oph Soln 5 Ml Bottle] 1 drop OU DAILYP PRN 06/29/19 Sertraline HCl [Zoloft] 25 mg PO DAILY 06/29/19 Tiotropium [place] [Spiriva Respimat] 2 puff IH QAM 06/29/19 Varenicline Tartrate [Chantix 1 Mg Tablet] 1 mg PO BID 06/29/19 Allergies/Adverse Reactions: ibuprofen [Ibuprofen] Allergy (Verified 06/29/19 12:05) ITCHING naproxen sodium [From Aleve] Allergy (Verified 06/29/19 12:05) ITCHING, PASSES OUT, SHOCK Penicillins Allergy (Verified 06/29/19 12:05) Hives theophylline anhydrous [From Theophyl] Allergy (Verified 06/29/19 12:05) Hives adhesive tape [Adhesive Tape] Adverse Reaction (Mild, Verified 06/29/19 12:05) rash, tears skin Review of Systems Constitutional: PRESENT: fatigue, weight loss Neurological: PRESENT: dizziness Physical Exam Vital Signs: Temp Pulse Resp BP Pulse Ox 97.6 F 65 27 H 117/92 H 100 06/29/19 12:07 06/29/19 12:07 06/29/19 18:01 06/29/19 18:01 06/29/19 18:01 Intake & Output 06/28/19 06/29/19 06/30/19 06:59 06:59 06:59 Intake Total 1219 Balance 1219 Weight 38.555 kg General appearance: PRESENT: thin Head exam: PRESENT: atraumatic, normocephalic Eye exam: PRESENT: EOMI Mouth exam: PRESENT: dry mucosa Respiratory exam: PRESENT: decreased breath sounds, unlabored, wheezes Cardiovascular exam: PRESENT: irregular rhythm, +S1, +S2 Pulses: PRESENT: normal radial pulses GI/Abdominal exam: PRESENT: soft Rectal exam: PRESENT: deferred Neurological exam: PRESENT: alert, awake, oriented to person, oriented to place, oriented to time, oriented to situation Psychiatric exam: PRESENT: appropriate affect Skin exam: PRESENT: dry, intact, normal color Results Laboratory Results: 06/29/19 12:55 06/29/19 12:55 06/29/19 06/29/19 06/29/19 12:55 12:55 12:55 WBC 9.7 RBC 4.90 Hgb 14.9 Hct 44.1 MCV 90 MCH 30.5 MCHC 33.8 RDW 13.9 Plt Count 265 Seg Neutrophils % 80.5 H Sodium 134.3 L Potassium 4.8 Chloride 89 L Carbon Dioxide 37 H Anion Gap 8 BUN 18 Creatinine 0.45 L Est GFR ( Amer) > 60 Glucose 108 Calcium 9.3 Magnesium 2.2 Total Bilirubin 1.1 AST 39 H Alkaline Phosphatase 99 Total Protein 6.6 Albumin 3.6 TSH 1.15 Urine Color Urine Appearance Urine pH Ur Specific [place] Urine Protein Urine Glucose (UA) Urine Ketones Urine Blood Urine Nitrite Ur Leukocyte Esterase Urine WBC (Auto) Urine RBC (Auto) 06/29/19 17:30 WBC RBC Hgb Hct MCV MCH MCHC RDW Plt Count Seg Neutrophils % Sodium Potassium Chloride Carbon Dioxide Anion Gap BUN Creatinine Est GFR ( Amer) Glucose Calcium Magnesium Total Bilirubin AST Alkaline Phosphatase Total Protein Albumin TSH Urine Color [place] Urine Appearance CLEAR Urine pH 6.0 Ur Specific [place] 1.026 Urine Protein 30 H Urine Glucose (UA) 150 H Urine Ketones 20 H Urine Blood NEGATIVE Urine Nitrite NEGATIVE Ur Leukocyte Esterase NEGATIVE Urine WBC (Auto) 6 Urine RBC (Auto) 1 06/29/19 12:55 Troponin I < 0.012 EKG Comments: Twelve-lead EKG reviewed independently by me Atrial fibrillation with rapid ventricular response, left ventricular hypertrophy Telemetry shows atrial fibrillation rapid ventricular response. Impressions: Acute Abdomen Series 06/29/19 12:12 IMPRESSION: Chronic lung changes. Nonspecific abdomen. Status: Imported from PACS - Hyperinflated lungs hyperlucency. Emphysema Assessment & Plan - Diagnosis (1) Atrial fibrillation with rapid ventricular response Is this a current diagnosis for this admission?: Yes Plan: Atrial fibrillation rapid ventricular response. Patient is symptomatic Agree with rate control measures. Agree with intravenous diltiazem Probably switch over to oral beta-blockers in the next 24 hours if the rate is controlled Female sex and increased age at 78 years of age. Increased risk of stroke. Given recurrent episodes of atrial fibrillation and in this setting unprovoked would recommend systemic anticoagulation Apixaban 2.5 mg twice daily can be started. If patient continues to be in atrial fibrillation we can pursue transesophageal echocardiogram to exclude left atrial thrombi followed by direct current cardiov ersion. Based on patient preference this can be done during this hospital stay or can be arranged as an outpatient if she is rate controlled at the time of discharge. We will review transthoracic echocardiogram.
[2019-06-29] MEDS: VARENICLINE TARTRATE 1 MG TABLET PO SCH (19:29)
[2019-06-29] MEDS ORDERED: ALBUTEROL SULFATE 5 MG PO SCH (20:00)
[2019-06-29] MEDS ORDERED: ALBUTEROL SULFATE 0.083% NEB 2.5 MG/3 ML AMPUL NEB SCH (20:00)
--- NOTE | 2019-06-29 21:50 | RADIOLOGY REPORT (SQ) ---
EXAM DESCRIPTION: NM LUNG VENTILATION PERFUSION COMPLETED DATE/TME: 06/29/2019 18:13 CLINICAL HISTORY: 78 years, Female, elevated D-dimer COMPARISON: None. RADIONUCLIDE AND DOSE: 32.4 mCi total dose of technetium 99m labeled DTPA radioaerosol. 5.37 mCi of technetium 99m labeled MAA. ADDITIONAL DRUGS AND DOSES: TECHNIQUE: Anterior and posterior imaging only. Patient unable to cooperate with additional imaging due to reported anxiety LIMITATIONS: Anterior and posterior imaging only FINDINGS: Significant clumping on ventilation imaging. Perfusion imaging is homogeneous. No segmental or subsegmental defects. No plain radiography obtained for correlation. IMPRESSION: Examination limited due to patient's inability to cooperate. Best possible images were obtained. Low probability for pulmonary embolus copyright 2011 [employer]- All Rights Reserved
[2019-06-29] MEDS ORDERED: CLONAZEPAM 1 MG TABLET PO SCH (22:00)
[2019-06-29] MEDS ORDERED: (PENDING PHARMACY ID) (Clonazepam [Klonopin] 0.5 MG) PO SCH (22:00)
[2019-06-29] MEDS ORDERED: (PENDING PHARMACY ID) (Fluticasone/Salmeterol 1 PUFF) IH SCH (22:00)
[2019-06-29] MEDS ORDERED: HEPARIN SOD (PORCINE) 5,000 UNIT/ML 1 ML VIAL SUBCUT SCH (22:00)
[2019-06-29] MEDS: METOPROLOL TARTRATE 25 MG TABLET PO SCH (22:56)
[2019-06-29] MEDS: GABAPENTIN 300 MG CAPSULE PO SCH (22:58)
--- NOTE | 2019-06-30 01:01 | EKG REPORT ---
SEVERITY:- ABNORMAL ECG - ATRIAL FIBRILLATION, V-RATE [id number] MULTIFORM VENTRICULAR PREMATURE COMPLEXES PROBABLE LEFT VENTRICULAR HYPERTROPHY : Confirmed by: Alysa Leyva MD 30-Jun-2019 01:01:22
--- NOTE | 2019-06-30 01:01 | EKG REPORT ---
SEVERITY:- ABNORMAL ECG - ATRIAL FIBRILLATION, V-RATE 96-130 PAIRED VENTRICULAR PREMATURE COMPLEXES CONSIDER LEFT VENTRICULAR HYPERTROPHY : Confirmed by: Alysa Leyva MD 30-Jun-2019 01:01:18
[2019-06-30] MEDS ORDERED: UMECLIDINIUM BROMIDE 62.5 MCG/DOSE IH SCH (08:00)
[2019-06-30] MEDS ORDERED: ANASTROZOLE 1 MG TABLET PO SCH (08:00)
[2019-06-30] MEDS ORDERED: (PENDING PHARMACY ID) (Tiotropium Bromide [Spiriva Respimat] 2 PUFF) IH SCH (08:00)
[2019-06-30] MEDS: GABAPENTIN 300 MG CAPSULE PO SCH (09:28)
[2019-06-30] MEDS: METOPROLOL TARTRATE 25 MG TABLET PO SCH (09:29)
[2019-06-30] MEDS: VARENICLINE TARTRATE 1 MG TABLET PO SCH (09:30)
[2019-06-30] MEDS ORDERED: VITAMIN D3 PO SCH (10:00)
[2019-06-30] MEDS ORDERED: CALCIUM CARBONATE PO SCH (10:00)
[2019-06-30] MEDS ORDERED: APIXABAN 2.5 MG TABLET PO SCH (10:00)
[2019-06-30] MEDS ORDERED: ALBUTEROL SULFATE 0.083% NEB 2.5 MG/3 ML AMPUL NEB SCH (10:00)
[2019-06-30] MEDS ORDERED: FLUTICASONE/VILANTEROL 200-25 MCG/DOSE IH SCH (10:00)
[2019-06-30] MEDS ORDERED: MULTIVITAMIN TABLET PO SCH (10:00)
[2019-06-30] MEDS ORDERED: [UNRECOGNIZED DRUG - OTHER] PO SCH (10:00)
[2019-06-30] MEDS ORDERED: SERTRALINE HCL 50 MG TABLET PO SCH (10:00)
[2019-06-30] MEDS ORDERED: (PENDING PHARMACY ID) (Sertraline Hcl [Zoloft] 25 MG) PO SCH (10:00)
[2019-06-30] MEDS ORDERED: CALCIUM CARBONATE 250 MG/VITAMIN D3 125 UNIT TABLET PO SCH (10:00)
[2019-06-30] MEDS ORDERED: ASPIRIN 81 MG TABLET, CHEWABLE PO SCH (10:00)
[2019-06-30] MEDS ORDERED: METOPROLOL TARTRATE 25 MG TABLET PO ONE (11:15)
--- NOTE | 2019-06-30 13:34 | PDOC PROGRESS REPORT ---
Subjective Progress Note for:: 06/30/19 Subjective:: Patient seen and examined. Resting in bed. Admits to feeling better. Telemetry with heart rate in the low 100s. Continues to be in atrial fibrillation. She just had breakfast. Reason For Visit: AFIB W/RVR Physical Exam Vital Signs: Temp Pulse Resp BP Pulse Ox 98.2 F 102 H 18 149/82 H 99 06/30/19 08:52 06/30/19 12:42 06/30/19 09:43 06/30/19 12:42 06/30/19 09:43 Intake & Output 06/29/19 06/30/19 07/01/19 06:59 06:59 06:59 Intake Total 1419 Output Total 1 Balance 1418 Weight 41.3 kg General appearance: PRESENT: no acute distress, cooperative, thin Head exam: PRESENT: atraumatic, normocephalic Eye exam: PRESENT: EOMI Respiratory exam: PRESENT: decreased breath sounds, symmetrical, unlabored - Decreased breath sounds on the right chest base. Cardiovascular exam: PRESENT: irregular rhythm, +S1, +S2 GI/Abdominal exam: PRESENT: soft Rectal exam: PRESENT: deferred Musculoskeletal exam: PRESENT: ambulatory, normal inspection Neurological exam: PRESENT: alert, awake, oriented to person, oriented to place, oriented to time, oriented to situation Psychiatric exam: PRESENT: appropriate affect Skin exam: PRESENT: dry, intact Results Laboratory Results: 06/29/19 12:55 06/29/19 12:55 06/29/19 06/29/19 06/29/19 12:55 12:55 17:30 Sodium 134.3 L Potassium 4.8 Chloride 89 L Carbon Dioxide 37 H Anion Gap 8 BUN 18 Creatinine 0.45 L Est GFR ( Amer) > 60 Glucose 108 Calcium 9.3 Magnesium 2.2 Total Bilirubin 1.1 AST 39 H Alkaline Phosphatase 99 Total Protein 6.6 Albumin 3.6 TSH 1.15 Urine Color [place] Urine Appearance CLEAR Urine pH 6.0 Ur Specific [place] 1.026 Urine Protein 30 H Urine Glucose (UA) 150 H Urine Ketones 20 H Urine Blood NEGATIVE Urine Nitrite NEGATIVE Ur Leukocyte Esterase NEGATIVE Urine WBC (Auto) 6 Urine RBC (Auto) 1 06/29/19 12:55 Troponin I < 0.012 EKG Comments: Shows atrial fibrillation with ventricular rate in the low 100s. Impressions: Acute Abdomen Series 06/29/19 12:12 IMPRESSION: Chronic lung changes. Nonspecific abdomen. Lung Scan-VQ NM 06/29/19 18:13 IMPRESSION: Examination limited due to patient's inability to cooperate. Best possible images were obtained. Low probability for pulmonary embolus copyright 2011 [email or web address]- All Rights Reserved Assessment & Plan - Diagnosis (1) Atrial fibrillation with rapid ventricular response Is this a current diagnosis for this admission?: Yes Plan: Better rate controlled on diltiazem intravenously Recommend oral beta-blockade Continue systemic anticoagulation with apixaban 2.5 mg twice daily Based on patient preference we can proceed with cardioversion. Would recommend cardioversion since this is relatively new onset and other episodes appear to have been provoked. Unfortunately patient ate breakfast today will be difficult to arrange today
[2019-06-30 16:38] VITALS: BP 135/95
--- NOTE | 2019-06-30 18:54 | PDOC DISCHARGE SUMMARY ---
Impression - Admit/DC Date/PCP Admission Date/Primary Care Provider: 06/30/19 13:51 ALEXANDRU MASON-Darcy Discharge Date: 06/30/19 - Discharge Diagnosis (1) Atrial fibrillation with rapid ventricular response Is this a current diagnosis for this admission?: Yes (2) Dehydration Is this a current diagnosis for this admission?: Yes (3) COPD (chronic obstructive pulmonary disease) Is this a current diagnosis for this admission?: Yes (4) Anxiety Is this a current diagnosis for this admission?: Yes - Additional Information Resuscitation Status: Full Code Discharge Activity: Activity As Tolerated, Balance Activity w/Rest, Slowly Increase Activity Referrals: JANEEN CARLOS MD [ACTIVE STAFF] - 07/07/19 10:30 am EMILIANO ISRAEL MD [NO LOCAL MD] - 07/13/19 2:30 pm Prescriptions: Apixaban [Eliquis 2.5 mg Tablet] 2.5 mg PO BID #60 tablet Metoprolol Tartrate [Lopressor 25 mg Tablet] 25 mg PO Q12 #60 tablet Home Medications: Albuterol Sulfate [Proventil 0.5% Neb 2.5 mg/0.5 ml Vial.neb] 2.5 mg NEB RTBID 06/29/19 Anastrozole [Arimidex 1 mg Tablet] 1 mg PO QAM 06/29/19 Calcium Carbonate/Vitamin D3 [Calcium 500-Vit D3 600 Caplet] 1 each PO DAILY 06/29/19 Clonazepam [Klonopin] 0.5 mg PO QHS 06/29/19 Epinephrine [Epipen 2-Nikolas] 0.3 mg IM ASDIR PRN 06/29/19 Fluticasone/Salmeterol [Advair 250-50 Diskus 14 Dose/Diskus] 1 puff IH Q12 06/29 Gabapentin [Neurontin 300 mg Capsule] 300 mg PO Q12 06/29/19 Montelukast Sodium [Singulair 10 mg Tablet] 10 mg PO DAILY 06/29/19 Multivitamin [Daily Multiple Vitamin] 1 each PO DAILY 06/29/19 Olopatadine HCl [Patanol 0.1% Oph Soln 5 ml] 1 drop OU DAILYP PRN 06/29/19 Sertraline HCl [Zoloft] 25 mg PO DAILY 06/29/19 Tiotropium [place] [Spiriva Respimat] 2 puff IH QAM 06/29/19 Varenicline Tartrate [Chantix 1 mg Tablet] 1 mg PO BID 06/29/19 Apixaban [Eliquis 2.5 mg Tablet] 2.5 mg PO BID #60 tablet 06/30/19 Metoprolol Tartrate [Lopressor 25 mg Tablet] 25 mg PO Q12 #60 tablet 06/30/19 History of Present Illiness History of Present Illness: AXEL NORMAN is a 78 year old female with a past medical history of chronic hypoxemic respiratory failure, COPD on 3 L of home O2, history of spontaneous pneumothorax, and anxiety who was sent to the ER by her PCP. Patient and has been she has been having poor appetite in the past few weeks. She says she has not been really eating a lot of drinking a lot. She reported mild vague abdominal discomfort. She was seen by her PCP today and she was told she little dehydrated. She had an orthostatic vital signs done on the PCPs clinic and she was found to be orthostatic. She denies syncope, chest pain or shortness of breath. In the ER, she was noted to be in A. fib with RVR with the highest heart rate in the 120. She denies prior history of A. fib but her says that she had an episode of A. fib before and was seen by a classifying machine operator at [place], a Dr. Sidney Israel and was told she does not need any medications or intervention for it. Patient initially refused to be admitted ad after some time reluctantly agreed to her 's bidding to be admitted [facility]. Hospital Course Hospital Course: Patient was admitted for A. fib with RVR. She was started on Cardizem drip. She was also given IV fluids as she did appear dehydrated. She was also evaluated by cardiology. She reports she has been having poor appetite and weight loss. She has history of breast cancer but is in remission. She says she closely follows up with Dr. Vargas and has an upcoming follow-up with her as well. She was promptly weaned off Cardizem drip. She was started on Lopressor. She was also started on Eliquis after discussing risk and benefits of antico agulation. Her A. fib was rate controlled with p.o. Lopressor. She will closely follow-up with Dr. Graff as outpatient to consider possible DC cardioversion. Physical Exam Vital Signs: Temp Pulse Resp BP Pulse Ox 98.2 F 78 18 135/95 H 99 06/30/19 16:30 06/30/19 16:30 06/30/19 16:30 06/30/19 16:30 06/30/19 16:30 Intake & Output 06/29/19 06/30/19 07/01/19 06:59 06:59 06:59 Intake Total 1419 870 Output Total 1 982 Balance 1418 -112 Weight 91 lb 0.815 oz General appearance: PRESENT: no acute distress, thin Head exam: PRESENT: atraumatic, normocephalic Eye exam: PRESENT: conjunctiva pink, EOMI, PERRLA. ABSENT: scleral icterus Ear exam: PRESENT: normal external ear exam Mouth exam: PRESENT: moist, tongue midline Neck exam: ABSENT: carotid bruit, JVD, lymphadenopathy, thyromegaly Respiratory exam: PRESENT: clear to auscultation henri. ABSENT: rales, rhonchi, wheezes Cardiovascular exam: PRESENT: irregular rhythm. ABSENT: diastolic murmur, rubs, systolic murmur Pulses: PRESENT: normal dorsalis pedis pul GI/Abdominal exam: PRESENT: normal bowel sounds, soft. ABSENT: distended, guarding, mass, organolmegaly, rebound, tenderness Rectal exam: PRESENT: deferred Extremities exam: PRESENT: full ROM. ABSENT: calf tenderness, clubbing, pedal edema Neurological exam: PRESENT: alert, awake, oriented to person, oriented to place, oriented to time, oriented to situation, CN II-XII grossly intact. ABSENT: motor sensory deficit Results Laboratory Results: WBC 9.7 10^3/uL (4.0-10.5) 06/29/19 12:55 RBC 4.90 10^6/uL (3.72-5.28) 06/29/19 12:55 Hgb 14.9 g/dL (12.0-15.5) 06/29/19 12:55 Hct 44.1 % (36.0-47.0) 06/29/19 12:55 MCV 90 fl (80-97) 06/29/19 12:55 MCH 30.5 pg (27.0-33.4) 06/29/19 12:55 MCHC 33.8 g/dL (32.0-36.0) 06/29/19 12:55 RDW 13.9 % (11.5-14.0) 06/29/19 12:55 Plt Count 265 10^3/uL (150-450) 06/29/19 12:55 Lymph % (Auto) 5.5 % (13-45) L 06/29/19 12:55 [place] % (Auto) 13.6 % (3-13) H 06/29/19 12:55 Eos % (Auto) 0.1 % (0-6) 06/29/19 12:55 Baso % (Auto) 0.3 % (0-2) 06/29/19 12:55 Absolute Neuts (auto) 7.8 10^3/uL (1.7-8.2) 06/29/19 12:55 Absolute Lymphs (auto) 0.5 10^3/uL (0.5-4.7) 06/29/19 12:55 Absolute Monos (auto) 1.3 10^3/uL (0.1-1.4) 06/29/19 12:55 Absolute Eos (auto) 0.0 10^3/uL (0.0-0.6) 06/29/19 12:55 Absolute Basos (auto) 0.0 10^3/uL (0.0-0.2) 06/29/19 12:55 Seg Neutrophils % 80.5 % (42-78) H 06/29/19 12:55 D-Dimer 3.39 ug/mL (0.00-0.50) H 06/29/19 12:55 Sodium 134.3 mmol/L (137-145) L 06/29/19 12:55 Potassium 4.8 mmol/L (3.6-5.0) 06/29/19 12:55 Chloride 89 mmol/L (98-107) L 06/29/19 12:55 Carbon Dioxide 37 mmol/L (22-30) H 06/29/19 12:55 Anion Gap 8 (5-19) 06/29/19 12:55 BUN 18 mg/dL (7-20) 06/29/19 12:55 Creatinine 0.45 mg/dL (0.52-1.25) L 06/29/19 12:55 Est GFR ( Amer) > 60 (>60) 06/29/19 12:55 Est GFR (MDRD) Non-Af > 60 (>60) 06/29/19 12:55 Glucose 108 mg/dL (75-110) 06/29/19 12:55 Calcium 9.3 mg/dL (8.4-10.2) 06/29/19 12:55 Magnesium 2.2 mg/dL (1.6-2.3) 06/29/19 12:55 Total Bilirubin 1.1 mg/dL (0.2-1.3) 06/29/19 12:55 Direct Bilirubin 0.5 mg/dL (0.0-0.4) H 06/29/19 12:55 Neonat Total Bilirubin Not Reportable 06/29/19 12:55 Neonat Direct Bilirubin Not Reportable 06/29/19 12:55 Neonat Indirect Bili Not Reportable 06/29/19 12:55 AST 39 U/L (14-36) H 06/29/19 12:55 ALT 26 U/L (<35) 06/29/19 12:55 Alkaline Phosphatase 99 U/L (38-126) 06/29/19 12:55 Troponin I < 0.012 ng/mL 06/29/19 12:55 Total Protein 6.6 g/dL (6.3-8.2) 06/29/19 12:55 Albumin 3.6 g/dL (3.5-5.0) 06/29/19 12:55 TSH 1.15 uIU/mL (0.47-4.68) 06/29/19 12:55 Urine Color SYDNEY 06/29/19 17:30 Urine Appearance CLEAR 06/29/19 17:30 Urine pH 6.0 (5.0-9.0) 06/29/19 17:30 Ur Specific [place] 1.026 06/29/19 17:30 Urine Protein 30 mg/dL (NEGATIVE) H 06/29/19 17:30 Urine Glucose (UA) 150 mg/dL (NEGATIVE) H 06/29/19 17:30 Urine Ketones 20 mg/dL (NEGATIVE) H 06/29/19 17:30 Urine Blood NEGATIVE (NEGATIVE) 06/29/19 17:30 Urine Nitrite NEGATIVE (NEGATIVE) 06/29/19 17:30 Urine Bilirubin NEGATIVE (NEGATIVE) 06/29/19 17:30 Urine Urobilinogen 4.0 mg/dL (<2.0) H 06/29/19 17:30 Ur Leukocyte Esterase NEGATIVE (NEGATIVE) 06/29/19 17:30 Urine WBC (Auto) 6 /HPF 06/29/19 17:30 Urine RBC (Auto) 1 /HPF 06/29/19 17:30 Urine Bacteria (Auto) TRACE /HPF 06/29/19 17:30 Squamous Epi Cells Auto <1 /HPF 06/29/19 17:30 Urine Mucus (Auto) MANY /LPF 06/29/19 17:30 Urine Ascorbic Acid 20 (NEGATIVE) H 06/29/19 17:30 Serum Alcohol < 10 mg/dL (NONE DETECTED) 06/29/19 12:55 Serum Alcohol Cancelled 06/29/19 12:55 06/29/19 12:55 Troponin I < 0.012 Impressions: Acute Abdomen Series 06/29/19 12:12 IMPRESSION: Chronic lung changes. Nonspecific abdomen. Lung Scan-VQ NM 06/29/19 18:13 IMPRESSION: Examination limited due to patient's inability to cooperate. Best possible images were obtained. Low probability for pulmonary embolus copyright 2010 [employer]- All Rights Reserved Stroke Is this a Stroke Patient?: No Acute Heart Failure - Is this a Heart Failure Patient?: No
--- NOTE | 2019-06-30 18:54 | XCELERA REPORT ---
[address] [address] Transthoracic Echocardiogram Report Name: AXEL NORMAN Age: 78 yrs Gender: Female : 1940 Patient Status: Inpatient Patient Location: [place] [address]^A Study Date: 06/29/2019 08:11 PM History: Atrial fibrillation Height: 62 in Weight: 85 lb BSA: 1.3 m2 Procedure: A complete two-dimensional transthoracic echocardiogram was performed (2D, M-mode, spectral and color flow Doppler). The study was technically difficult with many images being suboptimal in quality. Reason For Study: assess LVEF, Dr. Graff pt Previous Evaluation: No previous studies were available. History: Atrial fibrillation. Ordering Physician: TANIKA ROMERO Performed By: Hortencia Barnes Interpretation Summary The study was technically difficult with many images being suboptimal in quality. Left ventricular systolic function is normal. The Ejection Fraction estimate is 55-60% The right ventricle is normal in size and function. There is a mild amount of mitral regurgitation There is no aortic valve stenosis There is a mild to moderate amount of tricuspid regurgitation There is mild to moderate pulmonary hypertension by echo There is no pericardial effusion. MMode/2D Measurements & Calculations RVDd: 2.3 cm LVIDd: 3.7 cm FS: 35.8 % Ao root diam: 2.8 cm IVSd: 0.89 cm LVIDs: 2.4 cm EDV(Teich): Ao root area: LVPWd: 1.0 cm 58.1 ml 6.3 cm2 ESV(Teich): LA dimension: 3.0 cm 19.6 ml EF(Teich): 66.3 % LVLd ap4: 6.1 cm SV(MOD-sp4): EDV(MOD-sp4): 21.0 ml 34.0 ml LVLs ap4: 4.9 cm ESV(MOD-sp4): 13.0 ml EF(MOD-sp4): 61.8 % Doppler Measurements & Calculations MV E max zora: MV P1/2t max zora: Ao V2 max: LV V1 max P.6 cm/sec 95.0 cm/sec 159.3 cm/sec 2.5 mmHg MV P1/2t: 69.0 msec Ao max PG: LV V1 max: MVA(P1/2t): 3.2 cm2 10.1 mmHg 78.5 cm/sec MV dec slope: 403.3 cm/sec2 MV dec time: 0.17 sec PA V2 max: TR max zora: MV P1/2t-pr_phl: 161.5 cm/sec 320.3 cm/sec 69.0 msec PA max PG: TR max P.0 mmHg 10.4 mmHg Left Ventricle The left ventricle is grossly normal size. There is borderline concentric left ventricular hypertrophy. Left ventricular systolic function is normal. The Ejection Fraction estimate is 55-60%. LV diastolic function not assessed. No regional wall motion abnormalities noted. Right Ventricle The right ventricle is normal in size and function. Atria The right atrium is borderline dilated. The left atrial size is normal. Mitral Valve The mitral valve is grossly normal. There is a mild amount of mitral regurgitation. Aortic Valve The aortic valve is sclerotic and shows some degree of functional abnormality. The aortic valve is mildly calcified. There is no aortic valve stenosis. No aortic regurgitation is present. Tricuspid Valve The tricuspid valve is normal in structure and function. There is a mild to moderate amount of tricuspid regurgitation. Right ventricular systolic pressure is estimated to be elevated at 40-50mmHg. There is mild to moderate pulmonary hypertension by echo. Pulmonic Valve The pulmonic valve is not well visualized. There is a trace or physiologic amount of pulmonic regurgitation. Effusions There is no pericardial effusion. : TANIKA ROMERO Anil
[2019-06-30] MEDS ORDERED: METOPROLOL TARTRATE 25 MG TABLET PO SCH (22:00)
== END 2019-06-30 16:55 | disposition home or self-care (01) | DRG 310 ==
LOC: ER 11:53 → EH 15:49 → INTOOBSV 15:49 → 3S 21:23 → OBSVTOIN 06-30 13:51
PROVIDERS: ADMIT Internal Medicine; ATTEND Internal Medicine
DX: I48.91 Unspecified atrial fibrillation (principal); Z99.81 Dependence on supplemental oxygen; E86.0 Dehydration; J44.9 Chronic obstructive pulmonary disease, unspecified; F41.9 Anxiety disorder, unspecified; M19.90 Unspecified osteoarthritis, unspecified site; Z79.01 Long term (current) use of anticoagulants; Z85.3 Personal history of malignant neoplasm of breast; Z87.891 Personal history of nicotine dependence; Z88.0 Allergy status to penicillin; Z88.8 Allergy status to other drugs, medicaments and biological substances; Z91.048 Other nonmedicinal substance allergy status; Z83.6 Family history of other diseases of the respiratory system; Z82.49 Family history of ischemic heart disease and other diseases of the circulatory system
CPT/HCPCS: 36415; 74022; 78582; 80053; 80307; 81001; 83735; 84443; 84484; 85025; 85379; 93005; 93010; 93306; 96365; 96366; 96376; 99285; A9540; A9567; G0378; J1644; J3490; J7030; J7120; Q9969

== ENCOUNTER 2019-07-01 05:40 | Inpatient (IN) | payer MEDICARE, BC ==
--- NOTE | 2019-07-01 06:31 | ER Document Report ---
ED Medical Screen (RME) - General Chief Complaint: Abdominal Pain Stated Complaint: ABDOMINAL PAIN Time Seen by Provider: 07/01/19 05:59 Primary Care Provider: JE LEHMAN FNP-C [Primary Care Provider] - Follow up as needed Mode of Arrival: Wheelchair Information source: Patient Notes: 78-year-old female presented to ED for complaint of abdominal pain. She states she has had this pain for more than a week. She states she was just seen in the hospital a couple days ago for the same thing and was admitted for A. fib. She states she was discharged yesterday and still did not get anything done for abdominal pain. She states she is extremely weak and painful. She states she has not had a bowel movement in at least a week. She states they did do an x-ra y yesterday and sent her home without telling her what the results were. When she was seen several days ago they had to convince her to be admitted she just agreed to stay overnight but was discharged yesterday. At this time her heart rate is going between 101 120 and back again. I have ordered lab work EKG she is on the monitor. Her abdomen is soft very tender with active bowel sounds I have greeted and performed a rapid initial assessment of this patient. A comprehensive ED assessment and evaluation of the patient, analysis of test results and completion of medical decision making process will be conducted by an additional ED providers. TRAVEL OUTSIDE OF THE [place] IN LAST 30 DAYS: No - Related Data Allergies/Adverse Reactions: ibuprofen [Ibuprofen] Allergy (Verified 06/29/19 12:05) ITCHING naproxen sodium [From Aleve] Allergy (Verified 06/29/19 12:05) ITCHING, PASSES OUT, SHOCK Penicillins Allergy (Verified 06/29/19 12:05) Hives theophylline anhydrous [From Theophyl] Allergy (Verified 06/29/19 12:05) Hives adhesive tape [Adhesive Tape] Adverse Reaction (Mild, Verified 06/29/19 12:05) rash, tears skin Home Medications: epi pen. patanol eye drop. advair inhaler. albuterol inhaler. arimidex 1mg tab. calcium 500-vit D 3 600. chantix. klonopin. eiquis. lopressor. multivitamin. gabapentin 300mg. zoloft 25mg. singulair. spiriva Past Medical History - Social History Chew tobacco use (# tins/day): No Frequency of alcohol use: Occasional Drug Abuse: None - Past Medical History Cardiac Medical History: Denies: Hx Coronary Artery Disease, Hx Heart Attack, Hx Hypertension Pulmonary Medical History: Reports: Hx Asthma, Hx COPD - 3L nc home o2., Hx Pneumonia - 2010 Denies: Hx Bronchitis Neurological Medical History: Denies: Hx Cerebrovascular Accident, Hx Seizures Renal/ Medical History: Denies: Hx Peritoneal Dialysis GI Medical History: Reports: Hx Diverticulitis Musculoskeltal Medical History: Reports Hx Arthritis Psychiatric Medical History: Reports: Hx Depression Infectious Medical History: Past Surgical History: Reports: Hx Appendectomy, Hx Bowel Surgery, Hx Mastectomy, Hx Tubal Ligation. Denies: Hx Hysterectomy - Immunizations Hx Diphtheria, Pertussis, Tetanus Vaccination: Yes Physical Exam - Vital signs Vitals: Temp Pulse Resp BP Pulse Ox 98.3 F 109 H 28 H 162/99 H 97 07/01/19 05:40 07/01/19 05:40 07/01/19 05:40 07/01/19 05:40 07/01/19 05:40 Course - Vital Signs Vital signs: Temp Pulse Resp BP Pulse Ox 98.3 F 109 H 28 H 162/99 H 97 07/01/19 05:40 07/01/19 05:40 07/01/19 05:40 07/01/19 05:40 07/01/19 05:40 Doctor's Discharge - Discharge Referrals: JE LEHMAN FNP-C [Primary Care Provider] - Follow up as needed
[2019-07-01 07:13] LABS: HEMOGLOBIN 13.2 g/dL (12.0-15.5); MEAN CORPUSCULAR HEMOGLOBIN 30.1 pg (27.0-33.4); MEAN CORPUSCULAR HGB CONC 33.1 g/dL (32.0-36.0); MEAN CORPUSCULAR VOLUME 91 fl (80-97); PLATELET COUNT 274 10^3/uL (150-450); RED BLOOD COUNT 4.39 10^6/uL (3.72-5.28); RED CELL DISTRIBUTION WIDTH 14.4 % (11.5-14.0); WHITE BLOOD COUNT 11.5 10^3/uL (4.0-10.5)
[2019-07-01] MEDS ORDERED: METOPROLOL TARTRATE 25 MG TABLET PO ONE (07:23)
[2019-07-01] MEDS ORDERED: MINERAL OIL ENEMA 133 ML PR ONE (07:24)
[2019-07-01 07:28] LABS: ALBUMIN 3.1 g/dL (3.5-5.0); ALKALINE PHOSPHATASE 161 U/L (38-126); ANION GAP 6 (5-19); ASPARTATE AMINO TRANSFERASE 129 U/L (14-36); BILIRUBIN,DIRECT 0.4 mg/dL (0.0-0.4); BILIRUBIN,TOTAL 0.6 mg/dL (0.2-1.3); BLOOD UREA NITROGEN 13 mg/dL (7-20); CALCIUM 9.1 mg/dL (8.4-10.2); CARBON DIOXIDE 37 mmol/L (22-30); CHLORIDE 86 mmol/L (98-107); GLUCOSE 116 mg/dL (75-110); POTASSIUM 5.2 mmol/L (3.6-5.0); TOTAL PROTEIN 5.8 g/dL (6.3-8.2)
[2019-07-01 07:43] LABS: ABSOLUTE LYMPHOCYTES# (MANUAL) 1.3 10^3/uL (0.5-4.7); ABSOLUTE MONOCYTES # (MANUAL) 1.4 10^3/uL (0.1-1.4); BASOPHILS % (MANUAL) 0 % (0-2); EOSINOPHILS % (MANUAL) 0 % (0-6); LYMPHOCYTES % (MANUAL) 11 % (13-45); MONOCYTES % (MANUAL) 12 % (3-13); SEGMENTED NEUTROPHILS % (MAN) 77 % (42-78); TOTAL CELLS COUNTED 100
[2019-07-01 07:48] LABS: TOXIC GRANULATION 1+
[2019-07-01 07:49] LABS: ANISOCYTOSIS SLIGHT; OVALOCYTES SLIGHT; PLATELET COMMENT ADEQUATE
--- NOTE | 2019-07-01 08:07 | ER Document Report ---
Entered by ALESIA MELLO SCRIBE 07/01/19 0633 Acting as scribe for:MACHO KEBEDE IV, MD ED General - General Chief Complaint: Abdominal Pain Stated Complaint: ABDOMINAL PAIN Time Seen by Provider: 07/01/19 05:59 Primary Care Provider: JE LEHMAN FNP-C [Primary Care Provider] - Follow up as needed Mode of Arrival: Wheelchair Information source: Patient, Relative Notes: This 78 year old female patient presents to the emergency department today with complaints of abdominal pain for x1 week. Patient states that she has not had a bowel movement in over one week. Patient was just admitted for one day at this facility yesterday (06/30/19) for a-fib with RVR but her constipation was not addressed other than an acute abdominal series. Patient states her last bowel movement was about a week ago. Patient denies any nausea or vomiting. TRAVEL OUTSIDE OF THE [place] IN LAST 30 DAYS: No - Related Data Allergies/Adverse Reactions: ibuprofen [Ibuprofen] Allergy (Verified 06/29/19 12:05) ITCHING naproxen sodium [From Aleve] Allergy (Verified 06/29/19 12:05) ITCHING, PASSES OUT, SHOCK Penicillins Allergy (Verified 06/29/19 12:05) Hives theophylline anhydrous [From Theophyl] Allergy (Verified 06/29/19 12:05) Hives adhesive tape [Adhesive Tape] Adverse Reaction (Mild, Verified 06/29/19 12:05) rash, tears skin Home Medications: epi pen. patanol eye drop. advair inhaler. albuterol inhaler. arimidex 1mg tab. calcium 500-vit D 3 600. chantix. klonopin. eiquis. lopressor. multivitamin. gabapentin 300mg. zoloft 25mg. singulair. spiriva Past Medical History - General Information source: Patient - Social History Smoking Status: Former Smoker Cigarette use (# per day): No Chew tobacco use (# tins/day): No Frequency of alcohol use: Occasional Drug Abuse: None Lives with: Family Family History: Reviewed & Not Pertinent, COPD, Hypertension Patient has suicidal ideation: No Patient has homicidal ideation: No Pulmonary Medical History: Reports: Hx Asthma, Hx COPD - 3L n[place] home o2., Hx Pneumonia - 2010 GI Medical History: Reports: Hx Diverticulitis Musculoskeletal Medical History: Reports Hx Arthritis Psychiatric Medical History: Reports: Hx Depression Infectious Medical History: Past Surgical History: Reports: Hx Appendectomy, Hx Bowel Surgery, Hx Mastectomy, Hx Tubal Ligation. Denies: Hx Hysterectomy - Immunizations Hx Diphtheria, Pertussis, Tetanus Vaccination: Yes Hx Pneumococcal Vaccination: 06/15/10 Review of Systems - Review of Systems Constitutional: No symptoms reported EENT: No symptoms reported Cardiovascular: See HPI, Heart racing Respiratory: No symptoms reported Gastrointestinal: See HPI, Abdominal pain. denies: Nausea, Vomiting Genitourinary: No symptoms reported Female Genitourinary: No symptoms reported Musculoskeletal: No symptoms reported Skin: No symptoms reported Hematologic/Lymphatic: No symptoms reported Neurological/Psychological: No symptoms reported -: Yes All other systems reviewed and negative Physical Exam - Vital signs Vitals: Temp Pulse Resp BP Pulse Ox 98.3 F 109 H 28 H 162/99 H 97 07/01/19 05:40 07/01/19 05:40 07/01/19 05:40 07/01/19 05:40 07/01/19 05:40 Interpretation: Normal - General General appearance: Appears well, Alert - HEENT Head: Normocephalic, Atraumatic Eyes: Normal Pupils: PERRL - Respiratory Respiratory status: No respiratory distress Chest status: Nontender Breath sounds: Normal Chest palpation: Normal - Cardiovascular Rhythm: Irregularly irregular, Tachycardia Heart sounds: Normal auscultation Murmur: No - Abdominal Inspection: Other - No peritoneal signs Distension: No distension Bowel sounds: Hypoactive Tenderness: Nontender Organomegaly: No organomegaly - Back Back: Normal, Nontender - Extremities General upper extremity: Normal inspection. No: Edema General lower extremity: Normal inspection. No: Edema - Neurological Neuro grossly intact: Yes Cognition: Normal Orientation: AAOx4 [place] Coma Scale Eye Opening: Spontaneous [place] Coma Scale Verbal: Oriented [place] Coma Scale Motor: Obeys Commands Shayan Coma Scale Total: 15 Speech: Normal - Psychological Associated symptoms: Normal affect, Normal mood - Skin Skin Temperature: Warm Skin Moisture: Dry Skin Color: Normal Course - Vital Signs Vital signs: Temp Pulse Resp BP Pulse Ox 98.3 F 109 H 25 H 131/84 H 100 07/01/19 05:40 07/01/19 05:40 07/01/19 13:00 07/01/19 14:01 07/01/19 14:01 - Laboratory Result Diagrams: 07/01/19 06:41 07/01/19 06:41 Laboratory results interpreted by me: 07/01/19 07/01/19 07/01/19 06:41 06:41 11:55 WBC 11.5 H RDW 14.4 H Lymphocytes % (Manual) 11 L Abs Neuts (Manual) 8.9 H Sodium 129.4 L Potassium 5.2 H Chloride 86 L Carbon Dioxide 37 H Creatinine 0.28 L Glucose 116 H AST 129 H Alkaline Phosphatase 161 H Total Protein 5.8 L Albumin 3.1 L Urine Protein 30 H Urine Ketones TRACE H Urine Urobilinogen 4.0 H Urine Ascorbic Acid 20 H - Consults dr. carlton Time consulted: 10:08 Reason for consultation: 07/01/19 10:04 [address] per . dr. carlton recommended doing a ct of the head and abd, ua and update him with results Consulted provider: other - results d/w dr. carlton at 1330 hours. he requested t hat a UDS be added to lab work and he will come to ED and evaluate pt and talk to pt's spouse. Discharge - Discharge Clinical Impression: Confusion Condition: Good Disposition: ADMITTED OBSERVATION Admitting Provider: Ana Cristina (Hospitalist) Unit Admitted: Telemetry Referrals: JE LEHMAN FNP-C [Primary Care Provider] - Follow up as needed I personally performed the services described in the documentation, reviewed and edited the documentation which was dictated to the scribe in my presence, and it accurately records my words and actions.
--- NOTE | 2019-07-01 10:12 | EKG REPORT ---
SEVERITY:- ABNORMAL ECG - SINUS TACHYCARDIA PAIRED VENTRICULAR PREMATURE COMPLEXES PROBABLE LEFT ATRIAL ABNORMALITY BORDERLINE RIGHT AXIS DEVIATION CONSIDER LEFT VENTRICULAR HYPERTROPHY : Confirmed by: Alysa Leyva MD 01-Jul-2019 10:12:11
--- NOTE | 2019-07-01 11:36 | RADIOLOGY REPORT (SQ) ---
EXAM DESCRIPTION: CT HEAD WITHOUT COMPLETED DATE/TIME: 07/01/2019 11:12 am REASON FOR STUDY: ams COMPARISON: None. TECHNIQUE: Axial images acquired through the brain without intravenous contrast. Images reviewed wi th bone, brain and subdural windows. Additional sagittal and coronal reconstructions were generated. Images stored on PACS. All CT scanners at this facility use dose modulation, iterative reconstruction, and/or weight based d osing when appropriate to reduce radiation dose to as low as reasonably achievable (ALARA). [facility]: Dose Right [facility]: CareDose [facility]: Dose Right [facility]: Teradose 4D [facility]: [employer] RADIATION DOSE: CT Rad equipment meets quality standard of care and radiation dose reduction techniq ues were employed. CTDIvol: 53.2 mGy. DLP: 1097 mGy-cm. mGy. LIMITATIONS: None. FINDINGS: There is no acute intracranial hemorrhage, vascular territorial infarct, extra-axial fluid collection, mass effect or midline shift. There is no effacement of the cerebral sulci or basal sub arachnoid cisterns. The stephens-white matter differentiation is preserved. The caliber the ventricles is concordant with the degree of sulcation. The left frontal and maxillary sinuses and left ethmoid air cells are opacified. The other paranasal sinuses are clear. The globes are aphakic. The orbits are intact. There is no fracture of the lynette varium. IMPRESSION: 1. No acute intracranial abnormality. 2. Opacification of the left frontal maxillary sinuses and left ethmoid air cells - correlate clinic ally to exclude an acute sinusitis. EVIDENCE OF ACUTE STROKE: NO. COMMENT: Quality ID # [id number]: Final reports with documentation of one or more dose reduction techniques (e.g., Automated exposure control, adjustment of the mA and/or kV according to patient size, use of iterative reconstruction technique) TECHNICAL DOCUMENTATION: JOB ID: [id number] [employer]- All Rights Reserved Reading location - IP/workstation name: [email or web address]
--- NOTE | 2019-07-01 11:48 | RADIOLOGY REPORT (SQ) ---
EXAM DESCRIPTION: CT ABD/PELVIS WITH IV ONLY COMPLETED DATE/TIME: 07/01/2019 11:12 am REASON FOR STUDY: abdominal pain COMPARISON: CT of the chest from 05/09/2019. TECHNIQUE: CT scan of the abdomen and pelvis performed using helical scanning technique with dynamic intravenous contrast injection. No oral contrast. Images reviewed with lung, soft tissue, and bone windows. Reconstructed coronal and sagittal MPR images reviewed. Delayed images for evaluation of the urinary system also acquired. All images stored on PACS. All CT scanners at this facility use dose modulation, iterative reconstruction, and/or weight based d osing when appropriate to reduce radiation dose to as low as reasonably achievable (ALARA). [facility]: Dose Right [facility]: CareDose [facility]: Dose Right [facility]: Teradose 4D [facility]: [employer] CONTRAST TYPE AND DOSE: Contrast/concentration: Isovue 350.00 mg/ml; Total Contrast Delivered: 47.0 ml; Total Saline Delivered: 45.0 ml RENAL FUNCTION: Unspecified. RADIATION DOSE: CT Rad equipment meets quality standard of care and radiation dose reduction techniq ues were employed. CTDIvol: 9.6 - 14.4 mGy. DLP: 1104 mGy-cm.. LIMITATIONS: None. FINDINGS: LOWER CHEST: Patchy areas of consolidation lower lobes and small bilateral pleural effusio ns. The heart is enlarged. There is severe atherosclerotic calcification of the coronary arteries. There is no pericardial effusion. LIVER: There are several hypodense hepatic lesions within segments 2, 3 and 4 of the liver that measu re up to 10 x 9 mm ; these lesions are favored to represent cysts. The portal veins are patent. The calcification in the dome of the liver (image 11 of series 3) is unchanged. SPLEEN: The spleen is normal in size. There is no splenic mass. PANCREAS: No acute abnormality of the pancreas. GALLBLADDER: No abnormality that is apparent on CT. ADRENAL GLANDS: No significant masses or asymmetry. RIGHT KIDNEY AND URETER: There are several cortical based cystic lesions that measure up to 4.6 x 4.5 cm. There is no solid mass, hydronephrosis, nephrolithiasis, hydroureter or ureterolithiasis. LEFT KIDNEY AND URETER: Subcentimeter cortical based cystic lesion in the lower pole of the kidney. There is no solid mass, hydronephrosis, nephrolithiasis, hydroureter or ureterolithiasis. AORTA AND VESSELS: No aneurysm or dissection of the abdominal aorta. The abdominopelvic vasculature is patent. RETROPERITONEUM: No retroperitoneal adenopathy, hemorrhage or mass. BOWEL AND PERITONEAL CAVITY: Hiatal hernia. There is no bowel obstruction, bowel wall thickening, pe ricolonic/perienteric inflammation. There is no mesenteric adenopathy, free intraperitoneal fluid, o r mesenteric/ omental inflammation. APPENDIX: Unable to identify the appendix. PELVIS: The urinary bladder is distended and normal in appearance. The uterus is present. There is no abnormality of the adnexa that is apparent on CT. ABDOMINAL WALL: No masses or hernias. BONES: Dextroconvex scoliotic curvature of the thoracolumbar spine with grade 1 retrolisthesis of L1 relative to L2 and grade 1 anterolisthesis of L4 relative to L5. There is no fracture. OTHER: No other finding. IMPRESSION: 1. Patchy areas of consolidation in the lower lobes suggestive of multifocal pneumonia. 2. No acute intra-abdominal abnormality. 3. Other findings as detailed above. TECHNICAL DOCUMENTATION: JOB ID: [id number] Quality ID # [id number]: Final reports with documentation of one or more dose reduction techniques (e.g., Au tomated exposure control, adjustment of the mA and/or kV according to patient size, use of iterative reconstruction technique) 2010 [employer]- All Rights Reserved Reading location - IP/workstation name: [email or web address]
[2019-07-01 12:22] LABS: APPEARANCE,URINE CLEAR; BILIRUBIN,URINE NEGATIVE (NEGATIVE); COLOR,URINE YELLOW; GLUCOSE, URINE NEGATIVE (NEGATIVE); KETONES,URINE TRACE mg/dL (NEGATIVE); PROTEIN,URINE 30 mg/dL (NEGATIVE)
--- NOTE | 2019-07-01 12:28 | RADIOLOGY REPORT (SQ) ---
EXAM DESCRIPTION: CHEST SINGLE VIEW COMPLETED DATE/TIME: 07/01/2019 12:04 pm REASON FOR STUDY: ? opacifications seen on ct abd/pelvis COMPARISON: None. EXAM PARAMETERS: NUMBER OF VIEWS: One view. TECHNIQUE: An AP view of the chest was obtained. RADIATION DOSE: NA LIMITATIONS: None. FINDINGS: LUNGS AND PLEURA: Acute patchy and asymmetric bibasilar opacities (right greater than left ). The costophrenic sulci are blunted. There is surgical staple lines in the right apex. There is no pneumothorax. MEDIASTINUM AND HILAR STRUCTURES: Hilar fullness. HEART AND VASCULAR STRUCTURES: The cardiac silhouette is within normal limits given the low inspirato ry lung volumes. BONES: No acute findings. HARDWARE: None in the chest. OTHER: No other finding. IMPRESSION: 1. Acute patchy an asymmetric bibasilar opacities (right greater than left) that could r epresent multifocal pneumonia. 2. Small bilateral pleural effusions. TECHNICAL DOCUMENTATION: JOB ID: [id number] [employer]- All Rights Reserved Reading location - IP/workstation name: [email or web address]
[2019-07-01 12:30] LABS: URINE SPECIFIC GRAVITY > 1.060
[2019-07-01 15:21] LABS: URINE AMPHETAMINES SCREEN NEGATIVE; URINE BARBITURATES SCREEN NEGATIVE; URINE BENZODIAZEPINES SCREEN NEGATIVE; URINE COCAINE SCREEN NEGATIVE; URINE MARIJUANA (THC) SCREEN NEGATIVE; URINE METHADONE SCREEN NEGATIVE; URINE PHENCYCLIDINE SCREEN NEGATIVE
--- NOTE | 2019-07-01 16:32 | RADIOLOGY REPORT (SQ) ---
EXAM DESCRIPTION: CT CHEST WITHOUT COMPLETED DATE/TIME: 07/01/2019 3:18 pm REASON FOR STUDY: sob COMPARISON: None. TECHNIQUE: CT scan performed of the chest without intravenous contrast. Images reviewed with lung, soft tissue and bone windows. Reconstructed coronal and sagittal MPR images reviewed. All images st ored on PACS. All CT scanners at this facility use dose modulation, iterative reconstruction, and/or weight based d osing when appropriate to reduce radiation dose to as low as reasonably achievable (ALARA). [facility]: Dose Right [facility]: CareDose [facility]: Dose Right [facility]: Teradose 4D [facility]: [employer] RADIATION DOSE: CT Rad equipment meets quality standard of care and radiation dose reduction techniq ues were employed. CTDIvol: 4.8 mGy. DLP: 187 mGy-cm. LIMITATIONS: No technical limitations. FINDINGS: LUNGS AND PLEURA: The trachea and main bronchi are patent. There is moderate to severe up per lobe predominant centrilobular emphysema. The interlobular septa are thickened. The surgical st aple line in the right apex is unchanged. There are new small bilateral pleural effusions and patchy areas consolidation in both lower lobes. There is no pleural effusion or pneumothorax. HILAR AND MEDIASTINAL STRUCTURES: Evaluation is limited due to the absence of intravenous contrast. There is a hiatal hernia. There is no mediastinal adenopathy. HEART AND VASCULAR STRUCTURES: Evaluation is limited due to the absence of intravenous contrast. The re is no thoracic aortic aneurysm or evidence of intramural hematoma. The heart is enlarged and ther e is severe atherosclerotic calcification of the coronary arteries. There is no pericardial effusion . The pulmonary arteries are dilated - correlate clinically for pulmonary hypertension. UPPER ABDOMEN: Refer to the separate report of the CT of the abdomen. THYROID AND OTHER SOFT TISSUES: The thyroid gland is enlarged and heterogeneous. There is no supracl avicular or axillary adenopathy. BONES: No acute fracture or osseous lesion. HARDWARE: None in the chest. OTHER: No other findings. IMPRESSION: Findings as above are suggestive of multifocal pneumonia (given the patchy areas of cons olidation in the lower lobes), on a background of volume overload (given the bilateral pleural effusi ons, thickening of the interlobular septa, and cardiomegaly). TECHNICAL DOCUMENTATION: JOB ID: [id number] Quality ID # [id number]: Final reports with documentation of one or more dose reduction techniques (e.g., Au tomated exposure control, adjustment of the mA and/or kV according to patient size, use of iterative reconstruction technique) 2010 [employer] [facility] [employer]- All Rights Reserved Reading location - IP/workstation name: [email or web address]
[2019-07-01] MEDS ORDERED: METOPROLOL TARTRATE PF/INJ 5 MG/5 ML SDV IV PRN (17:20)
[2019-07-01] MEDS ORDERED: IPRATROPIUM/ALBUTEROL 0.5-2.5 MG/3 ML AMPUL NEB PRN (17:21)
[2019-07-01] MEDS: LEVOFLOXACIN 750 MG/D5W RTU 750 MG/150 ML RTUPB IV SCH (17:24)
[2019-07-01] MEDS: APIXABAN 2.5 MG TABLET PO SCH (17:43)
--- NOTE | 2019-07-01 18:02 | PDOC H&P ---
History of Present Illness Admission Date/PCP: HAZEL MASON Patient complains of: confusion History of Present Illness: AXEL NORAMN is a 78 year old female with a past medical history of chronic hypoxemic respiratory failure, COPD on 3 L of home O2, history of spontaneous pneumothorax, history of breast CA, and anxiety who was recently admitted and d ischarge yesterday for new onset A. fib with RVR. Patient was started on Cardizem drip initially and was weaned off and transition to oral Lopressor. Her heart rate was rate controlled. She was also started on Eliquis. She was discharged yesterday afternoon and was on her baseline mentation and was AO x4. brought her back to the ER today and reports that she got confused last night after she had a dose of Lopressor at home. He says that she had garbled speech and that she did not know where she was. She also reported on and off abdominal pain. says that he got another dose of Lopressor this morning and she had transient confusion again. In the ER, she was noted to have possible bilateral lower lobe pneumonia, leukocytosis and hyponatremia. Patient does have chronic moderately productive cough from her COPD/bronchitis. Upon encounter, she is oriented to person, place and knows the year. She is able to remember me from yesterday. She does not have focal neurologic deficits on examination. reports that she continues to have poor appetite at home and has not been drinking or eating well at home. Patient says that she has been having poor appetite in the past several months and has lost weight. Past Medical History Cardiac Medical History: Denies: Coronary Artery Disease, Myocardial Infarction, Hypertension Pulmonary Medical History: Reports: Asthma, Chronic Obstructive Pulmonary Disease (COPD) - 3L [place] home o2., Pneumonia - 2009 Denies: Bronchitis Neurological Medical History: Denies: Seizures GI Medical History: Reports: Diverticulitis Musculoskeltal Medical History: Reports: Arthritis Psychiatric Medical History: Reports: Depression Hematology: Denies: Anemia, Sickle Cell Disease Past Surgical History Past Surgical History: Reports: Appendectomy, Mastectomy, Tubal Ligation Denies: Amputation, Hysterectomy Social History Lives with: Family Smoking Status: Former Smoker Electronic Cigarette use?: No Frequency of Alcohol Use: Social Hx Recreational Drug Use: No Drugs: None Hx Prescription Drug Abuse: No Family History Family History: Reviewed & Not Pertinent, COPD, Hypertension Parental Family History Reviewed: Yes - No premature CAD Children Family History Reviewed: No Sibling(s) Family History Reviewed.: No Medication/Allergy Home Medications: Anastrozole [Arimidex 1 mg Tablet] 1 mg PO QAM 06/29/19 Calcium Carbonate/Vitamin D3 [Calcium 500-Vit D3 600 Caplet] 1 each PO DAILY 06/29/19 Clonazepam [Klonopin] 0.5 mg PO QHS 06/29/19 Fluticasone/Salmeterol [Advair 250-50 Diskus 14 Dose/Diskus] 1 puff IH Q12 06/29/19 Montelukast Sodium [Singulair 10 mg Tablet] 10 mg PO QHS 06/29/19 Sertraline HCl [Zoloft] 25 mg PO DAILY 06/29/19 Tiotropium [place] [Spiriva Respimat] 2 puff IH QAM 06/29/19 Apixaban [Eliquis 2.5 mg Tablet] 2.5 mg PO BID 07/01/19 Metoprolol Tartrate [Lopressor 25 mg Tablet] 25 mg PO Q12 07/01/19 Allergies/Adverse Reactions: ibuprofen [Ibuprofen] Allergy (Verified 06/29/19 12:05) ITCHING naproxen sodium [From Aleve] Allergy (Verified 06/29/19 12:05) ITCHING, PASSES OUT, SHOCK Penicillins Allergy (Verified 06/29/19 12:05) Hives theophylline anhydrous [From Theophyl] Allergy (Verified 06/29/19 12:05) Hives adhesive tape [Adhesive Tape] Adverse Reaction (Mild, Verified 06/29/19 12:05) rash, tears skin Review of Systems All systems: reviewed and no additional remarkable complaints except as stated - As mentioned in HPI Physical Exam Vital Signs: Temp Pulse Resp BP Pulse Ox 98.3 F 109 H 25 H 131/84 H 100 07/01/19 05:40 07/01/19 05:40 07/01/19 13:00 07/01/19 14:01 07/01/19 14:01 Intake & Output 06/30/19 07/01/19 07/02/19 06:59 06:59 06:59 Weight 91 lb 6.4 oz General appearance: PRESENT: no acute distress, well-developed, well-nourished Head exam: PRESENT: atraumatic, normocephalic Eye exam: PRESENT: conjunctiva pink, EOMI, PERRLA. ABSENT: scleral icterus Ear exam: PRESENT: normal external ear exam Mouth exam: PRESENT: moist, tongue midline Neck exam: ABSENT: carotid bruit, JVD, lymphadenopathy, thyromegaly Respiratory exam: PRESENT: rhonchi. ABSENT: rales, wheezes Cardiovascular exam: PRESENT: RRR. ABSENT: diastolic murmur, rubs, systolic murmur Pulses: PRESENT: normal dorsalis pedis pul GI/Abdominal exam: PRESENT: normal bowel sounds, soft. ABSENT: distended, guarding, mass, organolmegaly, rebound, tenderness Rectal exam: PRESENT: deferred Neurological exam: PRESENT: alert, awake, oriented to person, oriented to place, oriented to time, CN II-XII grossly intact. ABSENT: motor sensory deficit Results Laboratory Results: 07/01/19 06:41 07/01/19 06:41 07/01/19 07/01/19 07/01/19 06:41 06:41 06:41 WBC 11.5 H RBC 4.39 Hgb 13.2 Hct 40.0 MCV 91 MCH 30.1 MCHC 33.1 RDW 14.4 H Plt Count 274 Seg Neutrophils % Not Reportable Sodium 129.4 L Potassium 5.2 H Chloride 86 L Carbon Dioxide 37 H Anion Gap 6 BUN 13 Creatinine 0.28 L Est GFR ( Amer) > 60 Glucose 116 H Lactic Acid 1.1 Calcium 9.1 Total Bilirubin 0.6 AST 129 H Alkaline Phosphatase 161 H Total Protein 5.8 L Albumin 3.1 L Urine Color Urine Appearance Urine pH Ur Specific [place] Urine Protein Urine Glucose (UA) Urine Ketones Urine Blood Urine RBC (Auto) 07/01/19 11:55 WBC RBC Hgb Hct MCV MCH MCHC RDW Plt Count Seg Neutrophils % Sodium Potassium Chloride Carbon Dioxide Anion Gap BUN Creatinine Est GFR ( Amer) Glucose Lactic Acid Calcium Total Bilirubin AST Alkaline Phosphatase Total Protein Albumin Urine Color YELLOW Urine Appearance CLEAR Urine pH 6.0 Ur Specific [place] > 1.060 Urine Protein 30 H Urine Glucose (UA) NEGATIVE Urine Ketones TRACE H Urine Blood NEGATIVE Urine RBC (Auto) 4 07/01/19 06:41 Troponin I 0.022 Impressions: Head CT 07/01/19 10:05 IMPRESSION: 1. No acute intracranial abnormality. 2. Opacification of the left frontal maxillary sinuses and left ethmoid air cells - correlate clinically to exclude an acute sinusitis. EVIDENCE OF ACUTE STROKE: NO. Abdomen/Pelvis CT 07/01/19 10:06 IMPRESSION: 1. Patchy areas of consolidation in the lower lobes suggestive of multifocal pneumonia. 2. No acute intra-abdominal abnormality. 3. Other findings as detailed above. Chest X-Ray 07/01/19 11:50 IMPRESSION: 1. Acute patchy an asymmetric bibasilar opacities (right greater than left) that could represent multifocal pneumonia. 2. Small bilateral pleural effusions. Assessment and Plan - Diagnosis (1) Acute metabolic encephalopathy Is this a current diagnosis for this admission?: Yes Plan: Likely multifactorial from multifocal pneumonia, dehydration, and hyponatremia. (2) Multifocal pneumonia Is this a current diagnosis for this admission?: Yes Plan: Will pursue a chest CT. Chest x-ray did shows new infiltrates not appreciated on chest x-ray done the other day. She did came in dehydrated the other day and hence likely affected the initial chest x-ray findings. Will start IV levofloxacin. Also order sputum culture. (3) Atrial fibrillation Is this a current diagnosis for this admission?: Yes (4) Hepatic lesion Is this a current diagnosis for this admission?: Yes Plan: Reported to be likely benign. Will consult patient's oncologist who has been following her for her history of breast cancer for further evaluation as well. (5) Hyponatremia Is this a current diagnosis for this admission?: Yes - Time Time Spent with patient: 25-34 minutes
[2019-07-01] MEDS: CLONAZEPAM 1 MG TABLET PO SCH (21:16)
[2019-07-01] MEDS: MONTELUKAST SODIUM 10 MG TABLET PO SCH (21:16)
[2019-07-01] MEDS: METOPROLOL TARTRATE 25 MG TABLET PO SCH (21:16)
[2019-07-01] MEDS ORDERED: (PENDING PHARMACY ID) (Clonazepam [Klonopin] 0.5 MG) PO SCH (22:00)
[2019-07-01] MEDS ORDERED: (PENDING PHARMACY ID) (Fluticasone/Salmeterol 1 PUFF) IH SCH (22:00)
[2019-07-02] MEDS ORDERED: (PENDING PHARMACY ID) (Tiotropium Bromide [Spiriva Respimat] 2 PUFF) IH SCH (08:00)
[2019-07-02] MEDS: UMECLIDINIUM BROMIDE 62.5 MCG/DOSE IH SCH (08:03)
[2019-07-02] MEDS: ANASTROZOLE 1 MG TABLET PO SCH (08:03)
[2019-07-02] MEDS ORDERED: (PENDING PHARMACY ID) (Sertraline Hcl [Zoloft] 25 MG) PO SCH (10:00)
[2019-07-02] MEDS ORDERED: CALCIUM CARBONATE PO SCH (10:00)
[2019-07-02] MEDS ORDERED: [UNRECOGNIZED DRUG - OTHER] PO SCH (10:00)
[2019-07-02] MEDS ORDERED: VITAMIN D3 PO SCH (10:00)
[2019-07-02] MEDS ORDERED: DIGOXIN 0.125 MG TABLET PO ONE (10:15)
[2019-07-02] MEDS: SERTRALINE HCL 50 MG TABLET PO SCH (10:25)
[2019-07-02] MEDS: CHOLECALCIFEROL (D3) 400 UNIT TABLET PO SCH (10:26)
[2019-07-02] MEDS: APIXABAN 2.5 MG TABLET PO SCH ×2 (10:26→18:09)
[2019-07-02] MEDS: CALCIUM CARBONATE 500 MG TABLET PO SCH (10:26)
[2019-07-02] MEDS: METOPROLOL TARTRATE 25 MG TABLET PO SCH (10:27)
[2019-07-02] MEDS: FLUTICASONE/VILANTEROL 200-25 MCG/DOSE IH SCH (10:27)
[2019-07-02] MEDS: LEVOFLOXACIN 750 MG/D5W RTU 750 MG/150 ML RTUPB IV SCH (10:28)
[2019-07-02 11:06] LABS: HEMATOCRIT 38.1 % (36.0-47.0); HEMOGLOBIN 12.8 g/dL (12.0-15.5); MEAN CORPUSCULAR HEMOGLOBIN 30.4 pg (27.0-33.4); MEAN CORPUSCULAR HGB CONC 33.5 g/dL (32.0-36.0); MEAN CORPUSCULAR VOLUME 91 fl (80-97); PLATELET COUNT 284 10^3/uL (150-450); RED BLOOD COUNT 4.21 10^6/uL (3.72-5.28); RED CELL DISTRIBUTION WIDTH 13.9 % (11.5-14.0); WHITE BLOOD COUNT 10.6 10^3/uL (4.0-10.5)
[2019-07-02 11:26] LABS: ALBUMIN 2.8 g/dL (3.5-5.0); ALKALINE PHOSPHATASE 131 U/L (38-126); ASPARTATE AMINO TRANSFERASE 42 U/L (14-36); BILIRUBIN,DIRECT 0.5 mg/dL (0.0-0.4); BILIRUBIN,TOTAL 0.6 mg/dL (0.2-1.3); BLOOD UREA NITROGEN 12 mg/dL (7-20); CALCIUM 8.4 mg/dL (8.4-10.2); CHLORIDE 84 mmol/L (98-107); GLUCOSE 91 mg/dL (75-110); POTASSIUM 5.2 mmol/L (3.6-5.0); TOTAL PROTEIN 5.3 g/dL (6.3-8.2)
[2019-07-02 11:29] LABS: ABSOLUTE LYMPHOCYTES# (MANUAL) 0.2 10^3/uL (0.5-4.7); ABSOLUTE MONOCYTES # (MANUAL) 0.3 10^3/uL (0.1-1.4); BASOPHILS % (MANUAL) 0 % (0-2); EOSINOPHILS % (MANUAL) 0 % (0-6); LYMPHOCYTES % (MANUAL) 2 % (13-45); MONOCYTES % (MANUAL) 3 % (3-13); SEGMENTED NEUTROPHILS % (MAN) 95 % (42-78); TOTAL CELLS COUNTED 100
[2019-07-02 11:30] LABS: PLATELET CLUMPS PRESENT; PLATELET COMMENT ADEQUATE; STOMATOCYTES 1+; TOXIC GRANULATION 1+
[2019-07-02 11:38] LABS: ANION GAP 4 (5-19)
[2019-07-02 11:39] LABS: CARBON DIOXIDE 42 mmol/L (22-30)
--- NOTE | 2019-07-02 11:42 | PDOC PROGRESS REPORT ---
Subjective Progress Note for:: 07/02/19 Subjective:: AXEL NORMAN is a 78 year old female with a past medical history of chronic hypoxemic respiratory failure, COPD on 3 L of home O2, history of spontaneous pneumothorax, history of breast CA, and anxiety who was recently admitted and discharged for new onset A. fib with RVR. In the ER, she was noted to have possible bilateral lower lobe pneumonia, leukocytosis and hyponatremia. Patient does have chronic moderately productive cough from her COPD/bronchitis. She continues to have poor appetite at home. Chest CT did reveal bilateral lower lobe pneumonia. No acute event overnight. Denies any acute complaints upon encounter. Afib is rate controlle drunning in the 100-105 on tele. Reason For Visit: ACUTE ENCEPHALOPATHY, MULTIFOCAL PNEUMONIA Physical Exam Vital Signs: Temp Pulse Resp BP Pulse Ox 97.5 F 104 H 17 138/81 H 97 07/02/19 07:43 07/02/19 07:43 07/02/19 07:43 07/02/19 07:43 07/02/19 04:00 Intake & Output 07/01/19 07/02/19 07/03/19 06:59 06:59 06:59 Intake Total 260 Balance 260 Weight 91 lb 6.4 oz 54 lb 10.794 oz General appearance: PRESENT: no acute distress, well-developed, well-nourished Head exam: PRESENT: atraumatic, normocephalic Eye exam: PRESENT: conjunctiva pink, EOMI, PERRLA. ABSENT: scleral icterus Ear exam: PRESENT: normal external ear exam Mouth exam: PRESENT: moist, tongue midline Neck exam: ABSENT: carotid bruit, JVD, lymphadenopathy, thyromegaly Respiratory exam: PRESENT: rhonchi. ABSENT: rales, wheezes Cardiovascular exam: PRESENT: RRR. ABSENT: diastolic murmur, rubs, systolic mur mur Pulses: PRESENT: normal dorsalis pedis pul GI/Abdominal exam: PRESENT: normal bowel sounds, soft. ABSENT: distended, guarding, mass, organolmegaly, rebound, tenderness Rectal exam: PRESENT: deferred Extremities exam: PRESENT: full ROM. ABSENT: calf tenderness, clubbing, pedal edema Neurological exam: PRESENT: alert, awake, oriented to person, oriented to place, oriented to time, CN II-XII grossly intact. ABSENT: motor sensory deficit Results Laboratory Results: 07/01/19 06:41 07/01/19 06:41 07/01/19 07/01/19 07/01/19 06:41 11:55 16:25 Serum Osmolality 267 L Ammonia < 8.7 L Urine Color YELLOW Urine Appearance CLEAR Urine pH 6.0 Ur Specific [place] > 1.060 Urine Protein 30 H Urine Glucose (UA) NEGATIVE Urine Ketones TRACE H Urine Blood NEGATIVE Urine RBC (Auto) 4 07/01/19 07/01/19 06:41 06:41 Troponin I 0.022 NT-Pro-B Natriuret Pep 2740 H Impressions: Head CT 07/01/19 10:05 IMPRESSION: 1. No acute intracranial abnormality. 2. Opacification of the left frontal maxillary sinuses and left ethmoid air cells - correlate clinically to exclude an acute sinusitis. EVIDENCE OF ACUTE STROKE: NO. Abdomen/Pelvis CT 07/01/19 10:06 IMPRESSION: 1. Patchy areas of consolidation in the lower lobes suggestive of multifocal pneumonia. 2. No acute intra-abdominal abnormality. 3. Other findings as detailed above. Chest X-Ray 07/01/19 11:50 IMPRESSION: 1. Acute patchy an asymmetric bibasilar opacities (right greater than left) that could represent multifocal pneumonia. 2. Small bilateral pleural effusions. Chest CT 07/01/19 14:38 IMPRESSION: Findings as above are suggestive of multifocal pneumonia (given the patchy areas of consolidation in the lower lobes), on a background of volume overload (given the bilateral pleural effusions, thickening of the interlobular septa, and cardiomegaly). Assessment and Plan - Diagnosis (1) Acute metabolic encephalopathy Is this a current diagnosis for this admission?: Yes Plan: Likely multifactorial from multifocal pneumonia, dehydration, and hyponatremia. 07/02: Improved. (2) Multifocal pneumonia Is this a current diagnosis for this admission?: Yes Plan: Will pursue a chest CT. Chest x-ray did shows new infiltrates not appreciated on chest x-ray done the other day. She did came in dehydrated the other day and hence likely affected the initial chest x-ray findings. Will start IV levofloxacin. Also order sputum culture. 07/02: Chest CT did reveal bilateral lower lobe pneumonia. Pneumonia was likely masked by dehydration when she first came in. Cotn[place]ue IV Levaquin. (3) Atrial fibrillation Is this a current diagnosis for this admission?: Yes Plan: Rate-controlled. Pneumonia likely contributory. Continue eliquis and lopressor. (4) Hepatic lesion Is this a current diagnosis for this admission?: Yes Plan: Reported to be likely benign. Will consult patient's oncologist who has been following her for her history of breast cancer for further evaluation as well. 07/02: report she did have liver biopsy few years back and was told findings were benign. (5) Hyponatremia Is this a current diagnosis for this admission?: Yes Plan: Improved with IV fluids. - Time Time Spent with patient: 25-34 minutes
--- NOTE | 2019-07-02 18:09 | PDOC CONSULTATION ---
Consultation Consult Date: 07/02/19 Provider Consulted: LEAH VALDIVIA Consult reason:: Hematology/Oncology consultation was requested for patient on Arimidex for history of breast cancer. History of Present Illness Admission Date/PCP: 07/02/19 13:05 HAZEL MASON History of Present Illness: AXEL NORMAN is a 78 year old female who was diagnosed with Invasive Ductal Carcinoma of the left breast in 2016. She currently has had no evidence of disease and has been on adjuvant Arimidex. She had been very stable until a few days ago, when she presented to the hospital in A-fib. She was started on blood thinners and rate control agents and was discharged within 48 hours. However, she returned within 2 hours as reports that once they started her on Lopressor, her mental status changed. She will answer questions, but does not participate in conversations, appears confused and "drunk" and if she is not fully aware of what is going on. He states that multiple tests have been performed, and she is being treated for pneumonia, but no good reason for the mental status changes has been found. Past Medical History Cardiac Medical History: Denies: Coronary Artery Disease, Myocardial Infarction, Hypertension Pulmonary Medical History: Reports: Asthma, Chronic Obstructive Pulmonary Disease (COPD) - 3L [place] home o2., Pneumonia - 2009 Denies: Bronchitis Neurological Medical History: Denies: Seizures GI Medical History: Reports: Diverticulitis Musculoskeltal Medical History: Reports: Arthritis Psychiatric Medical History: Reports: Depression Hematology: Denies: Anemia, Sickle Cell Disease Past Surgical History Past Surgical History: Reports: Appendectomy, Mastectomy, Tubal Ligation Denies: Amputation, Hysterectomy Social History Lives with: Family Smoking Status: Former Smoker Electronic Cigarette use?: No Frequency of Alcohol Use: Social Hx Recreational Drug Use: No Drugs: None Hx Prescription Drug Abuse: No - Advance Directive Resuscitation Status: Full Code Family History Family History: Reviewed & Not Pertinent, COPD, Hypertension Parental Family History Reviewed: Yes - Father with aneurism. Children Family History Reviewed: No Sibling(s) Family History Reviewed.: Yes - sister with breast cancer Medication/Allergy Home Medications: Anastrozole [Arimidex 1 mg Tablet] 1 mg PO QAM 06/29/19 Calcium Carbonate/Vitamin D3 [Calcium 500-Vit D3 600 Caplet] 1 each PO DAILY 06/29/19 Clonazepam [Klonopin] 0.5 mg PO QHS 06/29/19 Fluticasone/Salmeterol [Advair 250-50 Diskus 14 Dose/Diskus] 1 puff IH Q12 06/29/19 Montelukast Sodium [Singulair 10 mg Tablet] 10 mg PO QHS 06/29/19 Sertraline HCl [Zoloft] 25 mg PO DAILY 06/29/19 Tiotropium [place] [Spiriva Respimat] 2 puff IH QAM 06/29/19 Apixaban [Eliquis 2.5 mg Tablet] 2.5 mg PO BID 07/01/19 Metoprolol Tartrate [Lopressor 25 mg Tablet] 25 mg PO Q12 07/01/19 Allergies/Adverse Reactions: ibuprofen [Ibuprofen] Allergy (Verified 06/29/19 12:05) ITCHING naproxen sodium [From Aleve] Allergy (Verified 06/29/19 12:05) ITCHING, PASSES OUT, SHOCK Penicillins Allergy (Verified 06/29/19 12:05) Hives theophylline anhydrous [From Theophyl] Allergy (Verified 06/29/19 12:05) Hives adhesive tape [Adhesive Tape] Adverse Reaction (Mild, Verified 06/29/19 12:05) rash, tears skin Review of Systems ROS unobtainable: Due to mental status Physical Exam Vital Signs: Temp Pulse Resp BP Pulse Ox 97.6 F 33 L 18 146/94 H 82 L 07/02/19 15:24 07/02/19 15:24 07/02/19 15:24 07/02/19 15:24 07/02/19 15:24 Intake & Output 07/01/19 07/02/19 07/03/19 06:59 06:59 06:59 Intake Total 410 390 Balance 410 390 Weight 41.458 kg 24.8 kg General appearance: PRESENT: no acute distress, well-developed, well-nourished Exam: 78 year old female, at bedside. Head exam: PRESENT: atraumatic, normocephalic Eye exam: PRESENT: EOMI Mouth exam: PRESENT: moist, tongue midline Neck exam: PRESENT: lymphadenopathy. ABSENT: tenderness Respiratory exam: PRESENT: unlabored. ABSENT: prolonged expiratory phas, tachypnea GI/Abdominal exam: PRESENT: soft. ABSENT: tenderness Extremities exam: ABSENT: pedal edema Musculoskeletal exam: PRESENT: normal inspection Neurological exam: PRESENT: alert, altered, awake, oriented to person Psychiatric exam: PRESENT: flat affect, other - Does not make eye contact and does not converse freely. Shows no emotion. Skin exam: PRESENT: normal color, other - Echymoses with chronic changes both ankles. Results Laboratory Results: 07/02/19 10:47 07/02/19 10:47 07/02/19 07/02/19 10:47 10:47 WBC 10.6 H RBC 4.21 Hgb 12.8 Hct 38.1 MCV 91 MCH 30.4 MCHC 33.5 RDW 13.9 Plt Count 284 Seg Neutrophils % Not Reportable Sodium 130.1 L Potassium 5.2 H Chloride 84 L Carbon Dioxide 42 H* Anion Gap 4 L BUN 12 Creatinine 0.23 L Est GFR ( Amer) > 60 Glucose 91 Calcium 8.4 Total Bilirubin 0.6 AST 42 H Alkaline Phosphatase 131 H Total Protein 5.3 L Albumin 2.8 L 07/01/19 07/01/19 06:41 06:41 Troponin I 0.022 NT-Pro-B Natriuret Pep 2740 H Impressions: Head CT 07/01/19 10:05 IMPRESSION: 1. No acute intracranial abnormality. 2. Opacification of the left frontal maxillary sinuses and left ethmoid air cells - correlate clinically to exclude an acute sinusitis. EVIDENCE OF ACUTE STROKE: NO. Abdomen/Pelvis CT 07/01/19 10:06 IMPRESSION: 1. Patchy areas of consolidation in the lower lobes suggestive of multifocal pneumonia. 2. No acute intra-abdominal abnormality. 3. Other findings as detailed above. Chest X-Ray 07/01/19 11:50 IMPRESSION: 1. Acute patchy an asymmetric bibasilar opacities (right greater than left) that could represent multifocal pneumonia. 2. Small bilateral pleural effusions. Chest CT 07/01/19 14:38 IMPRESSION: Findings as above are suggestive of multifocal pneumonia (given the patchy areas of consolidation in the lower lobes), on a background of volume overload (given the bilateral pleural effusions, thickening of the interlobular septa, and cardiomegaly). Status: Image reviewed by me Assessment & Plan - Diagnosis (1) Acute metabolic encephalopathy Is this a current diagnosis for this admission?: Yes Plan: Most likely multifactoral. believes it may have something to do with the lopressor or Eliquis. I have not seen this reaction before, but it is certainly possible. I would consider changing both of these medications. Consider Lovenox while in hospital, or Xarelto. Her kidney function is normal. I would discuss other options for the Lopressor with cardiology. May also be due to the hyponatremia. This is being treated. Or, may be due to pneumonia. CT brain was negative, but this was without contrast. (2) Atrial fibrillation Is this a current diagnosis for this admission?: Yes Plan: Per cardiology. (3) Hyponatremia Is this a current diagnosis for this admission?: Yes Plan: Fluid restriction. (4) Pneumonia Is this a current diagnosis for this admission?: Yes Plan: On appropriate antibiotics. Blood cultures are pending. (5) Breast cancer in female Qualifiers: Laterality: right Is this a current diagnosis for this admission?: Yes Plan: Continue Arimidex. I see no reason to stop this medication at this time. May consider MRI with contrast of the brain if no other cause for the confusion is found. - Plan Summary Plan Summary: Patient was discussed with Dr. De La Paz. Please call me if needed. I will continue to follow with you.
[2019-07-02] MEDS ORDERED: DILTIAZEM HCL 30 MG TABLET PO ONE (18:37)
--- NOTE | 2019-07-02 18:40 | Progress Note ---
Provider Note Provider Note: Discussed with oncology and cardiology. We will hold off on Lopressor for now. Lopressor does rarely cause nightmares, hallucination or occasional confusion. We will switch to dexter Martínez and see how she does with that.
[2019-07-02] MEDS: MONTELUKAST SODIUM 10 MG TABLET PO SCH (21:59)
[2019-07-02] MEDS: CLONAZEPAM 1 MG TABLET PO SCH (21:59)
[2019-07-02] MEDS: DILTIAZEM HCL 30 MG TABLET PO SCH (21:59)
--- NOTE | 2019-07-02 22:03 | PDOC CONSULTATION ---
Consultation Consult Date: 07/02/19 Provider Consulted: KONG NEELY Consult reason:: Atrial fibrillation. Patient readmitted with mental status changes. History of Present Illness Admission Date/PCP: 07/02/19 13:05 HAZEL MASON Patient complains of: Confusion History of Present Illness: AXEL NORMAN is a 78 year old female Who was recently evaluated in the hospital for atrial fibrillation with rapid ventricular response. She was started on systemic anticoagulation with apixaban 2.5 mg twice daily. She is known to have pneumothorax and breast cancer in the past. Pneumothorax has required surgical therapy. Breast cancer is supposed to be in remission. After being discharged on systemic anticoagulation and oral metoprolol patient presented with mental status changes. This is per the . At the time of my evaluation patient is somewhat confused and somnolent. Patient has had what appears to be unintentional weight loss as well. Past Medical History Cardiac Medical History: Denies: Coronary Artery Disease, Myocardial Infarction, Hypertension Pulmonary Medical History: Reports: Asthma, Chronic Obstructive Pulmonary Disease (COPD) - 3L [place] home o2., Pneumonia - 2009 Denies: Bronchitis Neurological Medical History: Denies: Seizures GI Medical History: Reports: Diverticulitis Musculoskeltal Medical History: Reports: Arthritis Psychiatric Medical History: Reports: Depression Hematology: Denies: Anemia, Sickle Cell Disease Past Surgical History Past Surgical History: Reports: Appendectomy, Mastectomy, Tubal Ligation Denies: Amputation, Hysterectomy Social History Lives with: Family Smoking Status: Former Smoker Electronic Cigarette use?: No Frequency of Alcohol Use: Social Hx Recreational Drug Use: No Drugs: None Hx Prescription Drug Abuse: No - Advance Directive Resuscitation Status: Full Code Family History Family History: Reviewed & Not Pertinent, COPD, Hypertension Parental Family History Reviewed: No - Unable to obtain Children Family History Reviewed: NA Sibling(s) Family History Reviewed.: NA Medication/Allergy Home Medications: Anastrozole [Arimidex 1 mg Tablet] 1 mg PO QAM 06/29/19 Calcium Carbonate/Vitamin D3 [Calcium 500-Vit D3 600 Caplet] 1 each PO DAILY 06/29/19 Clonazepam [Klonopin] 0.5 mg PO QHS 06/29/19 Fluticasone/Salmeterol [Advair 250-50 Diskus 14 Dose/Diskus] 1 puff IH Q12 06/29/19 Montelukast Sodium [Singulair 10 mg Tablet] 10 mg PO QHS 06/29/19 Sertraline HCl [Zoloft] 25 mg PO DAILY 06/29/19 Tiotropium [place] [Spiriva Respimat] 2 puff IH QAM 06/29/19 Apixaban [Eliquis 2.5 mg Tablet] 2.5 mg PO BID 07/01/19 Metoprolol Tartrate [Lopressor 25 mg Tablet] 25 mg PO Q12 07/01/19 Allergies/Adverse Reactions: ibuprofen [Ibuprofen] Allergy (Verified 06/29/19 12:05) ITCHING naproxen sodium [From Aleve] Allergy (Verified 06/29/19 12:05) ITCHING, PASSES OUT, SHOCK Penicillins Allergy (Verified 06/29/19 12:05) Hives theophylline anhydrous [From Theophyl] Allergy (Verified 06/29/19 12:05) Hives adhesive tape [Adhesive Tape] Adverse Reaction (Mild, Verified 06/29/19 12:05) rash, tears skin Review of Systems ROS unobtainable: Due to mental status Physical Exam Vital Signs: Temp Pulse Resp BP Pulse Ox 97.6 F 100 15 153/79 H 100 07/02/19 21:28 07/02/19 21:28 07/02/19 21:28 07/02/19 21:28 07/02/19 21:28 Intake & Output 07/01/19 07/02/19 07/03/19 06:59 06:59 06:59 Intake Total 410 390 Balance 410 390 Weight 41.458 kg 24.8 kg General appearance: PRESENT: thin Head exam: PRESENT: atraumatic, normocephalic Eye exam: PRESENT: EOMI Respiratory exam: PRESENT: crackles, decreased breath sounds, symmetrical, unlabored Cardiovascular exam: PRESENT: irregular rhythm - Telemetry shows sinus rhythm with PVCs and PACs, +S1, +S2 Pulses: PRESENT: normal radial pulses GI/Abdominal exam: PRESENT: soft Rectal exam: PRESENT: deferred Neurological exam: PRESENT: other - Unable to assess mental status. Patient is quite sleepy and somnolent Skin exam: PRESENT: dry, intact Results Laboratory Results: 07/02/19 10:47 07/02/19 10:47 07/02/19 07/02/19 10:47 10:47 WBC 10.6 H RBC 4.21 Hgb 12.8 Hct 38.1 MCV 91 MCH 30.4 MCHC 33.5 RDW 13.9 Plt Count 284 Seg Neutrophils % Not Reportable Sodium 130.1 L Potassium 5.2 H Chloride 84 L Carbon Dioxide 42 H* Anion Gap 4 L BUN 12 Creatinine 0.23 L Est GFR ( Amer) > 60 Glucose 91 Calcium 8.4 Total Bilirubin 0.6 AST 42 H Alkaline Phosphatase 131 H Total Protein 5.3 L Albumin 2.8 L 07/01/19 07/01/19 06:41 06:41 Troponin I 0.022 NT-Pro-B Natriuret Pep 2740 H EKG Comments: Telemetry was reviewed and shows sinus rhythm with PACs and PVCs. Impressions: Head CT 07/01/19 10:05 IMPRESSION: 1. No acute intracranial abnormality. 2. Opacification of the left frontal maxillary sinuses and left ethmoid air cells - correlate clinically to exclude an acute sinusitis. EVIDENCE OF ACUTE STROKE: NO. Abdomen/Pelvis CT 07/01/19 10:06 IMPRESSION: 1. Patchy areas of consolidation in the lower lobes suggestive of multifocal pneumonia. 2. No acute intra-abdominal abnormality. 3. Other findings as detailed above. Chest X-Ray 07/01/19 11:50 IMPRESSION: 1. Acute patchy an asymmetric bibasilar opacities (right greater than left) that could represent multifocal pneumonia. 2. Small bilateral pleural effusions. Chest CT 07/01/19 14:38 IMPRESSION: Findings as above are suggestive of multifocal pneumonia (given the patchy areas of consolidation in the lower lobes), on a background of volume overload (given the bilateral pleural effusions, thickening of the interlobular septa, and cardiomegaly). Assessment & Plan - Diagnosis (1) Atrial fibrillation Is this a current diagnosis for this admission?: Yes Plan: Presently patient is in sinus rhythm with PACs and PVCs. Given episodes of atrial fibrillation would recommend continuing systemic antico agulation. Apixaban 2.5 mg twice daily. Will be unusual for apixaban to cause mental status changes. Would recommend continued use of a rate control strategy. Apparently metoprolol appears to have caused her some mental status changes although nightmares and fatigue have been described confusion is rare. Can try alternate therapy with diltiazem instead.
[2019-07-02] MEDS ORDERED: LORAZEPAM INJ 2 MG/1 ML VIAL IV PRN (23:23)
[2019-07-02] MEDS ORDERED: DILTIAZEM HCL/D5W 125 MG/125 ML RTUINJ IV PRN (23:23)
[2019-07-03] MEDS: DILTIAZEM HCL 30 MG TABLET PO SCH ×3 (05:59→21:37)
[2019-07-03 09:00] LABS: ABSOLUTE BASOPHILS # (AUTO) 0.1 10^3/uL (0.0-0.2); ABSOLUTE LYMPHOCYTES (AUTO) 0.6 10^3/uL (0.5-4.7); ABSOLUTE MONOCYTES (AUTO) 0.6 10^3/uL (0.1-1.4); ABSOLUTE NEUT (AUTO) 8.1 10^3/uL (1.7-8.2); BASOPHILS % (AUTO) 0.9 % (0-2); EOSINOPHILS % (AUTO) 0.4 % (0-6); HEMATOCRIT 37.8 % (36.0-47.0); HEMOGLOBIN 12.8 g/dL (12.0-15.5); LYMPHOCYTES % (AUTO) 6.1 % (13-45); MEAN CORPUSCULAR HEMOGLOBIN 30.4 pg (27.0-33.4); MEAN CORPUSCULAR VOLUME 90 fl (80-97); MONOCYTES % (AUTO) 6.6 % (3-13); PLATELET COUNT 275 10^3/uL (150-450); RED BLOOD COUNT 4.22 10^6/uL (3.72-5.28); RED CELL DISTRIBUTION WIDTH 13.7 % (11.5-14.0); TOTAL CELLS COUNTED % (AUTO) 100 %; WHITE BLOOD COUNT 9.5 10^3/uL (4.0-10.5)
--- NOTE | 2019-07-03 09:20 | PDOC PROGRESS REPORT ---
Subjective Progress Note for:: 07/03/19 Subjective:: 78 year old female with a past medical history of chronic hypoxemic respiratory failure, COPD on 3 L of home O2, history of spontaneous pneumothorax, history of breast CA, and anxiety who was recently admitted and discharge yesterday for new onset A. fib with RVR. Patient was started on Cardizem drip initially and was weaned off and transition to oral Lopressor. Her heart rate was rate controlled. She was also started on Eliquis. She was discharged yesterday afternoon and was on her baseline mentation and was AO x4. brought her back to the ER today and reports that she got confused last night after she had a dose of Lopressor at home. He says that she had garbled speech and that she did not know where she was. She also reported on and off abdominal pain. says that he got another dose of Lopressor this morning and she had transient confusion again. In the ER, she was noted to have possible bilateral lower lobe pneumonia, leukocytosis and hyponatremia. Patient does have chronic moderately productive cough from her COPD/bronchitis. Upon encounter, she is oriented to person, place and knows the year. She is able to remember me from yesterday. She does not have focal neurologic deficits on examination. reports that she continues to have poor appetite at home and has not been drinking or eating well at home. Patient says that she has been having poor appetite in the past several months and has lost weight. 07/02/19- 78 year old female with a past medical history of chronic hypoxemic respiratory failure, COPD on 3 L of home O2, history of spontaneous pneumothorax, history of breast CA, and anxiety who was recently admitted and discharged for new onset A. fib with RVR. In the ER, she was noted to have possible bilateral lower lobe pneumonia, leukocytosis and hyponatremia. Patient does have chronic moderately productive cough from her COPD/bronchitis. She continues to have poor appetite at home. Chest CT did reveal bilateral lower lobe pneumonia. No acute event overnight. Denies any acute complaints upon encounter. Afib is rate controlle drunning in the 100-105 on tele. 07/03/2019-patient heart rate in the 90s still in A. fib. Patient is presently on diltiazem drip and also on diltiazem 30 mg p.o. every 8 hours. Cardiology on board. Plan is to increase the dose of diltiazem to 60 mg p.o. every 8 hours and discontinue diltiazem IV infusion. Patient pulse ox is in the 90s she is not on BiPAP for the last 3 days plan is to discontinue BiPAP. Comfortably in the bed communicating well. Not in distress. No signs of confusion. Reason For Visit: AFIB Physical Exam Vital Signs: Temp Pulse Resp BP Pulse Ox 97.5 F 53 L 16 122/64 96 07/03/19 07:53 07/03/19 07:53 07/03/19 07:53 07/03/19 07:53 07/03/19 07:53 Intake & Output 07/02/19 07/03/19 07/04/19 06:59 06:59 06:59 Intake Total 410 440 Output Total 0 Balance 410 440 Weight 24.8 kg 28.1 kg General appearance: PRESENT: no acute distress, thin Head exam: PRESENT: atraumatic Eye exam: PRESENT: PERRLA Mouth exam: PRESENT: moist, tongue midline Teeth exam: PRESENT: poor dentation Neck exam: ABSENT: carotid bruit, JVD, lymphadenopathy, thyromegaly Respiratory exam: PRESENT: decreased breath sounds Cardiovascular exam: PRESENT: irregular rhythm, systolic murmur GI/Abdominal exam: PRESENT: normal bowel sounds, soft. ABSENT: distended, guarding, mass, organolmegaly, rebound, tenderness Rectal exam: PRESENT: deferred Extremities exam: PRESENT: full ROM. ABSENT: calf tenderness, clubbing, pedal edema Neurological exam: PRESENT: alert, awake, oriented to person, oriented to place, oriented to time, oriented to situation, CN II-XII grossly intact. ABSENT: motor sensory deficit Psychiatric exam: PRESENT: appropriate affect, normal mood. ABSENT: homicidal ideation, suicidal ideation Results Laboratory Results: 07/03/19 08:15 07/03/19 08:15 07/02/19 07/02/19 07/03/19 10:47 10:47 08:15 WBC 10.6 H 9.5 RBC 4.21 4.22 Hgb 12.8 12.8 Hct 38.1 37.8 MCV 91 90 MCH 30.4 30.4 MCHC 33.5 34.0 RDW 13.9 13.7 Plt Count 284 275 Seg Neutrophils % Not Reportable 86.0 H Sodium 130.1 L Potassium 5.2 H Chloride 84 L Carbon Dioxide 42 H* Anion Gap 4 L BUN 12 Creatinine 0.23 L Est GFR ( Amer) > 60 Est GFR (Non-Af Amer) Glucose 91 Calcium 8.4 Magnesium Total Bilirubin 0.6 AST 42 H Alkaline Phosphatase 131 H Total Protein 5.3 L Albumin 2.8 L 07/03/19 08:15 WBC RBC Hgb Hct MCV MCH MCHC RDW Plt Count Seg Neutrophils % Sodium Cancelled Potassium Cancelled Chloride Cancelled Carbon Dioxide Cancelled Anion Gap Cancelled BUN Cancelled Creatinine Cancelled Est GFR ( Amer) Cancelled Est GFR (Non-Af Amer) Cancelled Glucose Cancelled Calcium Cancelled Magnesium Cancelled Total Bilirubin Cancelled AST Cancelled Alkaline Phosphatase Cancelled Total Protein Cancelled Albumin Cancelled 07/01/19 07/01/19 06:41 06:41 Troponin I 0.022 NT-Pro-B Natriuret Pep 2740 H Impressions: Head CT 07/01/19 10:05 IMPRESSION: 1. No acute intracranial abnormality. 2. Opacification of the left frontal maxillary sinuses and left ethmoid air cells - correlate clinically to exclude an acute sinusitis. EVIDENCE OF ACUTE STROKE: NO. Abdomen/Pelvis CT 07/01/19 10:06 IMPRESSION: 1. Patchy areas of consolidation in the lower lobes suggestive of multifocal pneumonia. 2. No acute intra-abdominal abnormality. 3. Other findings as detailed above. Chest X-Ray 07/01/19 11:50 IMPRESSION: 1. Acute patchy an asymmetric bibasilar opacities (right greater than left) that could represent multifocal pneumonia. 2. Small bilateral pleural effusions. Chest CT 07/01/19 14:38 IMPRESSION: Findings as above are suggestive of multifocal pneumonia (given the patchy areas of consolidation in the lower lobes), on a background of volume overload (given the bilateral pleural effusions, thickening of the interlobular septa, and cardiomegaly). Assessment and Plan - Diagnosis (1) Acute metabolic encephalopathy Is this a current diagnosis for this admission?: Yes Plan: Likely multifactorial from multifocal pneumonia, dehydration, and hyponatremia. 07/02: Improved. 06/23-acute metabolic encephalopathy resolved. Initial thought processes it may be secondary to Lopressor. Plan is to discontinue Lopressor from this morning. Alert awake communicating well not in distress. (2) Multifocal pneumonia Is this a current diagnosis for this admission?: Yes Plan: Will pursue a chest CT. Chest x-ray did shows new infiltrates not appreciated on chest x-ray done the other day. She did came in dehydrated the other day and hence likely affected the initial chest x-ray findings. Will start IV levofloxacin. Also order sputum culture. 07/02: Chest CT did reveal bilateral lower lobe pneumonia. Pneumonia was likely masked by dehydration when she first came in. Cot[place]ue IV Levaquin. 07/03/2019 CT scan of the chest indicates multifocal pneumonia presently on IV levofloxacillin. Afebrile. T-max is 97.4. Cultures are negative. Plan is to continue the IV antibiotic therapy for today. (3) Atrial fibrillation Is this a current diagnosis for this admission?: Yes Plan: Rate-controlled. Pneumonia likely contributory. Continue eliquis and lopressor. 07/03-patient has recent history of atrial fibrillation and Eliquis and Lopressor. Lopressor is going to be discontinued today and to discontinue diltiazem drip and increase the dose of diltiazem to 60 mg p.o. [address] Dajuan you is on board. (4) Hepatic lesion Is this a current diagnosis for this admission?: Yes Plan: Reported to be likely benign. Will consult patient's oncologist who has been following her for her history of breast cancer for further evaluation as well. 07/02: report she did have liver biopsy few years back and was told findings were benign. (5) Hyponatremia Is this a current diagnosis for this admission?: Yes Plan: Improved with IV fluids. 07/03/2019-patient is presently not on IV fluids and latest serum sodium is 130 today's labs are pending.
[2019-07-03 09:40] LABS: ALBUMIN 2.8 g/dL (3.5-5.0); ALKALINE PHOSPHATASE 119 U/L (38-126); ASPARTATE AMINO TRANSFERASE 33 U/L (14-36); BILIRUBIN,DIRECT 0.1 mg/dL (0.0-0.4); BILIRUBIN,TOTAL 0.5 mg/dL (0.2-1.3); BLOOD UREA NITROGEN 9 mg/dL (7-20); CALCIUM 8.4 mg/dL (8.4-10.2); CHLORIDE 83 mmol/L (98-107); GLUCOSE 99 mg/dL (75-110); POTASSIUM 4.7 mmol/L (3.6-5.0); TOTAL PROTEIN 5.3 g/dL (6.3-8.2)
[2019-07-03 09:55] LABS: ANION GAP 6 (5-19); CARBON DIOXIDE 39 mmol/L (22-30)
[2019-07-03] MEDS ORDERED: DILTIAZEM HCL 120 MG CAP.SR.24H PO SCH (10:00)
[2019-07-03] MEDS: SERTRALINE HCL 50 MG TABLET PO SCH (10:19)
[2019-07-03] MEDS: UMECLIDINIUM BROMIDE 62.5 MCG/DOSE IH SCH (10:20)
[2019-07-03] MEDS: FLUTICASONE/VILANTEROL 200-25 MCG/DOSE IH SCH (10:20)
[2019-07-03] MEDS: ANASTROZOLE 1 MG TABLET PO SCH (10:21)
[2019-07-03] MEDS: CALCIUM CARBONATE 500 MG TABLET PO SCH (10:21)
[2019-07-03] MEDS: LEVOFLOXACIN 750 MG/D5W RTU 750 MG/150 ML RTUPB IV SCH (10:22)
[2019-07-03] MEDS: APIXABAN 2.5 MG TABLET PO SCH ×2 (10:22→17:26)
[2019-07-03] MEDS: CHOLECALCIFEROL (D3) 400 UNIT TABLET PO SCH (10:22)
--- NOTE | 2019-07-03 12:01 | PDOC PROGRESS REPORT ---
Subjective Progress Note for:: 07/03/19 Subjective:: Patient seen and examined. Confusion is improved. Reason For Visit: AFIB Physical Exam Vital Signs: Temp Pulse Resp BP Pulse Ox 97.5 F 84 16 122/64 97 07/03/19 07:53 07/03/19 08:00 07/03/19 08:00 07/03/19 07:53 07/03/19 08:00 Intake & Output 07/02/19 07/03/19 07/04/19 06:59 06:59 06:59 Intake Total 410 440 Output Total 0 Balance 410 440 Weight 24.8 kg 28.1 kg General appearance: PRESENT: no acute distress, cooperative, thin Head exam: PRESENT: atraumatic, normocephalic Eye exam: PRESENT: EOMI Mouth exam: PRESENT: moist Respiratory exam: PRESENT: crackles - Right lung base, decreased breath sounds, rales, symmetrical, unlabored Cardiovascular exam: PRESENT: irregular rhythm, +S1, +S2, other - Telemetry shows sinus rhythm with PACs Pulses: PRESENT: normal radial pulses GI/Abdominal exam: PRESENT: soft Rectal exam: PRESENT: deferred Neurological exam: PRESENT: alert, oriented to person Skin exam: PRESENT: dry, intact, normal color Results Laboratory Results: 07/03/19 08:15 07/03/19 09:15 07/02/19 07/02/19 07/03/19 10:47 10:47 08:15 WBC 10.6 H 9.5 RBC 4.21 4.22 Hgb 12.8 12.8 Hct 38.1 37.8 MCV 91 90 MCH 30.4 30.4 MCHC 33.5 34.0 RDW 13.9 13.7 Plt Count 284 275 Seg Neutrophils % Not Reportable 86.0 H Sodium 130.1 L Potassium 5.2 H Chloride 84 L Carbon Dioxide 42 H* Anion Gap 4 L BUN 12 Creatinine 0.23 L Est GFR ( Amer) > 60 Est GFR (Non-Af Amer) Glucose 91 Calcium 8.4 Magnesium Total Bilirubin 0.6 AST 42 H Alkaline Phosphatase 131 H Total Protein 5.3 L Albumin 2.8 L 07/03/19 07/03/19 08:15 09:15 WBC RBC Hgb Hct MCV MCH MCHC RDW Plt Count Seg Neutrophils % Sodium Cancelled 128.4 L Potassium Cancelled 4.7 Chloride Cancelled 83 L Carbon Dioxide Cancelled 39 H Anion Gap Cancelled 6 BUN Cancelled 9 Creatinine Cancelled 0.20 L Est GFR ( Amer) Cancelled > 60 Est GFR (Non-Af Amer) Cancelled Glucose Cancelled 99 Calcium Cancelled 8.4 Magnesium Cancelled 1.9 Total Bilirubin Cancelled 0.5 AST Cancelled 33 Alkaline Phosphatase Cancelled 119 Total Protein Cancelled 5.3 L Albumin Cancelled 2.8 L 07/01/19 07/01/19 06:41 06:41 Troponin I 0.022 NT-Pro-B Natriuret Pep 2740 H Impressions: Head CT 07/01/19 10:05 IMPRESSION: 1. No acute intracranial abnormality. 2. Opacification of the left frontal maxillary sinuses and left ethmoid air cells - correlate clinically to exclude an acute sinusitis. EVIDENCE OF ACUTE STROKE: NO. Abdomen/Pelvis CT 07/01/19 10:06 IMPRESSION: 1. Patchy areas of consolidation in the lower lobes suggestive of multifocal pneumonia. 2. No acute intra-abdominal abnormality. 3. Other findings as detailed above. Chest X-Ray 07/01/19 11:50 IMPRESSION: 1. Acute patchy an asymmetric bibasilar opacities (right greater than left) that could represent multifocal pneumonia. 2. Small bilateral pleural effusions. Chest CT 07/01/19 14:38 IMPRESSION: Findings as above are suggestive of multifocal pneumonia (given the patchy areas of consolidation in the lower lobes), on a background of volume overload (given the bilateral pleural effusions, thickening of the interlobular septa, and cardiomegaly). Assessment & Plan - Diagnosis (1) Atrial fibrillation Is this a current diagnosis for this admission?: Yes Plan: Continue to observe on telemetry Continue systemic anticoagulation apixaban 2.5 mg twice daily Rate control strategy only for this patient. With patient presently being in sinus rhythm will glide and discontinue diltiazem infusion Start oral diltiazem at lowest possible dose. This will help with rate control should she go into atrial fibrillation and also help prevent triggers for atrial fibrillation
[2019-07-03] MEDS: MONTELUKAST SODIUM 10 MG TABLET PO SCH (21:37)
[2019-07-03] MEDS: CLONAZEPAM 1 MG TABLET PO SCH (21:38)
[2019-07-04] MEDS: DILTIAZEM HCL 30 MG TABLET PO SCH ×2 (05:35→13:51)
[2019-07-04] MEDS: UMECLIDINIUM BROMIDE 62.5 MCG/DOSE IH SCH (08:38)
[2019-07-04] MEDS: ANASTROZOLE 1 MG TABLET PO SCH (08:38)
[2019-07-04 08:40] LABS: ABSOLUTE BASOPHILS # (AUTO) 0.1 10^3/uL (0.0-0.2); ABSOLUTE EOSINOPHILS # (AUTO) 0.1 10^3/uL (0.0-0.6); ABSOLUTE LYMPHOCYTES (AUTO) 0.7 10^3/uL (0.5-4.7); ABSOLUTE MONOCYTES (AUTO) 0.6 10^3/uL (0.1-1.4); ABSOLUTE NEUT (AUTO) 7.2 10^3/uL (1.7-8.2); BASOPHILS % (AUTO) 0.6 % (0-2); EOSINOPHILS % (AUTO) 0.6 % (0-6); HEMATOCRIT 40.8 % (36.0-47.0); HEMOGLOBIN 13.9 g/dL (12.0-15.5); LYMPHOCYTES % (AUTO) 8.1 % (13-45); MEAN CORPUSCULAR HEMOGLOBIN 30.4 pg (27.0-33.4); MEAN CORPUSCULAR VOLUME 89 fl (80-97); PLATELET COUNT 332 10^3/uL (150-450); RED BLOOD COUNT 4.58 10^6/uL (3.72-5.28); RED CELL DISTRIBUTION WIDTH 13.9 % (11.5-14.0); SEGMENTED NEUTROPHILS % (AUTO) 83.7 % (42-78); TOTAL CELLS COUNTED % (AUTO) 100 %; WHITE BLOOD COUNT 8.6 10^3/uL (4.0-10.5)
[2019-07-04 09:10] LABS: ALBUMIN 3.1 g/dL (3.5-5.0); ALKALINE PHOSPHATASE 135 U/L (38-126); ANION GAP 6 (5-19); ASPARTATE AMINO TRANSFERASE 29 U/L (14-36); BILIRUBIN,DIRECT 0.3 mg/dL (0.0-0.4); BILIRUBIN,TOTAL 0.5 mg/dL (0.2-1.3); BLOOD UREA NITROGEN 6 mg/dL (7-20); CALCIUM 8.5 mg/dL (8.4-10.2); CARBON DIOXIDE 39 mmol/L (22-30); CHLORIDE 84 mmol/L (98-107); GLUCOSE 106 mg/dL (75-110); POTASSIUM 4.5 mmol/L (3.6-5.0); TOTAL PROTEIN 5.7 g/dL (6.3-8.2)
--- NOTE | 2019-07-04 09:19 | PDOC PROGRESS REPORT ---
Subjective Progress Note for:: 07/04/19 Subjective:: 78 year old female with a past medical history of chronic hypoxemic respiratory failure, COPD on 3 L of home O2, history of spontaneous pneumothorax, history of breast CA, and anxiety who was recently admitted and discharge yesterday for new onset A. fib with RVR. Patient was started on Cardizem drip initially and was weaned off and transition to oral Lopressor. Her heart rate was rate controlled. She was also started on Eliquis. She was discharged yesterday afternoon and was on her baseline mentation and was AO x4. brought her back to the ER today and reports that she got confused last night after she had a dose of Lopressor at home. He says that she had garbled speech and that she did not know where she was. She also reported on and off abdominal pain. says that he got another dose of Lopressor this morning and she had transient confusion again. In the ER, she was noted to have possible bilateral lower lobe pneumonia, leukocytosis and hyponatremia. Patient does have chronic moderately productive cough from her COPD/bronchitis. Upon encounter, she is oriented to person, place and knows the year. She is able to remember me from yesterday. She does not have focal neurologic deficits on examination. reports that she continues to have poor appetite at home and has not been drinking or eating well at home. Patient says that she has been having poor appetite in the past several months and has lost weight. 07/02/19- 78 year old female with a past medical history of chronic hypoxemic respiratory failure, COPD on 3 L of home O2, history of spontaneous pneumothorax, history of breast CA, and anxiety who was recently admitted and discharged for new onset A. fib with RVR. In the ER, she was noted to have possible bilateral lower lobe pneumonia, leukocytosis and hyponatremia. Patient does have chronic moderately productive cough from her COPD/bronchitis. She continues to have poor appetite at home. Chest CT did reveal bilateral lower lobe pneumonia. No acute event overnight. Denies any acute complaints upon encounter. Afib is rate controlle drunning in the 100-105 on tele. 07/03/2019-patient heart rate in the 90s still in A. fib. Patient is presently on diltiazem drip and also on diltiazem 30 mg p.o. every 8 hours. Cardiology on board. Plan is to increase the dose of diltiazem to 60 mg p.o. every 8 hours and discontinue diltiazem IV infusion. Patient pulse ox is in the 90s she is not on BiPAP for the last 3 days plan is to discontinue BiPAP. Comfortably in the bed communicating well. Not in distress. No signs of confusion. 07/04/19-78--year-old female with recent history of atrial fibrillation started on her metoprolol and Eliquis admitted for acute metabolic encephalopathy. Which was resolved. Metoprolol was discontinued patient is presently on diltiazem 60 mg p.o. 3 times daily. Heart rate is around 90. This morning patient alert awake communicating well not in distress. Reason For Visit: AFIB Physical Exam Vital Signs: Temp Pulse Resp BP Pulse Ox 97.6 F 90 16 147/77 H 93 07/04/19 07:35 07/04/19 07:35 07/04/19 07:35 07/04/19 07:35 07/04/19 07:35 Intake & Output 07/03/19 07/04/19 07/05/19 06:59 06:59 06:59 Intake Total 440 479 Output Total 0 1600 Balance 440 -1121 Weight 28.1 kg 24.1 kg General appearance: PRESENT: no acute distress, disheveled, thin Head exam: PRESENT: atraumatic Eye exam: PRESENT: PERRLA Mouth exam: PRESENT: moist, tongue midline Teeth exam: PRESENT: poor dentation Neck exam: ABSENT: carotid bruit, JVD, lymphadenopathy, thyromegaly Respiratory exam: PRESENT: decreased breath sounds Cardiovascular exam: PRESENT: tachycardia GI/Abdominal exam: PRESENT: normal bowel sounds, soft. ABSENT: distended, guarding, mass, organolmegaly, rebound, tenderness Rectal exam: PRESENT: deferred Extremities exam: PRESENT: full ROM. ABSENT: calf tenderness, clubbing, pedal edema Neurological exam: PRESENT: alert, awake, oriented to person, oriented to place, oriented to time, oriented to situation, CN II-XII grossly intact. ABSENT: motor sensory deficit Psychiatric exam: PRESENT: appropriate affect, normal mood. ABSENT: homicidal ideation, suicidal ideation Results Laboratory Results: 07/04/19 07:57 07/03/19 07/04/19 09:15 07:57 WBC 8.6 RBC 4.58 Hgb 13.9 Hct 40.8 MCV 89 MCH 30.4 MCHC 34.0 RDW 13.9 Plt Count 332 Seg Neutrophils % 83.7 H Sodium 128.4 L Potassium 4.7 Chloride 83 L Carbon Dioxide 39 H Anion Gap 6 BUN 9 Creatinine 0.20 L Est GFR ( Amer) > 60 Glucose 99 Calcium 8.4 Magnesium 1.9 Total Bilirubin 0.5 AST 33 Alkaline Phosphatase 119 Total Protein 5.3 L Albumin 2.8 L 07/01/19 07/01/19 06:41 06:41 Troponin I 0.022 NT-Pro-B Natriuret Pep 2740 H Impressions: Head CT 07/01/19 10:05 IMPRESSION: 1. No acute intracranial abnormality. 2. Opacification of the left frontal maxillary sinuses and left ethmoid air cells - correlate clinically to exclude an acute sinusitis. EVIDENCE OF ACUTE STROKE: NO. Abdomen/Pelvis CT 07/01/19 10:06 IMPRESSION: 1. Patchy areas of consolidation in the lower lobes suggestive of multifocal pneumonia. 2. No acute intra-abdominal abnormality. 3. Other findings as detailed above. Chest X-Ray 07/01/19 11:50 IMPRESSION: 1. Acute patchy an asymmetric bibasilar opacities (right greater than left) that could represent multifocal pneumonia. 2. Small bilateral pleural effusions. Chest CT 07/01/19 14:38 IMPRESSION: Findings as above are suggestive of multifocal pneumonia (given the patchy areas of consolidation in the lower lobes), on a background of volume overload (given the bilateral pleural effusions, thickening of the interlobular septa, and cardiomegaly). Assessment and Plan - Diagnosis (1) Acute metabolic encephalopathy Is this a current diagnosis for this admission?: Yes Plan: Likely multifactorial from multifocal pneumonia, dehydration, and hyponatremia. 07/02: Improved. 07/03-acute metabolic encephalopathy resolved. Initial thought processes it may be secondary to Lopressor. Plan is to discontinue Lopressor from this morning. Alert awake communicating well not in distress. 07/04/2019-patient admitted with acute metabolic encephalopathy may be multifactorial. Which was resolved. is concerned about Lopressor causing altered mental status Lopressor was discontinued yesterday , patient is presently on diltiazem. (2) Multifocal pneumonia Is this a current diagnosis for this admission?: Yes Plan: Will pursue a chest CT. Chest x-ray did shows new infiltrates not appreciated on chest x-ray done the other day. She did came in dehydrated the other day and hence likely affected the initial chest x-ray findings. Will start IV levofloxacin. Also order sputum culture. 07/02: Chest CT did reveal bilateral lower lobe pneumonia. Pneumonia was likely masked by dehydration when she first came in. Cotninue IV Levaquin. 07/03/2019 CT scan of the chest indicates multifocal pneumonia presently on IV levofloxacillin. Afebrile. T-max is 97.4. Cultures are negative. Plan is to continue the IV antibiotic therapy for today. 07/04/2019-patient admitted with community-acquired pneumonia, blood cultures are negative after 48 hours, patient is on iv levofloxacin. (3) Atrial fibrillation Is this a current diagnosis for this admission?: Yes Plan: Rate-controlled. Pneumonia likely contributory. Continue eliquis and lopressor. 07/03-patient has recent history of atrial fibrillation and Eliquis and Lopressor. Lopressor is going to be discontinued today and to discontinue diltiazem drip and increase the dose of diltiazem to 60 mg p.o. [address] Dajuan stephenson is on board. 07/04/2019-patient has recently diagnosed history of atrial fibrillation presently on Eliquis and diltiazem. Still in A. fib with rate controlled heart rate is around 90. Plan is to continue diltiazem 60 mg p.o. every 8 hours diltiazem infusion was discontinued yesterday. Dr. Dajuan Stephenson is following the patient. (4) Hepatic lesion Is this a current diagnosis for this admission?: Yes Plan: Reported to be likely benign. Will consult patient's oncologist who has been following her for her history of breast cancer for further evaluation as well. 07/02: report she did have liver biopsy few years back and was told findings were benign. 07/04/2019-patient has history of breast cancer, oncology consult was done recommendation is to continue Arimidex. (5) Hyponatremia Is this a current diagnosis for this admission?: Yes Plan: Improved with IV fluids. 07/03/2019-patient is presently not on IV fluids and latest serum sodium is 130 today's labs are pending. 07/04/2019-latest serum sodium is 128.4. Persistent hyponatremia may be secondary to malignancy. Patient has history of breast cancer on Arimidex.
[2019-07-04] MEDS: CALCIUM CARBONATE 500 MG TABLET PO SCH (11:14)
[2019-07-04] MEDS: APIXABAN 2.5 MG TABLET PO SCH ×2 (11:14→17:18)
[2019-07-04] MEDS: SERTRALINE HCL 50 MG TABLET PO SCH (11:14)
[2019-07-04] MEDS: LEVOFLOXACIN 750 MG/D5W RTU 750 MG/150 ML RTUPB IV SCH (11:15)
[2019-07-04] MEDS: FLUTICASONE/VILANTEROL 200-25 MCG/DOSE IH SCH (11:15)
[2019-07-04] MEDS: CHOLECALCIFEROL (D3) 400 UNIT TABLET PO SCH (11:15)
[2019-07-04] MEDS: CLONAZEPAM 1 MG TABLET PO SCH (21:49)
[2019-07-04] MEDS: MONTELUKAST SODIUM 10 MG TABLET PO SCH (21:49)
[2019-07-04] MEDS: DILTIAZEM HCL 60 MG TABLET PO SCH (21:49)
[2019-07-05] MEDS: DILTIAZEM HCL 60 MG TABLET PO SCH ×3 (06:13→17:36)
--- NOTE | 2019-07-05 08:07 | PDOC PROGRESS REPORT ---
Subjective Progress Note for:: 07/05/19 Subjective:: Patient initially asleep with very little response, but she did then awaken, smile and say good morning. This is a great improvement from previously. Nurses report no new issues, just continuing treatments. No family at bedside this morning. Reason For Visit: AFIB Physical Exam Vital Signs: Temp Pulse Resp BP Pulse Ox 97.9 F 120 H 16 114/47 L 94 07/05/19 07:14 07/05/19 07:14 07/05/19 07:14 07/05/19 07:14 07/05/19 07:14 Intake & Output 07/04/19 07/05/19 07/06/19 06:59 06:59 06:59 Intake Total 479 520 Output Total 1600 1450 Balance -1121 -930 Weight 24.1 kg 40.7 kg General appearance: PRESENT: no acute distress Head exam: PRESENT: normocephalic Respiratory exam: PRESENT: clear to auscultation henri, unlabored Cardiovascular exam: PRESENT: irregular rhythm GI/Abdominal exam: PRESENT: soft. ABSENT: tenderness Extremities exam: ABSENT: pedal edema Neurological exam: PRESENT: awake Skin exam: PRESENT: normal color Results Laboratory Results: 07/04/19 07:57 07/04/19 07:57 07/04/19 07/04/19 07:57 07:57 WBC 8.6 RBC 4.58 Hgb 13.9 Hct 40.8 MCV 89 MCH 30.4 MCHC 34.0 RDW 13.9 Plt Count 332 Seg Neutrophils % 83.7 H Sodium 128.8 L Potassium 4.5 Chloride 84 L Carbon Dioxide 39 H Anion Gap 6 BUN 6 L Creatinine 0.27 L Est GFR ( Amer) > 60 Glucose 106 Calcium 8.5 Magnesium 1.9 Total Bilirubin 0.5 AST 29 Alkaline Phosphatase 135 H Total Protein 5.7 L Albumin 3.1 L 07/01/19 07/01/19 06:41 06:41 Troponin I 0.022 NT-Pro-B Natriuret Pep 2740 H Impressions: Head CT 07/01/19 10:05 IMPRESSION: 1. No acute intracranial abnormality. 2. Opacification of the left frontal maxillary sinuses and left ethmoid air cells - correlate clinically to exclude an acute sinusitis. EVIDENCE OF ACUTE STROKE: NO. Abdomen/Pelvis CT 07/01/19 10:06 IMPRESSION: 1. Patchy areas of consolidation in the lower lobes suggestive of multifocal pneumonia. 2. No acute intra-abdominal abnormality. 3. Other findings as detailed above. Chest X-Ray 07/01/19 11:50 IMPRESSION: 1. Acute patchy an asymmetric bibasilar opacities (right greater than left) that could represent multifocal pneumonia. 2. Small bilateral pleural effusions. Chest CT 07/01/19 14:38 IMPRESSION: Findings as above are suggestive of multifocal pneumonia (given the patchy areas of consolidation in the lower lobes), on a background of volume overload (given the bilateral pleural effusions, thickening of the interlobular septa, and cardiomegaly). Assessment & Plan - Diagnosis (1) Acute metabolic encephalopathy Is this a current diagnosis for this admission?: Yes Plan: Slowly resolving. (2) Atrial fibrillation Is this a current diagnosis for this admission?: Yes Plan: As per Cardiology. Currently not receiving any IVs. (3) Hyponatremia Is this a current diagnosis for this admission?: Yes Plan: Still present and stable, but not improving. This may be due to her longstanding pulmonary problems. (4) Pneumonia Is this a current diagnosis for this admission?: Yes Plan: Currently receiving appropriate ABX. Blood cultures are NGTD. (5) Breast cancer in female Qualifiers: Laterality: right Is this a current diagnosis for this admission?: Yes Plan: No evidence of active cancer currently. Continue Arimidex. - Time Time Spent with patient: Less than 15 minutes - Plan Summary Plan Summary: Will follow as outpatient. Please call if needed.
[2019-07-05] MEDS: LEVOFLOXACIN 750 MG/D5W RTU 750 MG/150 ML RTUPB IV SCH (10:02)
[2019-07-05] MEDS: ANASTROZOLE 1 MG TABLET PO SCH (10:03)
[2019-07-05] MEDS: SERTRALINE HCL 50 MG TABLET PO SCH (10:03)
[2019-07-05] MEDS: CALCIUM CARBONATE 500 MG TABLET PO SCH (10:03)
[2019-07-05] MEDS: APIXABAN 2.5 MG TABLET PO SCH ×2 (10:03→17:36)
[2019-07-05] MEDS: UMECLIDINIUM BROMIDE 62.5 MCG/DOSE IH SCH (10:05)
[2019-07-05] MEDS: FLUTICASONE/VILANTEROL 200-25 MCG/DOSE IH SCH (10:05)
[2019-07-05] MEDS: CHOLECALCIFEROL (D3) 400 UNIT TABLET PO SCH (10:05)
--- NOTE | 2019-07-05 14:25 | PDOC PROGRESS REPORT ---
Subjective Progress Note for:: 07/05/19 Reason For Visit: AFIB 07/05/2019 Patient was admitted through the emergency room for confusion. Patient had just recently been discharged home from the hospital. Patient does have what appears to be bilateral lower lobe pneumonias Physical Exam Vital Signs: Temp Pulse Resp BP Pulse Ox 97.4 F 120 H 17 109/45 L 94 07/05/19 11:32 07/05/19 11:32 07/05/19 11:32 07/05/19 11:32 07/05/19 11:32 Intake & Output 07/04/19 07/05/19 07/06/19 06:59 06:59 06:59 Intake Total 479 520 Output Total 1600 1450 Balance -1121 -930 Weight 24.1 kg 40.7 kg General appearance: PRESENT: no acute distress, thin, well-developed, well- nourished Respiratory exam: PRESENT: clear to auscultation henri. ABSENT: rales, rhonchi, wheezes Cardiovascular exam: PRESENT: RRR. ABSENT: diastolic murmur, rubs, systolic murmur Neurological exam: PRESENT: alert, awake, oriented to person, oriented to place, oriented to time, oriented to situation, CN II-XII grossly intact. ABSENT: motor sensory deficit Psychiatric exam: PRESENT: agitated, unusual affect, other - Patient seems exasperated with the situation Results Laboratory Results: 07/04/19 07:57 07/04/19 07:57 07/01/19 07/01/19 06:41 06:41 Troponin I 0.022 NT-Pro-B Natriuret Pep 2740 H Impressions: Head CT 07/01/19 10:05 IMPRESSION: 1. No acute intracranial abnormality. 2. Opacification of the left frontal maxillary sinuses and left ethmoid air cells - correlate clinically to exclude an acute sinusitis. EVIDENCE OF ACUTE STROKE: NO. Abdomen/Pelvis CT 07/01/19 10:06 IMPRESSION: 1. Patchy areas of consolidation in the lower lobes suggestive of multifocal pneumonia. 2. No acute intra-abdominal abnormality. 3. Other findings as detailed above. Chest X-Ray 07/01/19 11:50 IMPRESSION: 1. Acute patchy an asymmetric bibasilar opacities (right greater than left) that could represent multifocal pneumonia. 2. Small bilateral pleural effusions. Chest CT 07/01/19 14:38 IMPRESSION: Findings as above are suggestive of multifocal pneumonia (given the patchy areas of consolidation in the lower lobes), on a background of volume overload (given the bilateral pleural effusions, thickening of the interlobular septa, and cardiomegaly). Assessment and Plan - Diagnosis (1) Acute metabolic encephalopathy Is this a current diagnosis for this admission?: Yes (2) Atrial fibrillation Is this a current diagnosis for this admission?: Yes (3) Confusion Is this a current diagnosis for this admission?: Yes (4) Hyponatremia Is this a current diagnosis for this admission?: Yes (5) Multifocal pneumonia Is this a current diagnosis for this admission?: Yes (6) Dehydration Is this a current diagnosis for this admission?: Yes (7) Acute exacerbation of chronic obstructive pulmonary disease (COPD) Is this a current diagnosis for this admission?: Yes (8) Atrial fibrillation Is this a current diagnosis for this admission?: Yes - Plan Summary Summary: 07/05/2019 Patient's tells me that within about the last 5 years she was told by bar gauger and lubricator tender that her sodium levels are low and that she is 1 of the few individuals that needs to consume a lot of salt. Patient was admitted this time with confusion and bilateral lower lobe pneumonia. Temperature 97.9 pulse 120. Patient's pulse has been anywhere from a low of 53 up to as high as 120, Baseline appears to be about 90. Pressure stable 114/47 O2 sat 94% on 3 L nasal cannula Patient is currently on IV Levaquin Was seen in consultation by oncology for medical history of breast cancer, patient is currently on a REM index, oncology has signed off Patient's Lopressor was discontinued and she was changed instead to Cardizem 60 mg every 8 hours. Due to patient's continued elevated heart rate, will increase her Cardizem to every 6 hours. Yesterday's labs showed a normal CBC Yesterday's chemistry showed sodium 128 potassium 4.5 BUN is 6 creatinine 0.27 Blood culture showed no growth in 72 hours - Time Time Spent with patient: 25-34 minutes
--- NOTE | 2019-07-05 15:16 | PDOC PROGRESS REPORT ---
Subjective Progress Note for:: 07/05/19 Subjective:: Patient seen and examined. Patient had hyponatremia which is improving. This may have contributed to her mental status changes. Presently being treated for a pneumonia. Patient is back in atrial fibrillation with controlled ventricular response. Reason For Visit: AFIB Physical Exam Vital Signs: Temp Pulse Resp BP Pulse Ox 97.4 F 120 H 17 109/45 L 94 07/05/19 11:32 07/05/19 11:32 07/05/19 11:32 07/05/19 11:32 07/05/19 11:32 Intake & Output 07/04/19 07/05/19 07/06/19 06:59 06:59 06:59 Intake Total 479 520 220 Output Total 1600 1450 400 Balance -1121 -930 -180 Weight 24.1 kg 40.7 kg General appearance: PRESENT: thin Head exam: PRESENT: atraumatic, normocephalic Eye exam: PRESENT: EOMI Respiratory exam: PRESENT: crackles, decreased breath sounds, symmetrical, unlabored Cardiovascular exam: PRESENT: irregular rhythm, +S1, +S2 Pulses: PRESENT: normal radial pulses GI/Abdominal exam: PRESENT: soft Rectal exam: PRESENT: deferred Neurological exam: PRESENT: alert, awake, oriented to person Skin exam: PRESENT: dry, intact Results Laboratory Results: 07/04/19 07:57 07/04/19 07:57 07/01/19 07/01/19 06:41 06:41 Troponin I 0.022 NT-Pro-B Natriuret Pep 2740 H EKG Comments: Telemetry shows atrial fibrillation controlled ventricular response. Impressions: Head CT 07/01/19 10:05 IMPRESSION: 1. No acute intracranial abnormality. 2. Opacification of the left frontal maxillary sinuses and left ethmoid air cells - correlate clinically to exclude an acute sinusitis. EVIDENCE OF ACUTE STROKE: NO. Abdomen/Pelvis CT 07/01/19 10:06 IMPRESSION: 1. Patchy areas of consolidation in the lower lobes suggestive of multifocal pneumonia. 2. No acute intra-abdominal abnormality. 3. Other findings as detailed above. Chest CT 07/01/19 14:38 IMPRESSION: Findings as above are suggestive of multifocal pneumonia (given the patchy areas of consolidation in the lower lobes), on a background of volume overload (given the bilateral pleural effusions, thickening of the interlobular septa, and cardiomegaly). Assessment & Plan - Diagnosis (1) Atrial fibrillation Is this a current diagnosis for this admission?: Yes Plan: Continue to observe on telemetry Continue systemic anticoagulation apixaban 2.5 mg twice daily Rate control strategy only for this patient. Low-dose diltiazem for rate control and to suppress triggers for atrial fibrillation Patient may be very sensitive to these medications given very low body mass index (2) Acute metabolic encephalopathy Is this a current diagnosis for this admission?: Yes Plan: Likely multifactorial Hyponatremia Pneumonia and infectious process Continue to watch mental status Possible role-play by beta-blockers in confusion. This medication has been stopped. (3) Pneumonia Is this a current diagnosis for this admission?: Yes Plan: Pneumonia being treated with antibiotics. Slow progress.
--- NOTE | 2019-07-05 15:17 | RADIOLOGY REPORT (SQ) ---
EXAM DESCRIPTION: CHEST 2 VIEWS COMPLETED DATE/TIME: 07/05/2019 3:00 pm REASON FOR STUDY: pneumonia COMPARISON: 07/01/2019. EXAM PARAMETERS: NUMBER OF VIEWS: two views TECHNIQUE: Digital Frontal and Lateral radiographic views of the chest acquired. RADIATION DOSE: NA LIMITATIONS: none FINDINGS: LUNGS AND PLEURA: Emphysematous changes. Faint airspace disease in the lung bases with bi lateral pleural effusions. MEDIASTINUM AND HILAR STRUCTURES: No masses or contour abnormalities. HEART AND VASCULAR STRUCTURES: Heart normal size. No evidence for failure. BONES: No acute findings. HARDWARE: Surgical clips in the right upper lobe. OTHER: No other significant finding. IMPRESSION: AIRSPACE DISEASE IN THE LUNG BASES WITH BILATERAL PLEURAL EFFUSIONS. NO SIGNIFICANT INT ERVAL CHANGE. TECHNICAL DOCUMENTATION: JOB ID: [id number] [employer]- All Rights Reserved Reading location - IP/workstation name: [email or web address]
[2019-07-05] MEDS ORDERED: MAGNESIUM HYDROXIDE SUSP 30 ML UDCUP ONE (17:09)
[2019-07-05] MEDS ORDERED: CALCIUM CARBONATE 500 MG TAB.CHEW PO PRN (17:40)
[2019-07-05] MEDS ORDERED: MAGNESIUM HYDROXIDE SUSP 30 ML UDCUP PO ONE (18:15)
[2019-07-05] MEDS: MONTELUKAST SODIUM 10 MG TABLET PO SCH (21:11)
[2019-07-05] MEDS: CLONAZEPAM 1 MG TABLET PO SCH (21:11)
[2019-07-06] MEDS: DILTIAZEM HCL 60 MG TABLET PO SCH ×2 (01:14→05:50)
[2019-07-06] MEDS: UMECLIDINIUM BROMIDE 62.5 MCG/DOSE IH SCH (07:40)
[2019-07-06] MEDS: ANASTROZOLE 1 MG TABLET PO SCH (07:40)
[2019-07-06] MEDS: APIXABAN 2.5 MG TABLET PO SCH ×2 (10:41→17:32)
[2019-07-06] MEDS: CALCIUM CARBONATE 500 MG TABLET PO SCH (10:41)
[2019-07-06] MEDS: SERTRALINE HCL 50 MG TABLET PO SCH (10:41)
[2019-07-06] MEDS: CHOLECALCIFEROL (D3) 400 UNIT TABLET PO SCH (10:41)
[2019-07-06] MEDS: FLUTICASONE/VILANTEROL 200-25 MCG/DOSE IH SCH (10:42)
[2019-07-06] MEDS: LEVOFLOXACIN 750 MG/D5W RTU 750 MG/150 ML RTUPB IV SCH (10:42)
[2019-07-06] MEDS ORDERED: DILTIAZEM HCL 120 MG CAP.SR.24H PO ONE (11:18)
--- NOTE | 2019-07-06 11:22 | PDOC PROGRESS REPORT ---
Subjective Progress Note for:: 07/06/19 Reason For Visit: AFIB 07/06/2019 Lobe pneumonias, atrial fib, confusion, hyponatremia dehydration Physical Exam Vital Signs: Temp Pulse Resp BP Pulse Ox 98.1 F 86 16 122/71 94 07/06/19 07:26 07/06/19 07:26 07/06/19 07:26 07/06/19 07:26 07/06/19 07:26 Intake & Output 07/05/19 07/06/19 07/07/19 06:59 06:59 06:59 Intake Total 520 940 Output Total 1450 600 Balance -930 340 Weight 40.7 kg 39.1 kg General appearance: PRESENT: no acute distress Respiratory exam: PRESENT: decreased breath sounds Cardiovascular exam: PRESENT: RRR. ABSENT: diastolic murmur, rubs, systolic murmur Neurological exam: PRESENT: alert, awake Psychiatric exam: PRESENT: appropriate affect, normal mood. ABSENT: homicidal ideation, suicidal ideation Results Laboratory Results: 07/04/19 07:57 07/04/19 07:57 07/01/19 07/01/19 06:41 06:41 Troponin I 0.022 NT-Pro-B Natriuret Pep 2740 H Impressions: Head CT 07/01/19 10:05 IMPRESSION: 1. No acute intracranial abnormality. 2. Opacification of the left frontal maxillary sinuses and left ethmoid air cells - correlate clinically to exclude an acute sinusitis. EVIDENCE OF ACUTE STROKE: NO. Abdomen/Pelvis CT 07/01/19 10:06 IMPRESSION: 1. Patchy areas of consolidation in the lower lobes suggestive of multifocal pneumonia. 2. No acute intra-abdominal abnormality. 3. Other findings as detailed above. Chest CT 07/01/19 14:38 IMPRESSION: Findings as above are suggestive of multifocal pneumonia (given the patchy areas of consolidation in the lower lobes), on a background of volume overload (given the bilateral pleural effusions, thickening of the interlobular septa, and cardiomegaly). Chest X-Ray 07/05/19 00:00 IMPRESSION: AIRSPACE DISEASE IN THE LUNG BASES WITH BILATERAL PLEURAL EFFUSIONS. NO SIGNIFICANT INTERVAL CHANGE. Assessment and Plan - Diagnosis (1) Acute metabolic encephalopathy Is this a current diagnosis for this admission?: Yes (2) Atrial fibrillation Is this a current diagnosis for this admission?: Yes (3) Confusion Is this a current diagnosis for this admission?: Yes (4) Hyponatremia Is this a current diagnosis for this admission?: Yes (5) Multifocal pneumonia Is this a current diagnosis for this admission?: Yes (6) Dehydration Is this a current diagnosis for this admission?: Yes (7) Acute exacerbation of chronic obstructive pulmonary disease (COPD) Is this a current diagnosis for this admission?: Yes (8) Atrial fibrillation Is this a current diagnosis for this admission?: Yes - Plan Summary Summary: 07/05/2019 Patient's tells me that within about the last 5 years 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 Patient was admitted this time with confusion and bilateral lower lobe pneumonia. Temperature 97.9 pulse 120. Patient's pulse has been anywhere from a low of 53 up to as high as 120, Baseline appears to be about 90. Pressure stable 114/47 O2 sat 94% on 3 L nasal cannula Patient is currently on IV Levaquin Was seen in consultation by oncology for medical history of breast cancer, patient is currently on a REM index, oncology has signed off Patient's Lopressor was discontinued and she was changed instead to Cardizem 60 mg every 8 hours. Due to patient's continued elevated heart rate, will increase her Cardizem to every 6 hours. Yesterday's labs showed a normal CBC Yesterday's chemistry showed sodium 128 potassium 4.5 BUN is 6 creatinine 0.27 Blood culture showed no growth in 72 hours 07/06/2019 Temperature 98, pulse anywhere from 86-105, blood pressure 122/71 O2 sat 94% on 2 L nasal cannula After discussing with cardiology I will switch her Cardizem to CD 120 mg once daily Labs from today are pending, include a BNP Day 6 of IV Levaquin Chest x-ray from yesterday showed airspace disease in the lung bases with bilateral pleural effusions no significant change. Appear to be mostly emphysematous CT scan of the chest dated 01 July showed multifocal lower lobe pneumonia with possible volume overload, I will add a low dose of Lasix - Time Time Spent with patient: 15-24 minutes
[2019-07-06 14:04] LABS: BLOOD UREA NITROGEN 17 mg/dL (7-20); CHLORIDE 84 mmol/L (98-107); GLUCOSE 206 mg/dL (75-110); POTASSIUM 4.6 mmol/L (3.6-5.0)
[2019-07-06 14:08] LABS: HEMATOCRIT 41.6 % (36.0-47.0); HEMOGLOBIN 13.9 g/dL (12.0-15.5); MEAN CORPUSCULAR HEMOGLOBIN 30.1 pg (27.0-33.4); MEAN CORPUSCULAR HGB CONC 33.4 g/dL (32.0-36.0); MEAN CORPUSCULAR VOLUME 90 fl (80-97); PLATELET COUNT 365 10^3/uL (150-450); RED BLOOD COUNT 4.61 10^6/uL (3.72-5.28); RED CELL DISTRIBUTION WIDTH 14.2 % (11.5-14.0); WHITE BLOOD COUNT 6.4 10^3/uL (4.0-10.5)
[2019-07-06 14:13] LABS: ANION GAP 8 (5-19); CARBON DIOXIDE 39 mmol/L (22-30)
[2019-07-06 15:05] LABS: ABSOLUTE LYMPHOCYTES# (MANUAL) 0.3 10^3/uL (0.5-4.7); ABSOLUTE MONOCYTES # (MANUAL) 0.2 10^3/uL (0.1-1.4); BAND NEUTROPHILS % (MANUAL) 3 % (3-5); BASOPHILS % (MANUAL) 0 % (0-2); EOSINOPHILS % (MANUAL) 0 % (0-6); LYMPHOCYTES % (MANUAL) 5 % (13-45); MONOCYTES % (MANUAL) 3 % (3-13); SEGMENTED NEUTROPHILS % (MAN) 89 % (42-78); TOTAL CELLS COUNTED 100
[2019-07-06 15:06] LABS: PLATELET COMMENT ADEQUATE; RBC MORPHOLOGY COMMENT NORMO-CYTIC/CHROMIC
--- NOTE | 2019-07-06 17:24 | PDOC PROGRESS REPORT ---
Subjective Progress Note for:: 07/06/19 Subjective:: Resting in bed. at bedside. Continues to be in atrial fibrillation with relatively controlled ventricular response. Receiving intravenous antibiotics for pneumonia. Reason For Visit: AFIB Physical Exam Vital Signs: Temp Pulse Resp BP Pulse Ox 97.6 F 98 16 141/70 H 96 07/06/19 11:43 07/06/19 14:00 07/06/19 11:43 07/06/19 11:43 07/06/19 13:28 Intake & Output 07/05/19 07/06/19 07/07/19 06:59 06:59 06:59 Intake Total 520 940 240 Output Total 1450 600 Balance -930 340 240 Weight 40.7 kg 39.1 kg General appearance: PRESENT: thin Head exam: PRESENT: atraumatic, normocephalic Eye exam: PRESENT: conjunctiva pink, EOMI Respiratory exam: PRESENT: crackles, decreased breath sounds, symmetrical, unlabored Cardiovascular exam: PRESENT: irregular rhythm, +S1, +S2 Pulses: PRESENT: normal radial pulses GI/Abdominal exam: PRESENT: soft Rectal exam: PRESENT: deferred Neurological exam: PRESENT: alert, oriented to person, oriented to place Skin exam: PRESENT: dry, intact, normal color Results Laboratory Results: 07/06/19 13:19 07/06/19 13:19 07/06/19 07/06/19 13:19 13:19 WBC 6.4 RBC 4.61 Hgb 13.9 Hct 41.6 MCV 90 MCH 30.1 MCHC 33.4 RDW 14.2 H Plt Count 365 Seg Neutrophils % Not Reportable Sodium 131.2 L Potassium 4.6 Chloride 84 L Carbon Dioxide 39 H Anion Gap 8 BUN 17 Creatinine 0.51 L Est GFR ( Amer) > 60 Glucose 206 H Calcium 10.0 07/01/19 07/01/19 07/06/19 06:41 06:41 13:19 Troponin I 0.022 NT-Pro-B Natriuret Pep 2740 H 354 EKG Comments: Telemetry shows atrial fibrillation with controlled ventricular response Impressions: Head CT 07/01/19 10:05 IMPRESSION: 1. No acute intracranial abnormality. 2. Opacification of the left frontal maxillary sinuses and left ethmoid air cells - correlate clinically to exclude an acute sinusitis. EVIDENCE OF ACUTE STROKE: NO. Abdomen/Pelvis CT 07/01/19 10:06 IMPRESSION: 1. Patchy areas of consolidation in the lower lobes suggestive of multifocal pneumonia. 2. No acute intra-abdominal abnormality. 3. Other findings as detailed above. Chest CT 07/01/19 14:38 IMPRESSION: Findings as above are suggestive of multifocal pneumonia (given the patchy areas of consolidation in the lower lobes), on a background of volume overload (given the bilateral pleural effusions, thickening of the interlobular septa, and cardiomegaly). Chest X-Ray 07/05/19 00:00 IMPRESSION: AIRSPACE DISEASE IN THE LUNG BASES WITH BILATERAL PLEURAL EFFUSIONS. NO SIGNIFICANT INTERVAL CHANGE. Assessment & Plan - Diagnosis (1) Atrial fibrillation Is this a current diagnosis for this admission?: Yes Plan: Continue to observe on telemetry Continue systemic anticoagulation apixaban 2.5 mg twice daily Rate control strategy only for this patient. Low-dose diltiazem for rate control and to suppress triggers for atrial fibrillation Titrating medications. (2) Acute metabolic encephalopathy Is this a current diagnosis for this admission?: Yes Plan: Likely multifactorial Hyponatremia Pneumonia and infectious process Continue to watch mental status Possible role-play by beta-blockers in confusion. This medication has been stopped. (3) Pneumonia Is this a current diagnosis for this admission?: Yes Plan: Pneumonia being treated with antibiotics. Slow progress.
[2019-07-06] MEDS: MONTELUKAST SODIUM 10 MG TABLET PO SCH (21:31)
[2019-07-06] MEDS: CLONAZEPAM 1 MG TABLET PO SCH (21:31)
[2019-07-07] MEDS ORDERED: DILTIAZEM HCL 120 MG CAP.SR.24H PO ONE (05:15)
[2019-07-07] MEDS ORDERED: DILTIAZEM HCL INJ 25 MG/5 ML VIAL IV ONE (05:30)
[2019-07-07] MEDS: ANASTROZOLE 1 MG TABLET PO SCH (08:25)
[2019-07-07] MEDS: UMECLIDINIUM BROMIDE 62.5 MCG/DOSE IH SCH (08:26)
[2019-07-07] MEDS: SERTRALINE HCL 50 MG TABLET PO SCH (09:30)
[2019-07-07] MEDS: FLUTICASONE/VILANTEROL 200-25 MCG/DOSE IH SCH (09:30)
[2019-07-07] MEDS: APIXABAN 2.5 MG TABLET PO SCH ×2 (09:30→17:01)
[2019-07-07] MEDS: LEVOFLOXACIN 750 MG/D5W RTU 750 MG/150 ML RTUPB IV SCH (09:31)
[2019-07-07] MEDS: CALCIUM CARBONATE 500 MG TABLET PO SCH (09:36)
[2019-07-07] MEDS: CHOLECALCIFEROL (D3) 400 UNIT TABLET PO SCH (09:41)
--- NOTE | 2019-07-07 11:46 | PDOC PROGRESS REPORT ---
Subjective Progress Note for:: 07/07/19 Reason For Visit: AFIB 07/07/2019 Patient admitted for ammonia, atrial fib, confusion, hyponatremia, dehydration Physical Exam Vital Signs: Temp Pulse Resp BP Pulse Ox 97.8 F 97 16 125/72 90 L 07/07/19 07:33 07/07/19 07:33 07/07/19 07:33 07/07/19 07:33 07/07/19 07:33 Intake & Output 07/06/19 07/07/19 07/08/19 06:59 06:59 06:59 Intake Total 940 1989 150 Output Total 600 1999 Balance 340 -10 150 Weight 39.1 kg 38.2 kg General appearance: PRESENT: no acute distress, other - Patient getting up pretty much by herself to the bedside commode Respiratory exam: PRESENT: clear to auscultation henri. ABSENT: rales, rhonchi, w heezes Cardiovascular exam: PRESENT: RRR. ABSENT: diastolic murmur, rubs, systolic murmur Neurological exam: PRESENT: alert, awake, oriented to person, oriented to place, oriented to time, oriented to situation, CN II-XII grossly intact. ABSENT: mo tor sensory deficit Psychiatric exam: PRESENT: appropriate affect, normal mood. ABSENT: homicidal ideation, suicidal ideation Results Laboratory Results: 07/06/19 13:19 07/06/19 13:19 07/06/19 07/06/19 13:19 13:19 WBC 6.4 RBC 4.61 Hgb 13.9 Hct 41.6 MCV 90 MCH 30.1 MCHC 33.4 RDW 14.2 H Plt Count 365 Seg Neutrophils % Not Reportable Sodium 131.2 L Potassium 4.6 Chloride 84 L Carbon Dioxide 39 H Anion Gap 8 BUN 17 Creatinine 0.51 L Est GFR ( Amer) > 60 Glucose 206 H Calcium 10.0 07/01/19 21:20 Blood Blood Culture - Final NO GROWTH IN 5 DAYS 07/01/19 20:38 Blood Blood Culture - Final NO GROWTH IN 5 DAYS 07/01/19 07/01/19 07/06/19 06:41 06:41 13:19 Troponin I 0.022 NT-Pro-B Natriuret Pep 2740 H 354 Impressions: Head CT 07/01/19 10:05 IMPRESSION: 1. No acute intracranial abnormality. 2. Opacification of the left frontal maxillary sinuses and left ethmoid air cells - correlate clinically to exclude an acute sinusitis. EVIDENCE OF ACUTE STROKE: NO. Abdomen/Pelvis CT 07/01/19 10:06 IMPRESSION: 1. Patchy areas of consolidation in the lower lobes suggestive of multifocal pneumonia. 2. No acute intra-abdominal abnormality. 3. Other findings as detailed above. Chest CT 07/01/19 14:38 IMPRESSION: Findings as above are suggestive of multifocal pneumonia (given the patchy areas of consolidation in the lower lobes), on a background of volume overload (given the bilateral pleural effusions, thickening of the interlobular septa, and cardiomegaly). Chest X-Ray 07/05/19 00:00 IMPRESSION: AIRSPACE DISEASE IN THE LUNG BASES WITH BILATERAL PLEURAL EFFUSIONS. NO SIGNIFICANT INTERVAL CHANGE. Assessment and Plan - Diagnosis (1) Acute metabolic encephalopathy Is this a current diagnosis for this admission?: Yes (2) Atrial fibrillation Is this a current diagnosis for this admission?: Yes (3) Confusion Is this a current diagnosis for this admission?: Yes (4) Hyponatremia Is this a current diagnosis for this admission?: Yes (5) Multifocal pneumonia Is this a current diagnosis for this admission?: Yes (6) Dehydration Is this a current diagnosis for this admission?: Yes (7) Acute exacerbation of chronic obstructive pulmonary disease (COPD) Is this a current diagnosis for this admission?: Yes (8) Atrial fibrillation Is this a current diagnosis for this admission?: Yes - Plan Summary Summary: 07/05/2019 Patient's tells me that within about the last 5 years 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 Patient was admitted this time with confusion and bilateral lower lobe pneumonia. Temperature 97.9 pulse 120. Patient's pulse has been anywhere from a low of 53 up to as high as 120, Baseline appears to be about 90. Pressure stable 114/47 O2 sat 94% on 3 L nasal cannula Patient is currently on IV Levaquin Was seen in consultation by oncology for medical history of breast cancer, patient is currently on a REM index, oncology has signed off Patient's Lopressor was discontinued and she was changed instead to Cardizem 60 mg every 8 hours. Due to patient's continued elevated heart rate, will increase her Cardizem to every 6 hours. Yesterday's labs showed a normal CBC Yesterday's chemistry showed sodium 128 potassium 4.5 BUN is 6 creatinine 0.27 Blood culture showed no growth in 72 hours 07/06/2019 Temperature 98, pulse anywhere from 86-105, blood pressure 122/71 O2 sat 94% on 2 L nasal cannula After discussing with cardiology I will switch her Cardizem to CD 120 mg once daily Labs from today are pending, include a BNP Day 6 of IV Levaquin Chest x-ray from yesterday showed airspace disease in the lung bases with bilateral pleural effusions no significant change. Appear to be mostly emphysematous CT scan of the chest dated 01 July showed multifocal lower lobe pneumonia with possible volume overload, I will add a low dose of Lasix 07/07/2019 Temperature 97.8, pulse between 80 and 120 and regular, blood pressure 130/81, O2 sat 96% on 3 L nasal cannula CBC, electrolytes are both normal. BNP is normal at 354. This was as high as 2740 on July 01 Blood cultures are negative x5 days sputum culture is pending. Patient is on no Lasix Day #7 on Levaquin IV, eliquis 2.5 mg twice daily Patient was supposed to be on Cardizem CD 120 mg daily, not sure why this was discontinued however I will reorder it I anticipate discharge to home in the next 48 hours - Time Time Spent with patient: 25-34 minutes
[2019-07-07] MEDS: DILTIAZEM HCL 120 MG CAP.SR.24H PO SCH (13:34)
[2019-07-07] MEDS ORDERED: POLYETHYLENE GLYCOL 3350 POWDER 17 GM/1 PACKET PO ONE (20:00)
[2019-07-07] MEDS: MONTELUKAST SODIUM 10 MG TABLET PO SCH (21:52)
[2019-07-07] MEDS: CLONAZEPAM 1 MG TABLET PO SCH (21:52)
[2019-07-07] MEDS ORDERED: POLYETHYLENE GLYCOL 3350 POWDER 17 GM/1 PACKET PO SCH (22:00)
[2019-07-08] MEDS: ANASTROZOLE 1 MG TABLET PO SCH (07:59)
[2019-07-08] MEDS: UMECLIDINIUM BROMIDE 62.5 MCG/DOSE IH SCH (07:59)
[2019-07-08] MEDS: LEVOFLOXACIN 750 MG/D5W RTU 750 MG/150 ML RTUPB IV SCH (09:57)
[2019-07-08] MEDS ORDERED: POLYETHYLENE GLYCOL 3350 POWDER 17 GM/1 PACKET PO SCH (10:00)
[2019-07-08] MEDS: APIXABAN 2.5 MG TABLET PO SCH (10:01)
[2019-07-08] MEDS: DILTIAZEM HCL 120 MG CAP.SR.24H PO SCH (10:01)
[2019-07-08] MEDS: SERTRALINE HCL 50 MG TABLET PO SCH (10:01)
[2019-07-08] MEDS: CALCIUM CARBONATE 500 MG TABLET PO SCH (10:01)
[2019-07-08] MEDS: FLUTICASONE/VILANTEROL 200-25 MCG/DOSE IH SCH (10:02)
[2019-07-08] MEDS: CHOLECALCIFEROL (D3) 400 UNIT TABLET PO SCH (10:02)
[2019-07-08 10:15] VITALS: BP 153/79
--- NOTE | 2019-07-19 13:08 | PDOC DISCHARGE SUMMARY ---
Impression - Admit/DC Date/PCP Admission Date/Primary Care Provider: 07/02/19 13:05 JE LEHMAN, ALEXANDRU-Darcy Discharge Date: 07/08/19 - Discharge Diagnosis (1) Acute metabolic encephalopathy Is this a current diagnosis for this admission?: Yes (2) Atrial fibrillation Is this a current diagnosis for this admission?: Yes (3) Confusion Is this a current diagnosis for this admission?: Yes (4) Hyponatremia Is this a current diagnosis for this admission?: Yes (5) Multifocal pneumonia Is this a current diagnosis for this admission?: Yes (6) Dehydration Is this a current diagnosis for this admission?: Yes (7) Acute exacerbation of chronic obstructive pulmonary disease (COPD) Is this a current diagnosis for this admission?: Yes (8) Atrial fibrillation Is this a current diagnosis for this admission?: Yes - Assessment Summary: 07/05/2019 Patient's tells me that within about the last 5 years 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 Patient was admitted this time with confusion and bilateral lower lobe pneumonia. Temperature 97.9 pulse 120. Patient's pulse has been anywhere from a low of 53 up to as high as 120, Baseline appears to be about 90. Pressure stable 114/47 O2 sat 94% on 3 L nasal cannula Patient is currently on IV Levaquin Was seen in consultation by oncology for medical history of breast cancer, patient is currently on a REM index, oncology has signed off Patient's Lopressor was discontinued and she was changed instead to Cardizem 60 mg every 8 hours. Due to patient's continued elevated heart rate, will increase her Cardizem to every 6 hours. Yesterday's labs showed a normal CBC Yesterday's chemistry showed sodium 128 potassium 4.5 BUN is 6 creatinine 0.27 Blood culture showed no growth in 72 hours 07/06/2019 Temperature 98, pulse anywhere from 86-105, blood pressure 122/71 O2 sat 94% on 2 L nasal cannula After discussing with cardiology I will switch her Cardizem to CD 120 mg once daily Labs from today are pending, include a BNP Day 6 of IV Levaquin Chest x-ray from yesterday showed airspace disease in the lung bases with bilateral pleural effusions no significant change. Appear to be mostly emphysematous CT scan of the chest dated 01 July showed multifocal lower lobe pneumonia with possible volume overload, I will add a low dose of Lasix 07/07/2019 Temperature 97.8, pulse between 80 and 120 and regular, blood pressure 130/81, O2 sat 96% on 3 L nasal cannula CBC, electrolytes are both normal. BNP is normal at 354. This was as high as 2740 on July 01 Blood cultures are negative x5 days sputum culture is pending. Patient is on no Lasix Day #7 on Levaquin IV, eliquis 2.5 mg twice daily Patient was supposed to be on Cardizem CD 120 mg daily, not sure why this was discontinued however I will reorder it I anticipate discharge to home in the next 48 hours 07/08/2019 Medically stable for discharge I wrote for Cardizem CD 120 mg daily #30 and Levaquin 750 mg daily for 7 days Patient is to follow-up with Dr. Vargas, , and Dr. Israel Diagnosis is pneumonia, atrial fib, confusion, hyponatremia, dehydration - Additional Information Resuscitation Status: Full Code Discharge Diet: As Tolerated, Cardiac Discharge Activity: Activity As Tolerated, Balance Activity w/Rest, Bedrest Referrals: LEAH VARGAS MD [ACTIVE STAFF] - 10/03/19 1:00 pm JANEEN CARLOS MD [ACTIVE STAFF] - 07/14/19 12:30 pm EMILIANO ISRAEL MD [NO LOCAL MD] - 07/13/19 2:30 pm Prescriptions: Diltiazem HCl [Cardizem Cd 120 mg Capsule] 120 mg PO DAILY 30 Days #30 cap.sr.24h Levofloxacin [Levaquin 750 mg Tablet] 750 mg PO DAILY 7 Days #7 tablet Home Medications: Anastrozole [Arimidex 1 mg Tablet] 1 mg PO QAM 06/29/19 Calcium Carbonate/Vitamin D3 [Calcium 500-Vit D3 600 Caplet] 1 each PO DAILY 06/29/19 Clonazepam [Klonopin] 0.5 mg PO QHS 06/29/19 Fluticasone/Salmeterol [Advair 250-50 Diskus 14 Dose/Diskus] 1 puff IH Q12 06/29/19 Montelukast Sodium [Singulair 10 mg Tablet] 10 mg PO QHS 06/29/19 Sertraline HCl [Zoloft] 25 mg PO DAILY 06/29/19 Tiotropium [place] [Spiriva Respimat] 2 puff IH QAM 06/29/19 Apixaban [Eliquis 2.5 mg Tablet] 2.5 mg PO BID 07/01/19 Metoprolol Tartrate [Lopressor 25 mg Tablet] 25 mg PO Q12 07/01/19 Diltiazem HCl [Cardizem Cd 120 mg Capsule] 120 mg PO DAILY 30 Days #30 cap.sr.24h 07/08/19 Levofloxacin [Levaquin 750 mg Tablet] 750 mg PO DAILY 7 Days #7 tablet 07/08/19 History of Present Illiness History of Present Illness: AXEL NORMAN is a 78 year old female Physical Exam Vital Signs: Temp Pulse Resp BP Pulse Ox 97.8 F 87 22 H 153/79 H 92 07/08/19 10:10 07/08/19 10:10 07/08/19 10:10 07/08/19 10:10 07/08/19 10:10 Results Laboratory Results: WBC 6.4 10^3/uL (4.0-10.5) 07/06/19 13:19 RBC 4.61 10^6/uL (3.72-5.28) 07/06/19 13:19 Hgb 13.9 g/dL (12.0-15.5) 07/06/19 13:19 Hct 41.6 % (36.0-47.0) 07/06/19 13:19 MCV 90 fl (80-97) 07/06/19 13:19 MCH 30.1 pg (27.0-33.4) 07/06/19 13:19 MCHC 33.4 g/dL (32.0-36.0) 07/06/19 13:19 RDW 14.2 % (11.5-14.0) H 07/06/19 13:19 Plt Count 365 10^3/uL (150-450) 07/06/19 13:19 Lymph % (Auto) Not Reportable 07/06/19 13:19 Cotton % (Auto) Not Reportable 07/06/19 13:19 Eos % (Auto) Not Reportable 07/06/19 13:19 Baso % (Auto) Not Reportable 07/06/19 13:19 Absolute Neuts (auto) Not Reportable 07/06/19 13:19 Absolute Lymphs (auto) Not Reportable 07/06/19 13:19 Absolute Monos (auto) Not Reportable 07/06/19 13:19 Absolute Eos (auto) Not Reportable 07/06/19 13:19 Absolute Basos (auto) Not Reportable 07/06/19 13:19 Total Counted 100 07/06/19 13:19 Seg Neutrophils % Not Reportable 07/06/19 13:19 Seg Neuts % (Manual) 89 % (42-78) H 07/06/19 13:19 Band Neutrophils % 3 % (3-5) 07/06/19 13:19 Lymphocytes % (Manual) 5 % (13-45) L 07/06/19 13:19 Monocytes % (Manual) 3 % (3-13) 07/06/19 13:19 Eosinophils % (Manual) 0 % (0-6) 07/06/19 13:19 Basophils % (Manual) 0 % (0-2) 07/06/19 13:19 Abs Neuts (Manual) 5.9 10^3/uL (1.7-8.2) 07/06/19 13:19 Abs Lymphs (Manual) 0.3 10^3/uL (0.5-4.7) L 07/06/19 13:19 Abs Monocytes (Manual) 0.2 10^3/uL (0.1-1.4) 07/06/19 13:19 Absolute Eos (Manual) 0.0 10^3/uL (0.0-0.6) 07/06/19 13:19 Abs Basophils (Manual) 0.0 10^3/uL (0.0-0.2) 07/06/19 13:19 Toxic Granulation 1+ 07/02/19 10:47 Clumped Platelets PRESENT 07/02/19 10:47 Platelet Comment ADEQUATE 07/06/19 13:19 Anisocytosis SLIGHT 07/01/19 06:41 Ovalocytes SLIGHT 07/01/19 06:41 Stomatocytes 1+ 07/02/19 10:47 RBC Morph Comment NORMO-CYTIC/CHROMIC 07/06/19 13:19 Sodium 131.2 mmol/L (137-145) L 07/06/19 13:19 Potassium 4.6 mmol/L (3.6-5.0) 07/06/19 13:19 Chloride 84 mmol/L (98-107) L 07/06/19 13:19 Carbon Dioxide 39 mmol/L (22-30) H 07/06/19 13:19 Anion Gap 8 (5-19) 07/06/19 13:19 BUN 17 mg/dL (7-20) 07/06/19 13:19 Creatinine 0.51 mg/dL (0.52-1.25) L 07/06/19 13:19 Est GFR ( Amer) > 60 (>60) 07/06/19 13:19 Est GFR (Non-Af Amer) Cancelled 07/03/19 08:15 Est GFR (MDRD) Non-Af > 60 (>60) 07/06/19 13:19 Glucose 206 mg/dL (75-110) H 07/06/19 13:19 Serum Osmolality 267 mOsm/kg (275-301) L 07/01/19 06:41 Lactic Acid 1.1 mmol/L (0.7-2.1) 07/01/19 06:41 Calcium 10.0 mg/dL (8.4-10.2) 07/06/19 13:19 Magnesium 1.9 mg/dL (1.6-2.3) 07/04/19 07:57 Total Bilirubin 0.5 mg/dL (0.2-1.3) 07/04/19 07:57 Direct Bilirubin 0.3 mg/dL (0.0-0.4) 07/04/19 07:57 Neonat Total Bilirubin Not Reportable 07/04/19 07:57 Neonat Direct Bilirubin Not Reportable 07/04/19 07:57 Neonat Indirect Bili Not Reportable 07/04/19 07:57 AST 29 U/L (14-36) 07/04/19 07:57 ALT 52 U/L (<35) 07/04/19 07:57 Alkaline Phosphatase 135 U/L (38-126) H 07/04/19 07:57 Ammonia < 8.7 umol/L (9-33) L 07/01/19 16:25 Troponin I 0.022 ng/mL 07/01/19 06:41 NT-Pro-B Natriuret Pep 354 pg/mL (<450) 07/06/19 13:19 Total Protein 5.7 g/dL (6.3-8.2) L 07/04/19 07:57 Albumin 3.1 g/dL (3.5-5.0) L 07/04/19 07:57 EGFR Cancelled 07/03/19 08:15 Urine Color YELLOW 07/01/19 11:55 Urine Appearance CLEAR 07/01/19 11:55 Urine pH 6.0 (5.0-9.0) 07/01/19 11:55 Ur Specific Brice > 1.060 07/01/19 11:55 Urine Protein 30 mg/dL (NEGATIVE) H 07/01/19 11:55 Urine Glucose (UA) NEGATIVE mg/dL (NEGATIVE) 07/01/19 11:55 Urine Ketones TRACE mg/dL (NEGATIVE) H 07/01/19 11:55 Urine Blood NEGATIVE (NEGATIVE) 07/01/19 11:55 Urine Nitrite (Reflex) NEGATIVE (NEGATIVE) 07/01/19 11:55 Urine Bilirubin NEGATIVE (NEGATIVE) 07/01/19 11:55 Urine Urobilinogen 4.0 mg/dL (<2.0) H 07/01/19 11:55 Leukocyte Esterase Rfl NEGATIVE (NEGATIVE) 07/01/19 11:55 Urine RBC (Auto) 4 /HPF 07/01/19 11:55 Urine WBC (Reflex) 3 /HPF 07/01/19 11:55 Squamous Epi Cells Auto <1 /HPF 07/01/19 11:55 Urine Mucus (Auto) RARE /LPF 07/01/19 11:55 Urine Ascorbic Acid 20 (NEGATIVE) H 07/01/19 11:55 Urine Opiates Screen NEGATIVE 07/01/19 11:55 Urine Methadone Screen NEGATIVE 07/01/19 11:55 Ur Barbiturates Screen NEGATIVE 07/01/19 11:55 Ur Phencyclidine Scrn NEGATIVE 07/01/19 11:55 Ur Amphetamines Screen NEGATIVE 07/01/19 11:55 U Benzodiazepines Scrn NEGATIVE 07/01/19 11:55 Urine Cocaine Screen NEGATIVE 07/01/19 11:55 U Marijuana (THC) Screen NEGATIVE 07/01/19 11:55 07/01/19 07/01/19 07/06/19 06:41 06:41 13:19 Troponin I 0.022 NT-Pro-B Natriuret Pep 2740 H 354 Impressions: Head CT 07/01/19 10:05 IMPRESSION: 1. No acute intracranial abnormality. 2. Opacification of the left frontal maxillary sinuses and left ethmoid air cells - correlate clinically to exclude an acute sinusitis. EVIDENCE OF ACUTE STROKE: NO. Abdomen/Pelvis CT 07/01/19 10:06 IMPRESSION: 1. Patchy areas of consolidation in the lower lobes suggestive of multifocal pneumonia. 2. No acute intra-abdominal abnormality. 3. Other findings as detailed above. Chest X-Ray 07/01/19 11:50 IMPRESSION: 1. Acute patchy an asymmetric bibasilar opacities (right greater than left) that could represent multifocal pneumonia. 2. Small bilateral pleural effusions. Chest CT 07/01/19 14:38 IMPRESSION: Findings as above are suggestive of multifocal pneumonia (given the patchy areas of consolidation in the lower lobes), on a background of volume overload (given the bilateral pleural effusions, thickening of the interlobular septa, and cardiomegaly). Chest X-Ray 07/05/19 00:00 IMPRESSION: AIRSPACE DISEASE IN THE LUNG BASES WITH BILATERAL PLEURAL EFFUSIONS. NO SIGNIFICANT INTERVAL CHANGE. Stroke Is this a Stroke Patient?: No Acute Heart Failure - Is this a Heart Failure Patient?: No
== END 2019-07-08 11:30 | disposition home or self-care (01) | DRG 193 ==
LOC: ER 05:40 → EH 15:13 → 5 16:49 → OBSVTOIN 07-02 13:05 → 3N 07-03 00:43
PROVIDERS: ADMIT Internal Medicine; ATTEND Internal Medicine
DX: J18.9 Pneumonia, unspecified organism (principal); G93.41 Metabolic encephalopathy; J44.0 Chronic obstructive pulmonary disease with (acute) lower respiratory infection; E87.1 Hypo-osmolality and hyponatremia; J44.1 Chronic obstructive pulmonary disease with (acute) exacerbation; Z99.81 Dependence on supplemental oxygen; I48.91 Unspecified atrial fibrillation; E86.0 Dehydration; R41.0 Disorientation, unspecified; M19.90 Unspecified osteoarthritis, unspecified site; F32.9 Major depressive disorder, single episode, unspecified; F41.9 Anxiety disorder, unspecified; K76.9 Liver disease, unspecified; Z85.3 Personal history of malignant neoplasm of breast; Z79.01 Long term (current) use of anticoagulants; Z79.899 Other long term (current) drug therapy; Z91.048 Other nonmedicinal substance allergy status; Z88.0 Allergy status to penicillin; Z88.8 Allergy status to other drugs, medicaments and biological substances; Z87.01 Personal history of pneumonia (recurrent); Z87.891 Personal history of nicotine dependence; Z83.6 Family history of other diseases of the respiratory system; Z80.3 Family history of malignant neoplasm of breast
CPT/HCPCS: 36415; 51701; 70450; 71045; 71046; 71250; 74177; 80048; 80053; 80307; 81001; 82140; 83605; 83735; 83880; 83930; 84484; 85025; 87040; 87070; 87077; 87205; 93005; 93010; 99285; G0378; J1956; J3490

== ENCOUNTER → 2019-11-15 | Outpatient (CLI) | payer MEDICARE, BC ==
--- NOTE | 2019-11-15 11:09 | WOMENS IMAGING REPORT ---
EXAM DESCRIPTION: BONE DENSITY HIP/SPINE IMAGES COMPLETED DATE/TIME: 11/15/2019 10:40 am REASON FOR STUDY: M81.0 BONE DENSITY M81.0 AGE-RELATED OSTEOPOROSIS W/O CURRENT PATHOLOGICAL FRAC COMPARISON: 06/29/2017. TECHNIQUE: Dual-Energy X-ray Absorptiometry (DEXA) of the AP Spine and Hip. LIMITATIONS: None. FINDINGS: LUMBAR SPINE: The bone mineral density (BMD) measured from L1-L4 in the AP projection correlates with a T-score of 1.7, which is normal as defined by the World Health Organization. BMD Change vs Baseline: 16.3%. HIP: The bone mineral density (BMD) measured in the left hip correlates with a T-score of -1.6, which is o steopenia as defined by the World Health Organization. BMD Change vs Baseline: -0.3%. 10 year Fracture Risk Assessment: Major Osteoporotic Fracture: 10%. Hip Fracture: 2.8%. IMPRESSION: 1. LUMBAR SPINE WHO CLASSIFICATION: NORMAL. 2. HIP WHO CLASSIFICATION: OSTEOPENIA. OVERALL ASSESSMENT: WHO CLASSIFICATION: OSTEOPENIA. COMMENT: The World Health Organization defines low BMD as follows: T-score: Normal: At or above -1.0 Osteopenia: Between -1.0 and -2.5 Osteoporosis: At or below -2.5 without fractures Established osteoporosis: At or below -2.5 with fractures In general, you may wish to consider: Diagnosis Treatment Follow-up DEXA Normal BMD Prevention 2-3 years Osteopenia Prevention/Therapy 1-2 years Osteoporosis Therapy Yearly TECHNICAL DOCUMENTATION: JOB ID: [id number] 2010 [employer]- All Rights Reserved Reading location - IP/workstation name: [email or web address]
== END ==
LOC: WI 10:20
PROVIDERS: ATTEND Internal Medicine Hematology & Oncology
DX: M81.0 Age-related osteoporosis without current pathological fracture (principal)
CPT/HCPCS: 77080

== ENCOUNTER → 2020-03-16 | Outpatient (CLI) | payer MEDICARE, BC ==
--- NOTE | 2020-03-16 14:15 | WOMENS IMAGING REPORT ---
EXAM DESCRIPTION: 3D SCREENING MAMMO RIGHT IMAGES COMPLETED DATE/TIME: 03/16/2020 10:34 am REASON FOR STUDY: Z12.31 ENCOUNTER FOR SCREENING MAMMOGRAM FOR MALIGNANT NEOPLASM OF BREAST Z12.31 ENCNTR SCREEN MAMMOGRAM FOR MALIGNANT NEOPLASM OF TYREL COMPARISON: 2018 and subsequent EXAM PARAMETERS: Standard craniocaudal and mediolateral oblique views of the breast recorded using d igital acquisition and breast tomosynthesis. Read with the assistance of CAD. .[facility] - [employer] Version 9.2 LIMITATIONS: None. FINDINGS: BREAST LATERALITY: right No suspicious masses, suspicious calcifications or architectural distortion. No areas of concern. IMPRESSION: NEGATIVE MAMMOGRAM. BIRADS 1. BREAST DENSITY: c. The breasts are heterogeneously dense, which may obscure small masses. BIRAD: ASSESSMENT: 1 Negative RECOMMENDATION: RECOMMENDATION: ROUTINE SCREENING. COMMENT: The patient has been notified of the results by letter per SA requirements. Additional no tification policies are in place for contacting patient with suspicious or incomplete findings. Quality ID #225: The [employer] recommends an annual screening mammogram for women aged 40 years or over. This facility utilizes a reminder system to ensure that all patients receive reminder letters, and/or direct phone calls for appointments. This includes reminders for routine scr eening mammograms, diagnostic mammograms, or other Breast Imaging Interventions when appropriate. Th is patient will be placed in the appropriate reminder system. TECHNICAL DOCUMENTATION: FINDING NUMBER: (1) ASSESSMENT: (1) JOB ID: [id number] 2010 [employer] All Rights Reserved Reading location - IP/workstation name: [email or web address]
== END ==
LOC: WI 09:59
PROVIDERS: ATTEND Nurse Practitioner Family
DX: Z12.31 Encounter for screening mammogram for malignant neoplasm of breast (principal)